=== PATIENT | female | born 1930 | race Caucasian/White ===

== ENCOUNTER 2016-10-21 09:57 | Inpatient (IN) | payer OTHER ==
[~2016-10-21] VITALS: Ht 160 cm; Wt 47.6 kg
--- NOTE | ~2016-10-21 | EKG ---
[place] [address] [facility] [place] [address] ELECTROCARDIOGRAM REPORT Name: MARAH BUTTS Room #: 315-P ADM IN M.R.#: [id number] Admission: 10/21/16 Attend Phys: Vikas Levin MD Discharge: Date of : 32 Report #: [id number] THIS REPORT FOR: //name// [facility] ED Test Date: 2016-10-21 Test Time: 10:04:41 Pat Name: MARAH BUTTS Department: Room: [facility] Gender: F Coordinator Skill Training Program: MZOOK : 1930 Requested By: Gopi Jacobsen Order Number: [id number] MD: Israel Wheeler Measurements Intervals [place] Rate: 90 P: 51 AL: 161 QRS: 25 QRSD: 81 T: 60 QT: 342 QTc: 419 Interpretive Statements Sinus rhythm Consider left ventricular hypertrophy Anterior Q waves, possibly due to LVH Compared to ECG 10/10/2016 18:31:21 No significant changes Electronically Signed On 10-22-2016 11:44:35 CDT by Israel Wheeler [email or web address] <ELECTRONICALLY SIGNED> By: Israel Wheeler MD, [facility] 10/22/16 1144 1004 1004 Israel Wheeler MD, [facility] /EPI
--- NOTE | ~2016-10-21 | H ---
[facility] [place] [address] HISTORY AND PHYSICAL Name: MARAH BUTTS Room #: 315-P ADM IN M.R.#: [id number] Admission: 10/21/16 Attend Phys: Vikas Levin MD Discharge: Date of : 32 Report #: [id number] THIS REPORT FOR: //name// CC: Yoni Levin DATE OF SERVICE: 10/21/2016 CHIEF COMPLAINT: Left-sided facial droop, slurred speech and an unusual feeling in her left arm and leg. HISTORY OF PRESENT ILLNESS: When she woke this morning, she noticed that she had a left-sided facial droop with a funny feeling in left arm and leg and had some slurred speech when she called the paramedics. She reports a history of having had strokes over several years that affected her left side and also fine motor skills in both hands. Because of this concern, she called the paramedics, so that she "wouldn't be having a stroke by myself at home." The weakness feelings lasted only 5 or 10 minutes, presumably this refers to the facial droop, but this discomfort feeling persisted on through her Emergency Room visit and until the time of my examination 4 hours later. She reports having a loss of fine motor skills in both hands. She has a history of hemiplegic migraines that are well managed or prevented by medications. She reports that this episode today is not a migraine because she did not have any headache. Review of her hospital records show that on 06/16/2013, she presented to the Emergency Room with acute numbness of her left arm and leg. Records available stretch back to 07/01/2011 when she developed left-sided numbness and tingling in the middle of the night. She went back to sleep and when she awoke in the morning, the left arm numbness and tingling and left hand weakness persisted. The numbness of the left leg persisted, but there was no weakness in the left leg. She did report vaguely having had several TIAs 10 years in the past from that time, which could have been about the year 1999. She was seen in Neurology consultation by Dr. Feldman and followed again the next day, and he felt that she had symptoms suggestive of a TIA with the large vessels remaining open. He thought further evaluation as an outpatient appropriate. Her symptoms were completely resolved in under 24 hours. She next came to the hospital on 08/21/2012 after developing dizziness at home and treating it with a dose of Imitrex. She vomited the Imitrex, and again noticed an increased sensation of iciness and heaviness of her left lower leg, and self presented to the Emergency Room. Dr. Davies of the Neurology service felt there were several features that occurred, but had suggested that her episode was a TIA. She noted weakness in her left leg consistent with her history of sciatica on the 08/21/[address] Davies noticed atrophy of the intrinsic [address] [address] HISTORY AND PHYSICAL Name: MARAH BUTTS Room #: 315-P [facility] IN M.R.#: [id number] Admission: 10/21/16 Attend Phys: Vikas Levin MD Discharge: Date of : 32 Report #: [id number] hand muscles, more on the left than on the right. Fine finger movements were somewhat clumsy partially due to arthritic changes in the hands. There was no weakness in either the right or left upper extremities. There was a 20% decrease in sensitivity to pin prick on the left side relative to the right side in both arms and the legs. She presented again 10 months later with acute onset of numbness in her left arm and leg. The cause of the symptoms was not clear to him and they completely resolved within several hours. On that visit, Dr. Velez and Dr. Feldman felt that she most likely had experienced a hemiplegic migraine. Recommendation was for preventive treatment with verapamil. The previous recommendation against sumatriptan was reaffirmed. She was admitted again for left sided hemiparesis symptoms on 01/22/2014, at which time, Dr. Schreiber again felt they were from hemiplegic migraine and prophylactic medications were adjusted. On 06/05/2015, she had recurrent left-sided symptoms and was again felt to be having a TIA by the Neurology oracle drm consultant, Dr. Joyce. Note is made that the MRI imaging in all of these previous hospitalizations has been negative. She was evaluated by Dr. 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 OTHER PAST MEDICAL HISTORY: She was admitted 09/01/2016 clinically for influenza A, and also had weakness in her left hip and upper thigh pain. She has had COPD, aspiration pneumonia, hypertension, hypothyroidism, SIADH, fractured pelvis 2014, unclear history of diastolic congestive heart failure with a negative nuclear cardiac stress test. MEDICATIONS: List includes metoprolol tartrate 50 mg daily, spironolactone 25 mg daily, gabapentin 300 mg at bedtime daily, 40 mg of amitriptyline at bedtime, omega 3 fatty acid 2000 mg daily, multiple vitamin, vitamins with iron and minerals, calcium with vitamin D, vitamin C 500 mg daily, 81 mg of aspirin daily and levothyroxine 0.05 mg daily. ALLERGIES: AMLODIPINE caused swelling, allergic to MORPHINE. SOCIAL HISTORY: She smoked cigarettes on a very limited social basis when she was in college many decades ago. She said no alcohol use similarly in decades. No recreational drug use. REVIEW OF SYSTEMS: Negative except for a slight cough that began at same time as the left sided facial droop and slurred speech. PHYSICAL EXAMINATION: [facility] [address] [place] [address] HISTORY AND PHYSICAL Name: MARAH BUTTS Room #: 315-P [facility] IN .R.#: [id number] Admission: 10/21/16 Attend Phys: Vikas Levin MD Discharge: Date of : 32 Report #: [id number] GENERAL: Shows an 86-year-old female in no acute distress at the time of my examination. She is awake, alert and oriented and able to answer questions with details. HEENT: Unremarkable. She did not exhibit a left facial droop. The oropharynx is normal. LUNGS: Does have a congested cough, with a few rhonchi. CARDIOVASCULAR: The heart tones are normal and the rhythm is regular. ABDOMEN: Soft and nontender, without hepatosplenomegaly or masses. EXTREMITIES: There is no edema in the lower extremities. Detailed strength testing was not carried out in both hands and the upper arms. There is marked thenar eminence atrophy, more so on the left than on the right, and the patient readily notes that she has lost fine motor movement coordination in the fingers of both hands. There is no clear weakness identified in the legs. The patient was able to walk with the assistance only of holding on to the examiner's hand for balance. At times, she was able to let go of my hand and walk without losing her balance. Her gait was fluid, and she walked freely to the door of her hospital room, turned around and walked back. She did complain of some unsteadiness when she stood up, but specifically denied vertigo. Romberg's test result was normal. IMAGING: Noncontrast CT scan of the head was negative for acute evident according to the Emergency Room physician. Chest x-ray showed that a previous basilar pneumonia from 10/10/2016 had completely resolved radiographically. A hiatal hernia was present and unchanged. DATA: Potassium was low at 3.4, BUN was mildly elevated at 19, but creatinine was stable at 0.7. Blood sugar mildly low at 67. Albumin is low at 2.74, qualifying for severe malnutrition. Ionized calcium was low at 3.3. C-reactive protein was elevated at 13.8, but not as high as 28.3 from 05/05/2015. White blood cells were elevated at 12.4 thousand with a left shift. Note is made that this is despite the fact that her previous pneumonia has cleared by chest x ray. Noted also made that her white blood cell count was 4700 when she had the radiographic findings of pneumonia. Hemoglobin is low at 10.9 compared to 13.3 baseline. There is a left shift of 69% segmented neutrophils. TSH is elevated at 5.228. ASSESSMENT: 1. Episode of left-sided weakness more in the hand than in the leg. She appears to have returned back to baseline at the time of my examination. This could qualify as a transient ischemic attack. 2. Multiple similar events without a permanent neurological deficit [address] [address] HISTORY AND PHYSICAL Name: MARAH BUTTS Room #: 315-P ADM IN M.R.#: [id number] Admission: 10/21/16 Attend Phys: Vikas Levin MD Discharge: Date of : 32 Report #: [id number] attributable to the central nervous system as reviewed in the records above. MRI findings have been reported as negative consistently. 3. Loss of fine motor movement more in the left than the right with thenar muscle atrophy that may fit with carpal tunnel syndrome changes. 4. Serum albumin of 2.7 fulfills criteria for severe malnutrition. 5. Leukocytosis of unclear etiology. 6. Elevated inflammatory marker HSCRP, but less so than 05/05/2015, 2 years ago. 7. Albumin 2.7, qualifies for severe malnutrition. 8. Distant history of left leg weakness explainable from sciatica. 9. Other multiple medical problems. 10. Congested cough symptoms and abnormal lung findings with normal chest x-ray. 11. Hx aspiration. 12. Hx of left sided vocal cord paralysis. 13. SIRS with WBC's over 12,000 and episode of tachycardia 120. Sepsis with inflamation marker of HS-CRP over 2 STD, and suspected aspiration pneumonitis occurring at the time of the event. PLAN: The patient has been admitted. Aspirin 81 mg will be continued, and Plavix 75 mg 1 daily is being added as well as therapeutic anticoagulation with twice daily Lovenox. MRI scanning will be obtained tomorrow, and she may need neurology consultation as well. By: [id number] Vikas Levin MD /nt
[~2016-10-21 09:57] MED LIST: ACCUNEB SO1.25 MG/1; ACETAMINOP500 MG/5 M PO; ALBUTEROL2.5 MG/0.1 INH; ALDACTONE25 MG PO; ALEVE220 M1 PO; AMITRIPTYLINE H10 M1 PO; AMITRIPTYLINE H10 M3 PO; AMITRIPTYLINE H25 M2; ASPIRIN EC81 M1 PO; ATACAND PO; AUGMENTIN 875-1 EACH PO; AZITHROMYCIN 2250 MG PO; C-10001000 M1 PO; CALCIUM 600 +1 EAC1 PO; CALTRATE 600 +1 EACH PO; CALTRATE-600 W1 EACH PO; COMPAZINE IV PUSH; COMPAZINE25 MG RECTAL; COZAAR 25 MG TA25 MG PO; COZAAR 50 MG TA50 M1 PO; COZAAR 50 MG TA50 M2; COZAAR 50 MG TA50 M2 PO; COZAAR100 MG PO; DUONEB 2.5-0.5 M3 ML INH; ENOXAPARIN30 MG/0.1 SUBQ; FLOMAX0.4 MG PO; GABAPENTIN PO; GABAPENTIN100 MG PO; GLUCOSAMIN-CHO1 EACH PO; GLUCOSAMINE &1 EAC1 PO; GLUCOSAMINE CH1 EAC7 PO; GLUCOSAMINE HC500 MG PO; HYDROCORTISONE30 G9 RE; IBUPROFEN 200200 M1 PO; IMITREX 50 MG T50 M1 PO; IMITREX 50 MG T50 MG PO; LEVAQUIN 500 M500 M2 PO; LEVOTHYROXINE0.05 MG PO; LOPRESSOR25 PO; LOPRESSOR50 PO; MECLIZINE HCL25 MG PO; MELOXICAM7.5 MG PO; METOCLOPRAMIDE10 MG PO; METOPROLOL TARTRATE PO; MOBIC7.5 MG PO; MUCINEX DM TABL1 TA1 PO; MULTIVITAMINS PO; MULTIVITAMINS1 EAC7 PO; NAPROSYN250 MG PO; NEURONTIN 300300 M1 PO; NIACIN 500 MG500 M1 PO; NIACIN1000 MG PO; NORTREL1 EAC1 PO; NORTRIPTYLINE H10 M1 PO; NORTRIPTYLINE H50 M3 PO; NUCYNTA50 MG PO; OMEGA-31000 M1 PO; ONDANSETRON HCL4 M1 IV PUSH; PAMELOR10 MG PO; PLAVIX 75 MG TA75 M1 PO; PREDNISONE 10 M10 M1 PO; PREDNISONE 10 M10 MG PO; PREDNISONE 20 M20 MG PO; SPIRONOLACTONE25 M1 PO; TAMIFLU30 MG PO; TOPAMAX 25 MG T25 M1 PO; TOPROL XL25 MG PO; TOPROL XL50 MG PO; TYLENOL325 MG PO; ULTRAM 50MG TAB50 MG PO; UNICOMPLEX M TA1 TA1 PO; VERAPAMIL SR 1120 MG PO; VITAMIN B-1100 M2 PO; VITAMIN D-32000 UNIT PO; VITAMIN D2000 UNIT PO; VITAMIN D400 UNIT; VITAMINC500 PO; ZOFRAN ODT4 MG PO; [UNRECOGNIZED DRUG - CODE] PO; [UNRECOGNIZED DRUG - OTHER]
[2016-10-21 09:58] VITALS: BP 107/72
[2016-10-21 10:11] LABS: POC CA IONIZED 3.3 mg/dL (4.5-5.3); POC CREATININE 0.3 mg/dL (0.6-1.3); POC HEMOGLOBIN 10.9 g/dL (12.0-15.0); POC POTASSIUM 3.4 mmol/L (3.5-5.1)
[2016-10-21] MEDS ORDERED: AMITRIPTYLINE H10 M3 PO (10:12)
[2016-10-21] MEDS ORDERED: OMEGA-31000 M1 PO (10:12)
[2016-10-21] MEDS ORDERED: CALCIUM 600 +1 EAC1 PO (10:14)
[2016-10-21] MEDS ORDERED: UNICOMPLEX M TA1 TA1 PO (10:14)
[2016-10-21] MEDS ORDERED: VITAMINC500 PO (10:15)
[2016-10-21 10:28] LABS: ABSOLUTE NEUTROPHILS 8.5 thou/uL (1.4-8.2); BASOPHILS 0.3 % (0.0-2.0); EOSINOPHILS 2.2 % (0.0-3.0); HEMATOCRIT 42.3 % (37.0-47.0); LYMPHOCYTES 18.9 % (24.0-44.0); MCH 30.6 pg (26.0-34.0); MCHC 33.1 g/dL (28.0-37.0); MCV 92.6 fL (80.0-100.0); MONOCYTES 9.6 % (1.0-8.0); PLATELET COUNT 344 thou/uL (150-400); RBC 4.57 mil/uL (4.20-5.00); RDW 14.2 % (10.5-14.5); WBC 12.4 thou/uL (4.0-11.0)
[2016-10-21 10:29] LABS: MANUAL DIFF NO
[2016-10-21 10:39] LABS: PROTIME 10.8 Seconds (9.3-11.4)
[2016-10-21 10:40] LABS: APTT 23.7 Seconds (24.5-32.8)
[2016-10-21 10:41] LABS: ALBUMIN 2.7 g/dL (3.4-5.0); ALKALINE PHOSPHATASE 60 U/L (46-116); ANION GAP 8 mmol/L (7-16); BUN 19 mg/dL (7-18); CALCIUM 7.9 mg/dL (8.5-10.1); CHLORIDE 103 mmol/L (98-107); CO2 26 mmol/L (21-32); CREATININE 0.7 mg/dL (0.6-1.0); GLUCOSE 91 mg/dL (74-106); MAGNESIUM 1.9 mg/dL (1.8-2.4); SGOT 23 U/L (15-37); SGPT 27 U/L (30-65); SODIUM 137 mmol/L (136-145); TOTAL BILIRUBIN 0.6 mg/dL (<0.1-1.0); TOTAL PROTEIN 6.1 g/dL (6.4-8.2); TROPONIN-I < 0.04 ng/mL (<0.04-0.07)
[2016-10-21 14:24] VITALS: BP 111/65
[2016-10-21 14:40] VITALS: BP 140/70
[2016-10-21 19:50] VITALS: BP 128/80
[2016-10-21 23:30] VITALS: BP 140/95
[2016-10-22] VITALS (7 sets, daily range): BP systolic 111–176; BP diastolic 72–110
[2016-10-23 04:29] VITALS: BP 104/62
[2016-10-23 08:09] VITALS: BP 153/74
[2016-10-23 12:26] LABS: ABSOLUTE NEUTROPHILS 6.3 thou/uL (1.4-8.2); BASOPHILS 0.6 % (0.0-2.0); EOSINOPHILS 2.8 % (0.0-3.0); HEMATOCRIT 42.2 % (37.0-47.0); HEMOGLOBIN 14.1 gm/dL (12.0-15.0); LYMPHOCYTES 17.1 % (24.0-44.0); MCH 31.3 pg (26.0-34.0); MCHC 33.5 g/dL (28.0-37.0); MCV 93.7 fL (80.0-100.0); MONOCYTES 9.6 % (1.0-8.0); PLATELET COUNT 298 thou/uL (150-400); POLYS 69.9 % (36.0-66.0); RBC 4.51 mil/uL (4.20-5.00); RDW 14.4 % (10.5-14.5)
[2016-10-23 12:28] LABS: MANUAL DIFF NO
[2016-10-23 12:51] LABS: ALBUMIN 2.8 g/dL (3.4-5.0); CALCIUM 8.3 mg/dL (8.5-10.1); CREATININE 0.6 mg/dL (0.6-1.0); POTASSIUM 4.3 mmol/L (3.5-5.1); TOTAL BILIRUBIN 0.5 mg/dL (<0.1-1.0)
[2016-10-23 12:57] VITALS: BP 137/81
[2016-10-23 16:51] VITALS: BP 149/81
[2016-10-23 20:00] VITALS: BP 136/79
[2016-10-24 04:00] VITALS: BP 156/88
[2016-10-24 04:04] LABS: AMP/METHAMP Negative (Negative); BARBITURATES Negative (Negative); BENZODIAZEPINES Negative (Negative); COCAINE Negative (Negative); METHADONE Negative (Negative); OPIATES Negative (Negative); PCP Negative (Negative); THC Negative (Negative)
[2016-10-24 08:33] VITALS: BP 100/65
[2016-10-24] MEDS ORDERED: MIRALAX17 GM PO (10:42)
[2016-10-24] MEDS ORDERED: CLOPIDOGREL75 MG PO (10:42)
[2016-10-24] MEDS ORDERED: ACETAMINOPHEN325 M1 PO (10:42)
[2016-10-24] MEDS ORDERED: FLOMAX0.4 MG PO (10:42)
[2016-10-24] MEDS ORDERED: VITAMIN D1000 UNI1 PO (10:42)
[2016-10-24] MEDS ORDERED: LEVOTHYROXIN0.075 MG PO (10:42)
[2016-10-24 12:34] VITALS: BP 131/76
[2016-10-24 16:16] VITALS: BP 131/76
[2016-10-25 09:35] LABS: URINE BILIRUBIN NEGATIVE (Negative); URINE BLOOD TRACE (Negative); URINE COLOR YELLOW; URINE GLUCOSE-RANDOM* NEGATIVE (Negative); URINE KETONES NEGATIVE (Negative); URINE NITRITE NEGATIVE (Negative); URINE PROTEIN (DIPSTICK) NEGATIVE (Negative); URINE UROBILINOGEN 0.2 E.U./dl (0.2-1.0)
== END 2016-10-24 17:15 | disposition home or self-care (01) | DRG 102 ==
LOC: ER 09:57 → EROBS 12:25 → 3N 12:25 → EROBS 14:25 → 3N 14:39
PROVIDERS: Emergency Medicine; Internal Medicine
DX: G43.409 Hemiplegic migraine, not intractable, without status migrainosus (principal); E43 Unspecified severe protein-calorie malnutrition; G92 Toxic encephalopathy; E86.0 Dehydration; E03.9 Hypothyroidism, unspecified; E16.2 Hypoglycemia, unspecified; F17.210 Nicotine dependence, cigarettes, uncomplicated; M54.30 Sciatica, unspecified side; R13.12 Dysphagia, oropharyngeal phase; K21.9 Gastro-esophageal reflux disease without esophagitis; M19.90 Unspecified osteoarthritis, unspecified site; K44.9 Diaphragmatic hernia without obstruction or gangrene; I11.9 Hypertensive heart disease without heart failure; I99.9 Unspecified disorder of circulatory system; Z98.49 Cataract extraction status, unspecified eye; Z90.710 Acquired absence of both cervix and uterus; Z88.8 Allergy status to other drugs, medicaments and biological substances; Z86.73 Personal history of transient ischemic attack (TIA), and cerebral infarction without residual deficits; Z88.6 Allergy status to analgesic agent; Z90.49 Acquired absence of other specified parts of digestive tract
CPT/HCPCS: 10096

== ENCOUNTER 2016-11-20 12:50 | Emergency (ER) | payer OTHER ==
[~2016-11-20] VITALS: Ht 160 cm; Wt 55.3 kg
--- NOTE | ~2016-11-20 | EKG ---
[place] [address] [facility] [place] [address] ELECTROCARDIOGRAM REPORT Name: MARAH BUTTS [id number] Admission: 11/20/16 Attend Phys: Discharge: 11/20/16 Date of : 32 Report #: [id number] THIS REPORT FOR: //name// [facility] ED Test Date: 2016-11-20 Test Time: 13:58:35 Pat Name: MARAH BUTTS Department: Room: Gender: F Helicopter Technician: JESSICA : 1930 Requested By: Marlin Diallo Order Number: [id number] MD: Garth Redd Measurements Intervals [place] Rate: 64 P: 49 PA: 188 QRS: 27 QRSD: 91 T: 39 QT: 408 QTc: 421 Interpretive Statements Sinus rhythm Probable anteroseptal infarct, recent Minimal ST elevation, inferior leads Lateral leads are also involved Electronically Signed On 11-22-2016 9:44:01 CDT by Garth Redd [email or web address] <ELECTRONICALLY SIGNED> By: Garth Redd MD 11/22/16 0944 1358 1358 Garth Redd MD /NIKOS
[~2016-11-20 12:50] MED LIST changes: +ACETAMINOPHEN325 M1 PO; +CLOPIDOGREL75 MG PO; +LEVOTHYROXIN0.075 MG PO; +MIRALAX17 GM PO; +VITAMIN D1000 UNI1 PO
[2016-11-20] MEDS ORDERED: VITAMIN B-1100 M1 PO (13:15)
[2016-11-20 13:58] LABS: ABSOLUTE NEUTROPHILS 4.3 thou/uL (1.4-8.2); BASOPHILS 0.5 % (0.0-2.0); EOSINOPHILS 0.7 % (0.0-3.0); HEMATOCRIT 39.1 % (37.0-47.0); HEMOGLOBIN 13.2 gm/dL (12.0-15.0); LYMPHOCYTES 25.6 % (24.0-44.0); MANUAL DIFF NO; MCH 31.3 pg (26.0-34.0); MCHC 33.6 g/dL (28.0-37.0); MCV 93.1 fL (80.0-100.0); MONOCYTES 8.2 % (1.0-8.0); PLATELET COUNT 322 thou/uL (150-400); RDW 14.3 % (10.5-14.5); WBC 6.7 thou/uL (4.0-11.0)
[2016-11-20 14:05] LABS: ANION GAP 8 mmol/L (7-16); BUN 24 mg/dL (7-18); CALCIUM 8.7 mg/dL (8.5-10.1); CHLORIDE 102 mmol/L (98-107); CO2 27 mmol/L (21-32); CREATININE 0.7 mg/dL (0.6-1.0); GLUCOSE 112 mg/dL (74-106); POTASSIUM 4.4 mmol/L (3.5-5.1); SODIUM 137 mmol/L (136-145)
[2016-11-20 14:17] LABS: NT-PRO BRAIN NAT PEPTIDE 45 pg/mL (<300); TROPONIN-I < 0.04 ng/mL (<0.04-0.07)
[2016-11-20 16:19] VITALS: BP 121/67
== END 2016-11-20 16:20 | disposition home or self-care (01) ==
LOC: ER 12:50
PROVIDERS: Emergency Medicine
DX: R53.1 Weakness (principal); I10 Essential (primary) hypertension; Z86.73 Personal history of transient ischemic attack (TIA), and cerebral infarction without residual deficits; Z88.5 Allergy status to narcotic agent; Z88.8 Allergy status to other drugs, medicaments and biological substances

== ENCOUNTER 2016-11-22 09:52 | Inpatient (IN) | payer OTHER ==
[~2016-11-22] VITALS: Ht 157.5 cm; Wt 54.2 kg
--- NOTE | ~2016-11-22 | HC ---
[facility] [place] [address] CONSULTATION Name: MARAH BUTTS Room #: 437-P ADM IN M.R.#: [id number] Admission: 11/22/16 Attend Phys: Yoni Schreiber MD Discharge: Date of : 32 Report #: [id number] THIS REPORT FOR: //name// CC: Yoni Schreiber DATE OF SERVICE: 11/23/2016 REASON FOR CONSULTATION: Abnormal EKG, rule out myocardial infarction. HISTORY OF PRESENT ILLNESS: The patient is an 86-year-old female with no known heart disease. She follows with a brigadier at [facility] and recently underwent a nuclear stress test on 08/17/2016 which showed an EF of 75% with no ischemic changes. The patient has been having increased fatigue, has had some nausea and vomiting. She denies any problems with chest pain or chest tightness. She reports she has chronic shortness of breath of unclear etiology. She denies any problems with PND, orthopnea, presyncope or syncope. PAST MEDICAL HISTORY: 1. Paralyzed vocal cord. 2. Hypertension. 3. Some diastolic heart failure. 4. Prior TIAs. 5. Hypothyroidism,. 6. Possible COPD. 7. Migraines headaches. SOCIAL HISTORY: She lives at [employer]. Her was a physician who recently . She reports she smoked diffuse cigarettes in college. FAMILY HISTORY: Includes prior CVAs. MEDICATIONS: At home include metoprolol, spironolactone, gabapentin, multivitamin, calcium, ascorbic acid, thiamine, tamsulosin, Tylenol, and Synthroid. ALLERGIES: INCLUDE AMLODIPINE AND MORPHINE. REVIEW OF SYSTEMS: GENERAL: She reports some subjective fevers at home, but no chills. HEENT: No sore throat. CARDIOVASCULAR: As above. PULMONARY: Chronic shortness of breath, but no productive cough. GASTROINTESTINAL: She had some nausea, vomiting at home a few days ago. GENITOURINARY: No dysuria. MUSCULOSKELETAL: No myalgias, arthralgias. ENDOCRINE: Thyroid issues. [facility] [address] [place] [address] CONSULTATION Name: MARAH BUTTS Room #: [facility] IN .R.#: [id number] Admission: 11/22/16 Attend Phys: Yoni Schreiber MD Discharge: Date of : 32 Report #: [id number] NEUROLOGIC: Some possible TIAs in the past. PHYSICAL EXAMINATION: VITAL SIGNS: Temperature 36.8, pulse 85, respiration 20, blood pressure 109/69, sats are 93%. GENERAL: She is in no acute distress. HEENT: Oropharynx clear. Sclerae anicteric. NECK: Supple, no thyromegaly. HEART: Regular rate and rhythm with normal S1, S2. No S3, S4. She does not have elevated jugular venous pressure, nor does she have a positive hepatojugular reflex. LUNGS: Clear to auscultation bilaterally. ABDOMEN: Soft, nontender, nondistended with no hepatosplenomegaly. EXTREMITIES: There is no clubbing, cyanosis, edema. Cranial nerves 2-12 are intact. LABORATORY DATA: A pH 7.4, pCO2 of 30, pO2 71, CBC: White count 7.1, hemoglobin 13, platelets are 336, her coags D-dimer is 0.4. Chemistries: Sodium 135, potassium 4.1, creatinine 0.6. Troponin x 1 negative. CRP is normal. BNP is pending. I reviewed her prior 12-lead EKGs which showed normal sinus rhythm, normal intervals and no active ischemia with some mild early repolarization noted. There is suggestion of a possible anterior infarct; however, based on her echocardiogram today, which has been read she has normal LV size and function with no evidence of a regional wall motion abnormalities to suggest a recent myocardial infarction. EF is 60%. There is some grade 1 diastolic dysfunction. Normal right ventricular size, some mild aortic regurgitation and some mild pulmonary hypertension with PA pressures in the 30s and of note, I have reviewed her nuclear stress test performed at the [facility] on 08/17/2016 showing no evidence of ischemia or prior infarct with a preserved EF. ASSESSMENT AND PLAN: In summary, the patient is an 86-year-old female presenting with increased weakness, fatigue, who had an abnormal EKG. Based on my interpretation I do not believe there is any acute ischemia. The patient also has no symptoms to suggest any ongoing cardiac issues. Her echocardiogram today fortunately was normal. As such, I do not think a cardiac component is involved at this time. I would recommend a routine followup with her primary brigadier and continued optimization of her cardiovascular risk factors. Thank you for allowing me to participate in her care. Feel free to contact me with any questions. By: [id number] Garth Redd MD /nt
--- NOTE | ~2016-11-22 | EKG ---
[address] [address] ELECTROCARDIOGRAM REPORT Name: MARVA BUTTSETTA KATELYN Room #: 437-P [facility] IN M.R.#: [id number] Admission: 11/22/16 Attend Phys: Yoni Schreiber MD Discharge: 11/24/16 Date of : 32 Report #: [id number] THIS REPORT FOR: //name// [facility] Test Date: 2016-11-23 Test Time: 13:14:43 Pat Name: MARAH BUTTS Department: Room: 437 P Gender: F Environment Artist: WAQAS : 1930 Requested By: Garth Redd Order Number: [id number] MD: Garth Redd Measurements Intervals [place] Rate: 78 P: 48 DC: 173 QRS: 12 QRSD: 81 T: 38 QT: 379 QTc: 432 Interpretive Statements Sinus rhythm Left atrial enlargement Anteroseptal infarct, age indeterminate Electronically Signed On 11-27-2016 8:17:50 CDT by Garth Redd [email or web address] <ELECTRONICALLY SIGNED> By: Garth Redd MD 11/27/16 0817 1314 13 Garth Redd MD /NIKOS
--- NOTE | ~2016-11-22 | H ---
[facility] [place] [address] HISTORY AND PHYSICAL Name: MARAH GUZMAN Room #: 437-P ADM IN M.R.#: [id number] Admission: 11/22/16 Attend Phys: Yoni Schreiber MD Discharge: Date of : 34 Report #: [id number] THIS REPORT FOR: //name// CC: Yoni Schreiber DATE OF SERVICE: 11/22/2016 HISTORY OF PRESENT ILLNESS: The patient presented at the Emergency Room on 11/20/2016 with complaints of chest congestion especially with concerns regarding history of aspiration pneumonia. The general impression upon of the Emergency Room was that of generalized weakness. Her vital signs at that time were good and extensive workup failed to reveal any significant problems with hypoxia or elevated white blood cell count or any evidence of an infiltrate on chest x-ray. She called me back today stating that she felt quite weak, unable to get out of bed and cared for herself and felt again as though she was suffering from pneumonia. Arranged for her to be directly admitted to the hospital for further evaluation and treatment. PAST MEDICAL HISTORY: Very extensive and includes paralyzed vocal cord, which is related to her problems with aspiration. She also has hypertension, some diastolic heart dysfunction, recurrent aspiration pneumonia. She has had episodes of hemiplegia, which have been variably diagnosed as transient ischemic attacks versus hemiplegic migraines in the past. She has been seen by multiple neurologists in the past. She has also been worked up for her multiple somatic issues at the [facility]. She also has history of urinary retention, hypothyroidism, osteoporosis, osteoarthritis multiple sites, peripheral neuropathy and vitamin B12 deficiency. 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 MEDICATIONS: At the time of admission include metoprolol, spironolactone, gabapentin, multivitamin, calcium with vitamin D3, ascorbic acid, thiamine, tamsulosin, p.r.n. Tylenol, polyethylene glycol for constipation, levothyroxine and cholecalciferol. ALLERGIES: She is allergic to AMLODIPINE and MORPHINE. SOCIAL HISTORY: The patient lives alone in [facility] in home. She was about a year ago from Dr. Jose Guzman. She smoked for a time many years ago, but has not smoked a very long time. Has never had any vices related to alcohol or recreational drug use. She has 4, 5 children, I believe and multiple grandchildren. 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 [address] [address] HISTORY AND PHYSICAL Name: MARAH GUZMAN Room #: 437-P [facility] IN M.R.#: [id number] Admission: 11/22/16 Attend Phys: Yoni Schreiber MD Discharge: Date of : 32 Report #: [id number] FAMILY HISTORY: Significant for heart disease and strokes in multiple family members. REVIEW OF SYSTEMS: She denies any fever, chills or sweats. She denies vomiting or nausea, but just feels lousy, very nonspecifically. She feels better when she is lying down. She feels worse when she is standing up and she cannot walk very far before she has to lie down again. She denies any problems with swelling or any new joint pains or aches. She always uses her walker and she has not had any falls recently, she relates, and she did not fall to the ground but rather caught herself with her walker. The last time she was treated with steroids was at least 1 month ago. PHYSICAL EXAMINATION: Today, VITAL SIGNS: At the hospital reveal temperature 98 on arrival with pulse 62, respirations 13 per minute, blood pressure 113/65 and oxygen saturation on room air of 98%. Her height today is 5 feet 2 inches and has variably been reported as tall as 5 feet 4 inches in the hospital chart. Her current weight on bed scale was 119.5 pounds. GENERAL: This is a very pleasant older white female who keeps her hair in youthful red color. HEENT: Extraocular muscles are intact. There is some redundancy of her eyelids. Oropharynx moist and pink. Sinus is nontender. Hearing grossly normal. NECK: Without adenopathy or thyromegaly or mass. LUNGS: Fairly clear except for some crackles in the left base. No dullness noted. No wheezing noted. No respiratory distress while recumbent. CARDIAC: Reveals a distant, but regular rhythm. ABDOMEN: Soft, bowel sounds present, no visceromegaly or masses. EXTREMITIES: Without cyanosis or clubbing or significant peripheral edema. She does have significant degenerative changes in her hands, especially with a swan neck deformity noted in her first metacarpophalangeal joints. The strength is generally good throughout and equal on both sides. Gait was not reassessed, but she assured me she was able to walk fairly normally for short distances. RECTAL: Not performed today. NEUROLOGIC: No focal deficits of cranial nerves or deep tendon reflexes were otherwise noted today. ASSESSMENT AND PLAN: 1. Aspiration pneumonia, appears to be the most likely diagnosis with the patient's presentation, even though her preliminary chest x-ray in the Emergency Room 48 hours before was negative. We will test again. I think it is quite likely, however, that she forgets to position her head appropriately when she swallows, as previously instructed. We will have speech therapy to visit with her again about this and monitor closely. She may be somewhat dehydrated, although it is not immediately obvious on clinical exam. We will get cultures to start her on intravenous antibiotics immediately and monitor her closely. We [facility] [address] [place] [address] HISTORY AND PHYSICAL Name: MARAH GUZMAN Room #: 437-P [facility] IN .R.#: [id number] Admission: 11/22/16 Attend Phys: Yoni Schreiber MD Discharge: Date of : 32 Report #: [id number] will need to check an arterial blood gas and D-dimer checking for any evidence of pulmonary emboli. If her D-dimer is elevated and her alveolar arterial oxygen gradient is significantly elevated, we will entertain that diagnosis and perhaps pursue angiography of the pulmonary arteries. 2. Generalized malaise accompanying the above. The pneumonia is most likely cause; however, given the use of steroids in her not so distant past, I will test her for adrenal gland insufficiency on the morning following this admission and then while awaiting for results, start her on intravenous hydrocortisone as a sort of clinical test to see if she gets any improvement in her symptoms on that basis. I plan to give her 3 doses and then to reassess her clinical status. She will be getting intravenous fluids starting this afternoon as well and if she is dehydrated, this should help. We will be awaiting chemistry and CBC and urinalysis from the admit labs. 3. Hypertension. We will monitor and treat accordingly. Continue home medications at this time. 4. Hypothyroidism. Continue current medications. 5. Hyperlipidemia. We will continue current medications. 6. Osteoarthritis, exercise and medications appeared to be her best choice at the present time. 7. Diastolic congestive heart failure in the past. I do not think this appears to be an issue at this time, but we will monitor and treat accordingly. Will try and avoid excessive over rehydration intravenously. 8. Osteoporosis. 9. History of chronic dysphagia. See the speech therapy evaluation. No dietary restrictions. <ELECTRONICALLY SIGNED> By: Yoni Schreiber MD 11/23/16 0914 1734 1858 Yoni Schreiber MD /nt
--- NOTE | ~2016-11-22 | EKG ---
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: VIDHYA : [id number] Requested By: Yoni Schreiber Order Number: [id number] MD: Garth Redd Measurements Intervals [place] Rate: 68 P: -7 CO: 165 QRS: 36 QRSD: 84 T: 47 QT: 396 QTc: 422 Interpretive Statements Sinus rhythm Probable anteroseptal infarct, recent Compared to ECG 11/20/2016 13:58:35 ST (T wave) deviation no longer present Myocardial infarct finding still present Electronically Signed On 11-27-2016 8:08:37 CDT by Garth Redd [email or web address] <ELECTRONICALLY SIGNED> By: Garth Redd MD 11/27/16 0808 23 23 Garth Redd MD /EPI
--- NOTE | ~2016-11-22 | 2DMMODE ---
[facility] [place] [address] 2 D/M-MODE ECHOCARDIOGRAM Name: MARAH BUTTS Room #: 437-P [facility] IN M.R.#: [id number] Admission: 11/22/16 Attend Phys: Yoni Schreiber MD Discharge: Date of : 32 Date of Service: 11/23/16 1256 Report #: [id number] THIS REPORT FOR: //name// APPROVED REPORT Study performed: 11/23/2016 11:53:56 EXAM: Comprehensive 2D, Doppler, and color-flow Echocardiogram Patient Location: Echo lab Room #: 437 Blood Pressure: 124/84 mmHg HR: 71 bpm Rhythm: NSR Other Information Study Quality: Good Indications Abnormal EKG. Hx: TIA, HTN 2D Dimensions RVDd: 33.20 mm LVEF(%): 52.76 (>50%) IVSd: 9.95 (7-11mm) LVOT Diam: 20.76 (18-24mm) LVDd: 32.00 mm PWd: 10.09 (7-11mm) Ascending Ao: 33.28 (22-36mm) LVDs: 23.61 (25-40mm) Aortic Root: 33.12 mm Terrazas's LVEF: 52.76 % Volumes Left Atrial Volume (Systole) Single Plane 4CH: 55.56 mL Single Plane 2CH: 54.44 mL LA ESV Index: 38.00 mL/m2 Aortic Valve AoV Peak Saul.: 1.40 m/s AO Peak Gr.: 7.79 mmHg LVOT Max P.17 mmHg LVOT Max V: 1.14 m/s BIJAN Vmax: 2.76 cm2 AI Vmax: 3.94 m/s AI Massac: 1.69 m/s2 AI PHT: 675.39 ms [facility] [place] [address] 2 D/M-MODE ECHOCARDIOGRAM Name: MARAH BUTTS Room #: 437-P [facility] IN M.R.#: [id number] Admission: 11/22/16 Attend Phys: Yoni Schreiber MD Discharge: Date of : 32 Date of Service: 11/23/16 1256 Report #: [id number] Mitral Valve E/A Ratio: 0.8 MV Decel. Time: 230.84 ms MV E Max Saul.: 0.83 m/s MV A Saul.: 1.06 m/s MV PHT: 66.94 ms IVRT: 107.27 ms Pulmonary Valve PV Peak Saul.: 0.79 m/s PV Peak Gr.: 2.47 mmHg Pulmonary Vein P Vein S: 51.3 m/s P Vein D: 32.8 m/s Tricuspid Valve TR Peak Saul.: 2.64 m/s RAP Estimate: 5.00 mmHg TR Peak Gr.: 27.95 mmHg RVSP: 33.00 mmHg Left Ventricle The left ventricle is normal size. There is normal LV segmental wall motion. Mild basal septal hypertrophy is present. Left ventricular systolic function is normal. LVEF is 60%. Grade I - abnormal relaxation pattern. Right Ventricle The right ventricle is normal size. The right ventricular systolic function is normal. Atria Left atrium is mildly dilated. The right atrium size is normal. Aortic Valve Aortic valve leaflets are mildly thickened. Mild aortic regurgitation. There is no aortic valvular stenosis. Mitral Valve Mitral valve leaflets are mildly calcified. Trace mitral regurgitation. No evidence of mitral valve stenosis. Tricuspid Valve The tricuspid valve is normal in structure. There is moderate tricuspid regurgitation. The right atrial pressure is estimated at 5 mmHg. There is mild pulmonary hypertension with an estimated PAP of [facility] [address] [place] [address] 2 D/M-MODE ECHOCARDIOGRAM Name: MARAH BUTTS Room #: 437-P [facility] IN ..#: [id number] Admission: 11/22/16 Attend Phys: Yoni Schreiber MD Discharge: Date of : 32 Date of Service: 11/23/16 1256 Report #: [id number] 33mmHg. Pulmonic Valve The pulmonary valve is normal in structure. Mild to moderate pulmonic regurgitation. Great Vessels The aortic root is normal in size. The ascending aorta is normal in size. IVC is normal in size and collapses >50% with inspiration. Pericardium There is no pericardial effusion. <Conclusion> The left ventricle is normal size. LVEF is 60%. Left atrium is mildly dilated. Aortic valve leaflets are mildly thickened. Mild aortic regurgitation. Mitral valve leaflets are mildly calcified. Trace mitral regurgitation. The tricuspid valve is normal in structure. There is moderate tricuspid regurgitation. The right atrial pressure is estimated at 5 mmHg. There is mild pulmonary hypertension with an estimated PAP of 33mmHg. The pulmonary valve is normal in structure. Mild to moderate pulmonic regurgitation. <ELECTRONICALLY SIGNED> By: Harshal Rodríguez MD 11/23/16 1256 1256 1256 Harshal Rodríguez MD /INF
[~2016-11-22 09:52] MED LIST changes: +VITAMIN B-1100 M1 PO
[2016-11-22 14:46] LABS: ABSOLUTE NEUTROPHILS 4.5 thou/uL (1.4-8.2); BASOPHILS 0.6 % (0.0-2.0); EOSINOPHILS 0.9 % (0.0-3.0); HEMATOCRIT 39.6 % (37.0-47.0); HEMOGLOBIN 13.2 gm/dL (12.0-15.0); LYMPHOCYTES 25.3 % (24.0-44.0); MCHC 33.4 g/dL (28.0-37.0); MCV 92.8 fL (80.0-100.0); MONOCYTES 10.3 % (1.0-8.0); PLATELET COUNT 336 thou/uL (150-400); POLYS 62.9 % (36.0-66.0); RBC 4.27 mil/uL (4.20-5.00); RDW 14.4 % (10.5-14.5); WBC 7.1 thou/uL (4.0-11.0)
[2016-11-22 14:47] LABS: MANUAL DIFF NO
[2016-11-22 14:54] LABS: ANION GAP 4 mmol/L (7-16); BUN 20 mg/dL (7-18); CALCIUM 8.5 mg/dL (8.5-10.1); CHLORIDE 104 mmol/L (98-107); CO2 27 mmol/L (21-32); CREATININE 0.6 mg/dL (0.6-1.0); GLUCOSE 106 mg/dL (74-106); POTASSIUM 4.1 mmol/L (3.5-5.1); SODIUM 135 mmol/L (136-145)
[2016-11-22 14:58] LABS: ABG SAMPLE TYPE ARTERIAL; BE(vivo) -1.2 mmol/L (-2 to +3); HCO3 21.6 mmol/L (22.0-26.0); LACTATE 0.84 mmol/L (0.5-2.0); O2(CT) 18.1 mL/dL (15.0-23.0); O2Hb 94.1 % (92.0-98.0); PCO2 30.8 mmHg (35.0-45.0); PO2 71.8 mmHg (80.0-100.0); pH 7.464 (7.360-7.450); sO2 95.5 % (92.0-98.0); tCO2 22.6 mmol/L (24.0-30.0)
[2016-11-22 14:59] LABS: STICK SITE R.BRACHIAL
[2016-11-22 15:01] LABS: ALBUMIN 3.4 g/dL (3.4-5.0); ALKALINE PHOSPHATASE 60 U/L (46-116); SGOT 18 U/L (15-37); SGPT 21 U/L (30-65); TOTAL BILIRUBIN 0.4 mg/dL (<0.1-1.0); TOTAL PROTEIN 6.7 g/dL (6.4-8.2); TROPONIN-I < 0.04 ng/mL (<0.04-0.07)
[2016-11-22 17:20] LABS: URINE BILIRUBIN NEGATIVE (Negative); URINE BLOOD NEGATIVE (Negative); URINE COLOR YELLOW; URINE GLUCOSE-RANDOM* NEGATIVE (Negative); URINE KETONES NEGATIVE (Negative); URINE LEUKOCYTES-REFLEX NEGATIVE (Negative); URINE PROTEIN (DIPSTICK) NEGATIVE (Negative); URINE UROBILINOGEN 0.2 E.U./dl (0.2-1.0)
[2016-11-22 19:35] VITALS: BP 135/65
[2016-11-23 05:28] VITALS: BP 125/60
[2016-11-23 08:00] VITALS: BP 109/69
[2016-11-23 13:26] LABS: NT-PRO BRAIN NAT PEPTIDE 68 pg/mL (<300); TROPONIN-I < 0.04 ng/mL (<0.04-0.07)
[2016-11-23 15:10] LABS: CORTISOL BASELINE 4.8 ug/dL (()); CORTISOL POST 24.4 ug/dL (Not Estab.)
[2016-11-23 16:00] VITALS: BP 144/83
[2016-11-23 20:02] VITALS: BP 132/77
[2016-11-24 04:07] VITALS: BP 142/77
[2016-11-24 16:46] VITALS: BP 142/77
[2016-11-24] MEDS ORDERED: ASPIR 8181 MG PO (16:52)
[2016-11-24] MEDS ORDERED: NORTRIPTYLINE H10 M1 PO (16:53)
== END 2016-11-24 18:00 | disposition home or self-care (01) | DRG 178 ==
LOC: 4S 09:52
PROVIDERS: Internal Medicine; Internal Medicine Cardiovascular Disease
DX: J69.0 Pneumonitis due to inhalation of food and vomit (principal); E27.40 Unspecified adrenocortical insufficiency; I50.30 Unspecified diastolic (congestive) heart failure; E03.9 Hypothyroidism, unspecified; M81.0 Age-related osteoporosis without current pathological fracture; M19.90 Unspecified osteoarthritis, unspecified site; G62.9 Polyneuropathy, unspecified; K21.9 Gastro-esophageal reflux disease without esophagitis; R13.13 Dysphagia, pharyngeal phase; I11.0 Hypertensive heart disease with heart failure; J38.00 Paralysis of vocal cords and larynx, unspecified; J44.9 Chronic obstructive pulmonary disease, unspecified; Z60.2 Problems related to living alone; E78.5 Hyperlipidemia, unspecified; G43.409 Hemiplegic migraine, not intractable, without status migrainosus; Z90.710 Acquired absence of both cervix and uterus; Z79.82 Long term (current) use of aspirin; Z79.899 Other long term (current) drug therapy; Z86.73 Personal history of transient ischemic attack (TIA), and cerebral infarction without residual deficits; Z87.891 Personal history of nicotine dependence; Z88.8 Allergy status to other drugs, medicaments and biological substances; Z88.6 Allergy status to analgesic agent; Z98.49 Cataract extraction status, unspecified eye; Z90.49 Acquired absence of other specified parts of digestive tract; Z82.3 Family history of stroke; Z82.49 Family history of ischemic heart disease and other diseases of the circulatory system
CPT/HCPCS: 10100

== ENCOUNTER → 2017-01-02 | Outpatient (CLI) | payer OTHER ==
[~2017-01-02] MED LIST changes: +ASPIR 8181 MG PO
== END ==
LOC: RAD 08:42
DX: Z12.31 Encounter for screening mammogram for malignant neoplasm of breast (principal)

== ENCOUNTER → 2017-01-04 | Outpatient (CLI) | payer OTHER | LOC: RAD 07:38 → ULTRA 07:38 | DX: R92.8 Other abnormal and inconclusive findings on diagnostic imaging of breast (principal) ==

== ENCOUNTER 2017-02-26 13:16 | Emergency (ER) | payer OTHER ==
[~2017-02-26] VITALS: Ht 160 cm; Wt 54.4 kg
[2017-02-26 14:14] LABS: HEMATOCRIT 44.5 % (37.0-47.0); HEMOGLOBIN 15.1 gm/dL (12.0-15.0); MCH 32.1 pg (26.0-34.0); MCHC 33.8 g/dL (28.0-37.0); MCV 94.9 fL (80.0-100.0); PLATELET COUNT 258 thou/uL (150-400); RBC 4.69 mil/uL (4.20-5.00); WBC 7.3 thou/uL (4.0-11.0)
[2017-02-26 14:15] LABS: MANUAL DIFF YES
[2017-02-26 14:21] LABS: CALCIUM 8.7 mg/dL (8.5-10.1); CREATININE 0.7 mg/dL (0.6-1.0); POTASSIUM 3.6 mmol/L (3.5-5.1)
[2017-02-26 14:31] LABS: ABSOLUTE NEUTROPHILS 6.4 thou/uL (1.4-8.2); PLATELET ESTIMATE NORMAL; TOTAL CELL COUNT 100
[2017-02-26 14:48] LABS: URINE BILIRUBIN NEGATIVE (Negative); URINE BLOOD 2+ (Negative); URINE COLOR YELLOW; URINE GLUCOSE-RANDOM* NEGATIVE (Negative); URINE KETONES NEGATIVE (Negative); URINE LEUKOCYTES-REFLEX 1+ (Negative); URINE PROTEIN (DIPSTICK) NEGATIVE (Negative); URINE UROBILINOGEN 0.2 E.U./dl (0.2-1.0)
[2017-02-26 15:01] LABS: CASTS None Seen /LPF (None Seen); CRYSTALS None Seen /LPF (None Seen); SQUAMOUS None Seen /LPF (0-3); URINE RBC None Seen /HPF (0-2); URINE WBC-REFLEX 6-15 Few /HPF (0-5)
[2017-02-26] MEDS ORDERED: KEFLEX500 MG PO (15:09)
[2017-02-26 15:17] VITALS: BP 121/64
== END 2017-02-26 15:18 | disposition home or self-care (01) ==
LOC: ER 13:16
PROVIDERS: Emergency Medicine
DX: N39.0 Urinary tract infection, site not specified (principal); I10 Essential (primary) hypertension; Z86.73 Personal history of transient ischemic attack (TIA), and cerebral infarction without residual deficits; Z88.5 Allergy status to narcotic agent; Z88.1 Allergy status to other antibiotic agents

== ENCOUNTER 2017-04-17 10:31 | Inpatient (IN) | payer OTHER ==
[~2017-04-17] VITALS: Ht 160 cm; Wt 54.4 kg
[~2017-04-17 10:31] MED LIST changes: +KEFLEX500 MG PO
[2017-04-17 10:32] VITALS: BP 156/77
[2017-04-17 11:10] LABS: HEMATOCRIT 44.8 % (37.0-47.0); HEMOGLOBIN 15.2 gm/dL (12.0-15.0); MCH 32.4 pg (26.0-34.0); MCHC 33.9 g/dL (28.0-37.0); MCV 95.4 fL (80.0-100.0); RBC 4.69 mil/uL (4.20-5.00); RDW 13.8 % (10.5-14.5); WBC 9.7 thou/uL (4.0-11.0)
[2017-04-17 11:14] LABS: CALCIUM 9.2 mg/dL (8.5-10.1); CREATININE 0.6 mg/dL (0.6-1.0); POTASSIUM 4.2 mmol/L (3.5-5.1)
[2017-04-17 11:39] LABS: URINE BILIRUBIN NEGATIVE (Negative); URINE BLOOD 2+ (Negative); URINE COLOR YELLOW; URINE GLUCOSE-RANDOM* NEGATIVE (Negative); URINE KETONES TRACE (Negative); URINE LEUKOCYTES-REFLEX NEGATIVE (Negative); URINE PROTEIN (DIPSTICK) NEGATIVE (Negative); URINE UROBILINOGEN 0.2 E.U./dl (0.2-1.0)
[2017-04-17 11:55] LABS: CASTS None Seen /LPF (None Seen); SQUAMOUS 0-3 Few /LPF (0-3); URINE RBC 3-10 Few /HPF (0-2); URINE WBC-REFLEX 0-5 Rare /HPF (0-5)
[2017-04-17 11:58] LABS: AMORPHOUS PHOSPHATES Many /LPF (None Seen)
[2017-04-17 13:36] VITALS: BP 174/80
[2017-04-17 14:09] VITALS: BP 178/76
[2017-04-17 20:00] VITALS: BP 179/97
[2017-04-18 04:00] VITALS: BP 119/89
[2017-04-18 08:19] VITALS: BP 140/77
[2017-04-18 16:48] VITALS: BP 119/67
[2017-04-18 20:00] VITALS: BP 131/62
[2017-04-18] MEDS ORDERED: BACTRIM DS TAB1 EACH PO (23:22)
[2017-04-18] MEDS ORDERED: TYLENOL EXTRA500 MG PO (23:22)
[2017-04-18] MEDS ORDERED: FLOMAX0.4 MG PO (23:22)
[2017-04-18] MEDS ORDERED: ZOFRAN 4 MG ORAL4 MG DISSOLVE (23:22)
[2017-04-18] MEDS ORDERED: ATIVAN0.5 MG PO (23:22)
[2017-04-18] MEDS ORDERED: UNICOMPLEX M TA1 TA1 PO (23:22)
[2017-04-18] MEDS ORDERED: MIRALAX17 GM PO (23:22)
[2017-04-19 04:14] VITALS: BP 146/57
[2017-04-19 07:53] VITALS: BP 138/51
[2017-04-19 13:06] VITALS: BP 138/51
== END 2017-04-19 13:45 | disposition home or self-care (01) | DRG 552 ==
LOC: ER 10:31 → EROBS 13:14 → 4E 13:14 → ENTRNSPT 04-19 13:31 → EDTRNSPTSTS 04-19 13:32 → 4E 04-19 13:45
PROVIDERS: Emergency Medicine
DX: M47.816 Spondylosis without myelopathy or radiculopathy, lumbar region (principal); N39.0 Urinary tract infection, site not specified; I50.32 Chronic diastolic (congestive) heart failure; E87.1 Hypo-osmolality and hyponatremia; R33.9 Retention of urine, unspecified; I11.0 Hypertensive heart disease with heart failure; K21.9 Gastro-esophageal reflux disease without esophagitis; I25.10 Atherosclerotic heart disease of native coronary artery without angina pectoris; E03.9 Hypothyroidism, unspecified; F32.9 Major depressive disorder, single episode, unspecified; M54.30 Sciatica, unspecified side; J38.01 Paralysis of vocal cords and larynx, unilateral; K59.00 Constipation, unspecified; M81.0 Age-related osteoporosis without current pathological fracture; Z90.49 Acquired absence of other specified parts of digestive tract; Z98.49 Cataract extraction status, unspecified eye; Z90.710 Acquired absence of both cervix and uterus; Z82.49 Family history of ischemic heart disease and other diseases of the circulatory system; Z88.8 Allergy status to other drugs, medicaments and biological substances; Z87.01 Personal history of pneumonia (recurrent); Z86.73 Personal history of transient ischemic attack (TIA), and cerebral infarction without residual deficits; Z79.899 Other long term (current) drug therapy; Z80.9 Family history of malignant neoplasm, unspecified; Z88.5 Allergy status to narcotic agent
CPT/HCPCS: 10084

== ENCOUNTER 2017-07-02 10:42 | Inpatient (IN) | payer OTHER ==
[~2017-07-02] VITALS: Ht 157.5 cm; Wt 53.5 kg
--- NOTE | ~2017-07-02 | HC ---
[facility] [place] [address] CONSULTATION Name: BENJAMÍNMARAH Room #: 420-P [facility] IN M.R.#: [id number] Admission: 07/02/17 Attend Phys: Yoni Schreiber MD Discharge: Date of : 32 Report #: [id number] THIS REPORT FOR: //name// CC: Yoni Schreiber DATE OF SERVICE: 07/03/2017 ATTENDING PHYSICIAN: Yoni Schreiber MD REASON FOR CONSULTATION: Possible diverticulitis. HISTORY OF PRESENT ILLNESS: The patient is an 87-year-old white woman, unwell for several weeks with some abdominal discomfort, rather nonspecific in nature, found on CT scan of abdomen and pelvis to have extensive colonic diverticula with possible diverticulitis. The patient is admitted and treated with Cipro and metronidazole. The patient denies having had fevers, she is anorexic, she is debilitated and appears to be mildly depressed. The patient is telling me her was Dr. Butts and he has and obviously she appears a bit depressed about this issue. PAST MEDICAL HISTORY: Hypertension. Hemiplegic migraines. Previous pelvic fractures-osteoporosis. Depression. Diastolic heart failure. Hysterectomy. Mild coronary artery disease. Hypothyroidism. Polymyalgia rheumatica, on steroids. SOCIAL HISTORY: . 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 The patient has grown children. DRUG ALLERGIES: MORPHINE and AMLODIPINE. MEDICATIONS: She is currently on treatment with ciprofloxacin 400 mg IV 2 times daily and metronidazole 500 mg IV every 8 hours. She is also receiving treatment with cholecalciferol, polyethylene glycol, multivitamins, aspirin, metoprolol, levothyroxine, and tamsulosin. I wonder if she has been on prednisone before since this is on her medication list. REVIEW OF SYSTEMS: Other than abdominal discomfort, the patient has no significant focal type complaints. PHYSICAL EXAMINATION: GENERAL: Elderly debilitated looking woman. VITAL SIGNS: Temperature 97.9, pulse 80, respirations 16, BP 158/98, O2 saturation 95% on room air, height 5 feet 2 inches, and weight 129 pounds. HEENMT: Head normocephalic, atraumatic. Pupils reactive. Mouth, no thrush. NECK: Supple. No thyromegaly or lymphadenopathy. [address] [address] CONSULTATION Name: MARAH BUTTS Room #: [facility] IN M.R.#: [id number] Admission: 07/02/17 Attend Phys: Yoni Schreiber MD Discharge: Date of : 32 Report #: [id number] LUNGS: Clear to auscultation. HEART: S1, S2. No gallop or murmur. BREASTS: Deferred. ABDOMEN: Minimal discomfort in the left lower abdominal quadrant. No palpable masses or megaly. PELVIC: Deferred. RECTAL: Deferred. EXTREMITIES: No clubbing or cyanosis. NEUROLOGIC: Grossly within normal limits. LABORATORY DATA: Sodium 137, potassium 3.3, BUN 14, and creatinine 0.7. Liver enzymes, lipase and amylase normal. Albumin 3.8 g/dL, CRP less than 2 mg/dL. WBC 7800, hemoglobin 15.4 g/dL, and platelets 271,000. ESR 40 mm per hour. Stool negative for C. difficile toxin assay. Urinalysis revealed 1+ ketones, 1+ blood. The microscopic exam revealed heavy mucus, otherwise negative. Blood cultures negative at the time of this dictation. Stool for Giardia and cryptosporidium are pending. The stool is negative for Campylobacter antigen and the Shiga toxin ascites pending. RADIOLOGY EVALUATION: A chest x-ray revealed hiatal hernia and no acute process. CT scan of abdomen and pelvis revealed large hiatal hernia, left basilar pulmonary density-atelectasis, sigmoid diverticula and questionable diverticulitis, large left renal cyst as well as a hepatic cyst and a splenic artery aneurysm. ASSESSMENT: 1. Abdominal discomfort, question etiology, possible diverticulitis, though normal CRP and ESRs may speak against an inflammatory process. 2. Extensive colonic diverticula. 3. Hepatic and renal cyst. 4. Depression-situational. 5. History of migraine headaches and polymyalgia rheumatica. SUGGESTIONS: At present I am not quite convinced that we are dealing with an acute diverticulitis, though there appears to be some suggestions of these by CT scan of abdomen and pelvis, though normal white blood cell count, ESR and CRP speaks against severe infectious disease process. We will discuss situation with Dr. Schreiber and for time being, we will continue coverage with Magali and Tiffany. I suspect the patient will be at home for [place] like she wishes to. Dr. Yoni Schreiber, thank you for requesting my suggestions in the care of your patient. <ELECTRONICALLY SIGNED> By: Jesu Redd MD 07/03/17 1431 1057 1342 Jesu Redd MD /nt
[~2017-07-02 10:42] MED LIST changes: +ATIVAN0.5 MG PO; +BACTRIM DS TAB1 EACH PO; +CIPRO500 MG PO; +FLAGYL 250 MG250 MG PO; +FLORANEX GRANU1 EACH PO; +MELATONIN1 MG PO; +TYLENOL EXTRA500 MG PO; +ZOFRAN 4 MG ORAL4 MG DISSOLVE
[2017-07-02 14:00] VITALS: BP 158/98
[2017-07-02 16:56] LABS: ABSOLUTE NEUTROPHILS 4.7 thou/uL (1.4-8.2); BASOPHILS 0.5 % (0.0-2.0); EOSINOPHILS 1.4 % (0.0-3.0); HEMATOCRIT 44.7 % (37.0-47.0); HEMOGLOBIN 15.4 gm/dL (12.0-15.0); MCH 32.4 pg (26.0-34.0); MCHC 34.5 g/dL (28.0-37.0); MONOCYTES 9.1 % (1.0-8.0); PLATELET COUNT 271 thou/uL (150-400); RBC 4.76 mil/uL (4.20-5.00); RDW 12.8 % (10.5-14.5); WBC 7.8 thou/uL (4.0-11.0)
[2017-07-02 16:57] LABS: MANUAL DIFF NO
[2017-07-02 17:16] LABS: ALBUMIN 3.8 g/dL (3.4-5.0); CALCIUM 8.9 mg/dL (8.5-10.1); CREATININE 0.7 mg/dL (0.6-1.0); DIRECT BILIRUBIN 0.1 mg/dL (<0.1-0.3); POTASSIUM 3.3 mmol/L (3.5-5.1); TOTAL BILIRUBIN 0.5 mg/dL (<0.1-1.0); TOTAL PROTEIN 7.3 g/dL (6.4-8.2)
[2017-07-02 19:35] LABS: URINE BILIRUBIN NEGATIVE (Negative); URINE BLOOD 1+ (Negative); URINE COLOR YELLOW; URINE GLUCOSE-RANDOM* NEGATIVE (Negative); URINE KETONES 1+ (Negative); URINE LEUKOCYTES-REFLEX NEGATIVE (Negative); URINE PROTEIN (DIPSTICK) NEGATIVE (Negative); URINE SPECIFIC GRAVITY 1.015 (1.005-1.035); URINE UROBILINOGEN 0.2 E.U./dl (0.2-1.0)
[2017-07-02 19:45] LABS: CASTS None Seen /LPF (None Seen); CRYSTALS None Seen /LPF (None Seen); SQUAMOUS 0-3 Few /LPF (0-3); URINE RBC 0-2 Rare /HPF (0-2); URINE WBC-REFLEX 0-5 Rare /HPF (0-5)
[2017-07-02 20:33] VITALS: BP 154/82
[2017-07-03 04:09] VITALS: BP 113/68
[2017-07-03 08:00] VITALS: BP 120/76
[2017-07-03 16:00] VITALS: BP 147/70
[2017-07-03 20:00] VITALS: BP 123/64
[2017-07-04 03:59] VITALS: BP 150/70
[2017-07-04 06:07] LABS: HEMATOCRIT 38.2 % (37.0-47.0); MCH 32.5 pg (26.0-34.0); MCHC 34.4 g/dL (28.0-37.0); MCV 94.4 fL (80.0-100.0); RBC 4.05 mil/uL (4.20-5.00); RDW 12.7 % (10.5-14.5); WBC 4.9 thou/uL (4.0-11.0)
[2017-07-04 06:09] LABS: HEMOGLOBIN 13.2 gm/dL (12.0-15.0)
[2017-07-04 06:15] LABS: CALCIUM 8.5 mg/dL (8.5-10.1); CREATININE 0.6 mg/dL (0.6-1.0); POTASSIUM 3.6 mmol/L (3.5-5.1)
[2017-07-04 08:10] VITALS: BP 149/88
[2017-07-04 15:20] VITALS: BP 138/78
[2017-07-04 19:46] VITALS: BP 140/78
[2017-07-05 03:34] VITALS: BP 126/80
[2017-07-05 07:40] VITALS: BP 149/87
[2017-07-05 16:10] VITALS: BP 110/75
[2017-07-05 19:27] VITALS: BP 123/63
[2017-07-06 03:26] VITALS: BP 156/76
[2017-07-06 07:45] VITALS: BP 142/83
[2017-07-06] MEDS ORDERED: ACETAMINOPHEN325 M1 PO (14:12)
[2017-07-06] MEDS ORDERED: ZOFRAN 4 MG ORAL4 MG DISSOLVE (14:13)
[2017-07-06 15:17] VITALS: BP 142/83
== END 2017-07-06 15:50 | disposition home or self-care (01) | DRG 392 ==
LOC: 4E 10:42 → ENTRNSPT 07-06 15:45 → 4E 07-06 15:50
PROVIDERS: Internal Medicine
DX: K57.92 Diverticulitis of intestine, part unspecified, without perforation or abscess without bleeding (principal); E44.0 Moderate protein-calorie malnutrition; I50.32 Chronic diastolic (congestive) heart failure; K57.30 Diverticulosis of large intestine without perforation or abscess without bleeding; G44.89 Other headache syndrome; M81.0 Age-related osteoporosis without current pathological fracture; F32.9 Major depressive disorder, single episode, unspecified; I25.10 Atherosclerotic heart disease of native coronary artery without angina pectoris; E03.9 Hypothyroidism, unspecified; N28.1 Cyst of kidney, acquired; K76.89 Other specified diseases of liver; E86.1 Hypovolemia; E86.0 Dehydration; I11.0 Hypertensive heart disease with heart failure; R33.9 Retention of urine, unspecified; E87.6 Hypokalemia; J38.01 Paralysis of vocal cords and larynx, unilateral; G43.409 Hemiplegic migraine, not intractable, without status migrainosus; Z98.49 Cataract extraction status, unspecified eye; Z90.49 Acquired absence of other specified parts of digestive tract; Z90.710 Acquired absence of both cervix and uterus; Z88.6 Allergy status to analgesic agent; Z88.8 Allergy status to other drugs, medicaments and biological substances; Z86.73 Personal history of transient ischemic attack (TIA), and cerebral infarction without residual deficits; Z68.21 Body mass index [BMI] 21.0-21.9, adult; Z28.21 Immunization not carried out because of patient refusal
CPT/HCPCS: 10783

== ENCOUNTER → 2017-09-07 | Outpatient (CLI) | payer OTHER ==
[~2017-09-07] MED LIST changes: +DURAGESIC1 EACH TRANSDERM; +ESTRACE1 TUBE VAG; +FENTANYL 0.50 MCG/ML IV PUSH; +FLORINEF ACETA0.1 MG PO; +HYDROCODON-ACE1 EAC7 PO; +K-DUR 20 MEQ T20 MEQ; +K-DUR 20 MEQ T20 MEQ PO; +KEFLEX500 M1 PO; +LIDOPATCH1 EACH TRANSDERM; +METOPROLOL SUCC50 MG PO; +MOBIC7.5 M1 PO; +ONDANSETRON HCL4 M2 PO; +PREDNISONE 5 MG5 M1; +PREDNISONE 5 MG5 M1 PO; +SENNA-TIME S T1 EACH PO; +TRAMADOL 50 MG50 MG PO; +VERAPAMIL HCL180 M4 PO; +[UNRECOGNIZED DRUG - OTHER]
== END ==
LOC: RAD 00:41
DX: N63.20 Unspecified lump in the left breast, unspecified quadrant (principal); R92.8 Other abnormal and inconclusive findings on diagnostic imaging of breast

== ENCOUNTER → 2017-09-12 | Outpatient (CLI) | payer OTHER | LOC: CAT 11:52 | DX: K57.30 Diverticulosis of large intestine without perforation or abscess without bleeding (principal); K44.9 Diaphragmatic hernia without obstruction or gangrene; N28.1 Cyst of kidney, acquired; K76.89 Other specified diseases of liver; I72.8 Aneurysm of other specified arteries ==

== ENCOUNTER 2017-09-21 12:09 | Inpatient (IN) | payer OTHER ==
[~2017-09-21] VITALS: Ht 160 cm; Wt 50.8 kg
--- NOTE | ~2017-09-21 | D ---
[facility] [place] [address] DISCHARGE SUMMARY Name: KATELYN BUTTS Room #: 403-P [facility] IN M.R.#: [id number] Admission: 09/21/17 Attend Phys: Yoni Schreiber MD Discharge: 09/25/17 Date of : 32 Report #: [id number] THIS REPORT FOR: //name// CC: Yoni Schreiber DATE OF SERVICE: 09/25/2017 HOSPITAL COURSE: The patient is an 87-year-old white female who presented with persistent left lower quadrant abdominal pain despite oral antibiotic treatment for diverticulitis. Antibiotics were continued at time of admission initially, however, CT scan of the abdomen and pelvis failed to reveal presence of diverticulitis or any other cause of her problems. The patient did have significant constipation issues in the last several weeks and is being treated with MiraLax for that. Urinalysis was benign, although there was a hint of microhematuria on the dipstick portion of the test. The patient was started on intravaginal hormone replacement therapy with esterase daily for a period of 14 days. Within 72 hours, she began experiencing significant pain relief. Renal ultrasound was obtained to see if there was any evidence of kidney stones or obstruction -- the study was essentially benign with presence of mild cystic disease noted. At the time of discharge, the patient is being sent home on the following regimen, Tylenol on a p.r.n. basis. She will take a probiotic daily for the next month. Chewable aspirin 81 mg by mouth daily, vitamin D 2000 units by mouth daily, estradiol cream 0.01% half applicator full nightly at bedtime for a total of 14 days and then see doctor in followup. Flomax 0.4 mg b.i.d. for urinary retention, gabapentin 300 mg by mouth nightly, melatonin 3 mg by mouth nightly for insomnia, metoprolol tartrate 50 mg by mouth daily, multivitamin with iron 1 tablet by mouth daily, Synthroid 75 mcg by mouth daily. I also instructed the patient on the use of fiber laxatives, as apparently she has significant problems with watery stools when she uses the MiraLax on a consistent basis. DISCHARGE DIAGNOSES: 1. Intractable pelvic pain, likely multifactorial. 2. Obstipation. 3. Atrophic vaginitis. 4. Hypertension. 5. Hypothyroidism. 6. Chronic insomnia. 7. Hemiplegic migraine headaches. [address] [address] DISCHARGE SUMMARY Name: KATELYN BUTTS Room #: 403-P [facility] IN M.R.#: [id number] Admission: 09/21/17 Attend Phys: Yoni Schreiber MD Discharge: 09/25/17 Date of : 32 Report #: [id number] 8. Diverticulosis. 9. Hepatic cyst. 10. Renal cyst. The patient will see Dr. Schreiber in followup 2 weeks after discharge. <ELECTRONICALLY SIGNED> By: Yoni Schreiber MD 10/02/17 2249 0959 1049 Yoni Schreiber MD /cristy
--- NOTE | ~2017-09-21 | H ---
[facility] [place] [address] HISTORY AND PHYSICAL Name: KATELYN BUTTS Room #: 403-P ADM IN M.R.#: [id number] Admission: 09/21/17 Attend Phys: Yoni Schreiber MD Discharge: Date of : 32 Report #: [id number] THIS REPORT FOR: //name// CC: Yoni Schreiber DATE OF SERVICE: 09/21/2017 CHIEF COMPLAINT: Pelvic pain. HISTORY OF PRESENT ILLNESS: The patient is an 87-year-old white female who for the last several weeks has been having increasing episodes of intermittent pelvic pain. It has grown much more frequent and much more severe in the last few days prior to this admission. She did have a CT scan of the abdomen and pelvis performed at the end of August, little under 2 weeks ago and is known to have diverticulosis, but the scan did not show any acute diverticulitis, nor did it show any other acute changes or findings from a June study. Nonetheless, the pain has persisted. The patient was started on ciprofloxacin and metronidazole. The latter caused her significant problems with dizziness and dysgeusia and she held it for a couple of days. She was variably feeling a little bit better, but still not much and her appetite has been off as well. I convinced her to resume the metronidazole at half a tablet twice a day (that is 250 mg p.o. b.i.d.). She tolerated this better, but began feeling significantly worse throughout the last couple of days. She called this morning with increasing severity of pain and inability to go on a planned trip. I suggested to her that she come to the hospital for immediate admission and further evaluation of her symptoms. She did not get admitted to the Emergency Room. PAST MEDICAL HISTORY: Extensive and includes diverticulitis and acute on chronic urinary retention, chronic back pain, history of pelvic fracture in the past. She has had community-acquired pneumonia in the past. 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 She has hypothyroidism, history of migraine headaches, sciatica. 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 She has had urinary tract infections in the past. Osteoporosis and osteoarthritis, multiple sites. ALLERGIES: She is allergic to AMLODIPINE and MORPHINE. SOCIAL HISTORY: She is in the last 3-[address] Jose Butts. She has 4 grown children and number of grandchildren. She does not smoke or drink and has no history of those vices previously. FAMILY HISTORY: Significant for longevity. I believe she had a brother who had a brain tumor. REVIEW OF SYSTEMS: The patient reports that the need to have a bowel movement [facility] [address] [place] [address] HISTORY AND PHYSICAL Name: LOLI BUTTSRitchie CRYSTAL Room #: 403-P [facility] IN M.R.#: [id number] Admission: 09/21/17 Attend Phys: Yoni Schreiber MD Discharge: Date of : 32 Report #: [id number] often is associated with increased pelvic pain, but actually having passed a bowel movement is not associated with any improvement in her symptoms. She has not seen any blood or melena in her stools. No vomiting, but her appetite has been off. No shortness of breath or chest pain. No recent change in her chronic migraines. No new back pain. No recent falls or trauma. She does have some problems with increased urinary frequency, which she noticed every half hour or so the night before last, but not last night. PHYSICAL EXAMINATION: VITAL SIGNS: Show a temperature of 97.4 on arrival with pulse of 75 per minute, respirations are 15 per minute, blood pressure of 140/80 in the left arm and a room air oxygen saturation of 99%. Her last recorded height and weight was from June of 2017 measured at 5 feet 2 inches and a weight of 118 pounds. GENERAL: The patient is a pleasant, fairly thin elderly white female with minimal distress at the moment of exam. HEENT: The extraocular muscles are intact. The oropharynx is slightly dry and pink without lesions or exudates. NECK: Without adenopathy or thyromegaly or mass. No bruits are heard on auscultation neither. Her range of motion of the neck and back is good. LUNGS: Clear to auscultation bilaterally. CARDIOVASCULAR: Reveals a regular rhythm without significant murmur, gallop or rub. ABDOMEN: Soft in the upper quadrants and markedly tender in the lower quadrants, especially suprapubic area. The patient did not have peritoneal signs and a negative shake test today. EXTREMITIES: There is no cyanosis or clubbing or significant peripheral edema. Goose neck deformity is noted with the arthritis, degenerative changes in her hands. MENTAL STATUS: The patient is alert. She is fully oriented, no hallucinations or delusions. She has a full affect, but tends to be a bit downcast today. Neurologically, the cranial nerves 2-12 are intact. Cranial cerebellar exam shows no Babinski sign and no Romberg's sign. The patient has no sensory or motor deficits noted on exam today. Deep tendon reflexes are 2/4 in both biceps and both patellae. At the time of admission, the CBC shows white blood cell count of 6300 with a fairly normal differential, hemoglobin of 13.5, hematocrit 39.8, normal red blood cell indices and platelet count of 290,000. Her comprehensive metabolic panel shows sodium of 138, potassium 4.0, chloride 105, bicarbonate of 26, BUN of 23, creatinine of 0.7, the anion gap is 7, all within normal limits with the exception of a slightly elevated BUN. The glucose is 85. The liver function tests are fairly normal with an AST of 21 and ALT of 23, total bilirubin 0.4 and alkaline phosphatase is 52. Calcium was 8.5 with an albumin slightly low at 3.2 and total protein of 6.6. The estimated glomerular filtration rate is 80. ASSESSMENT AND PLAN: [facility] [employer] [place] [address] HISTORY AND PHYSICAL Name: KATELYN BUTTS Room #: 403-P [facility] IN M.R.#: [id number] Admission: 09/21/17 Attend Phys: Yoni Schreiber MD Discharge: Date of : 32 Report #: [id number] 1. Pelvic pain, intermittent and severe of uncertain etiology. I would bet that the most likely cause is urinary tract infection, possibly pyelonephritis, although she minimizes her urinary symptoms at this time. I would have expected the ciprofloxacin of the 2 antibiotics she was taken to be quite helpful with us, but we will await urinalysis and culture results. We will get a KUB with multiple views to assess for nephrolithiasis versus previously undiscovered pelvic fracture. An attempt to perform bladder scan at bedside was unsuccessful because of malfunction of the machine. Straight cath I am told as I dictate this note was 160 mL and alone is insufficient for being the cause. 2. Hypertension. We will follow. Continue current medications, see list below. 3. Hypothyroidism. Continue current medications. 4. History of chronic urinary retention, we will continue tamsulosin. 5. History of migraine headaches and insomnia. We will continue melatonin and continue monitoring. I have also ordered stool studies for investigation of any signs of Clostridium difficile or other infection. Please note, I did perform a rectal exam on the patient today. Her rectal tone is normal. There are no palpable masses. Stool has been ordered for occult blood and Giardia and ova and parasite testing, but the overall rectal exam was quite benign. MEDICATIONS: Metoprolol succinate 50 mg by mouth daily, gabapentin 300 mg by mouth nightly, levothyroxine 75 mcg by mouth daily, aspirin 81 mg by mouth daily, tamsulosin 0.4 mg by mouth b.i.d., multivitamin daily, melatonin 3 mg by mouth nightly, ciprofloxacin 500 mg by mouth b.i.d. and metronidazole 250 mg by mouth b.i.d. for the last approximately 10 days, probiotic tablets daily, Tylenol on a p.r.n. basis. <ELECTRONICALLY SIGNED> By: Yoni Schreiber MD 09/21/17 1755 1406 1442 Yoni Schreiber MD /nt
[~2017-09-21 12:09] MED LIST changes: -DURAGESIC1 EACH TRANSDERM; -ESTRACE1 TUBE VAG; -FENTANYL 0.50 MCG/ML IV PUSH; -FLORINEF ACETA0.1 MG PO; -HYDROCODON-ACE1 EAC7 PO; -K-DUR 20 MEQ T20 MEQ; -K-DUR 20 MEQ T20 MEQ PO; -KEFLEX500 M1 PO; -LIDOPATCH1 EACH TRANSDERM; -METOPROLOL SUCC50 MG PO; -MOBIC7.5 M1 PO; -ONDANSETRON HCL4 M2 PO; -PREDNISONE 5 MG5 M1; -PREDNISONE 5 MG5 M1 PO; -SENNA-TIME S T1 EACH PO; -TRAMADOL 50 MG50 MG PO; -VERAPAMIL HCL180 M4 PO; -[UNRECOGNIZED DRUG - OTHER]
[2017-09-21 12:31] VITALS: BP 140/80
[2017-09-21 13:06] LABS: BASOPHILS 0.6 % (0.0-2.0); EOSINOPHILS 1.2 % (0.0-3.0); HEMATOCRIT 39.8 % (37.0-47.0); HEMOGLOBIN 13.5 gm/dL (12.0-15.0); LYMPHOCYTES 25.3 % (24.0-44.0); MCH 31.9 pg (26.0-34.0); MCHC 33.9 g/dL (28.0-37.0); MCV 94.2 fL (80.0-100.0); MONOCYTES 9.8 % (1.0-8.0); PLATELET COUNT 290 thou/uL (150-400); POLYS 63.1 % (36.0-66.0); RBC 4.22 mil/uL (4.20-5.00); RDW 12.8 % (10.5-14.5); WBC 6.3 thou/uL (4.0-11.0)
[2017-09-21 13:22] LABS: ALBUMIN 3.2 g/dL (3.4-5.0); CALCIUM 8.5 mg/dL (8.5-10.1); CREATININE 0.7 mg/dL (0.6-1.0); TOTAL BILIRUBIN 0.4 mg/dL (<0.1-1.0); TOTAL PROTEIN 6.6 g/dL (6.4-8.2)
[2017-09-21 14:25] LABS: URINE BILIRUBIN NEGATIVE (Negative); URINE BLOOD TRACE (Negative); URINE CLARITY CLEAR; URINE COLOR AMBER; URINE GLUCOSE-RANDOM* NEGATIVE (Negative); URINE KETONES NEGATIVE (Negative); URINE LEUKOCYTES-REFLEX NEGATIVE (Negative); URINE NITRITE-REFLEX NEGATIVE (Negative); URINE PROTEIN (DIPSTICK) NEGATIVE (Negative); URINE SPECIFIC GRAVITY 1.025 (1.005-1.035); URINE UROBILINOGEN 0.2 E.U./dl (0.2-1.0)
[2017-09-21 20:09] VITALS: BP 142/69
[2017-09-22 04:00] VITALS: BP 163/82
[2017-09-22 08:39] VITALS: BP 174/77
[2017-09-22 16:25] VITALS: BP 144/87
[2017-09-22 20:00] VITALS: BP 180/88
[2017-09-23 04:00] VITALS: BP 126/77
[2017-09-23 07:36] VITALS: BP 147/78
[2017-09-23 17:29] VITALS: BP 149/80
[2017-09-23 19:15] VITALS: BP 161/80
[2017-09-24 04:00] VITALS: BP 124/74
[2017-09-24 04:29] LABS: HEMATOCRIT 38.2 % (37.0-47.0); HEMOGLOBIN 13.2 gm/dL (12.0-15.0); MCH 32.2 pg (26.0-34.0); MCHC 34.5 g/dL (28.0-37.0); MCV 93.4 fL (80.0-100.0); RBC 4.09 mil/uL (4.20-5.00); RDW 12.8 % (10.5-14.5); WBC 6.2 thou/uL (4.0-11.0)
[2017-09-24 04:43] LABS: CALCIUM 8.7 mg/dL (8.5-10.1); CREATININE 0.6 mg/dL (0.6-1.0); POTASSIUM 3.9 mmol/L (3.5-5.1)
[2017-09-24 08:50] VITALS: BP 115/67
[2017-09-24 18:02] VITALS: BP 143/89
[2017-09-24 20:17] VITALS: BP 143/80
[2017-09-25 04:00] VITALS: BP 116/76
[2017-09-25 07:19] VITALS: BP 119/72
[2017-09-25] MEDS ORDERED: FLORANEX GRANU1 EACH PO (09:43)
[2017-09-25] MEDS ORDERED: FENTANYL 0.50 MCG/ML IV PUSH (09:43)
[2017-09-25] MEDS ORDERED: ESTRACE1 TUBE VAG (09:46)
[2017-09-25 10:09] VITALS: BP 119/72
[2018-02-24] MEDS ORDERED: KEFLEX500 M1 PO (09:56)
== END 2017-09-25 15:33 | disposition home or self-care (01) | DRG 392 ==
LOC: 4N 12:09
PROVIDERS: Internal Medicine
DX: K57.30 Diverticulosis of large intestine without perforation or abscess without bleeding (principal); N95.2 Postmenopausal atrophic vaginitis; K59.00 Constipation, unspecified; I10 Essential (primary) hypertension; E03.9 Hypothyroidism, unspecified; F51.04 Psychophysiologic insomnia; M54.9 Dorsalgia, unspecified; E86.9 Volume depletion, unspecified; G43.409 Hemiplegic migraine, not intractable, without status migrainosus; K76.89 Other specified diseases of liver; G89.29 Other chronic pain; N28.1 Cyst of kidney, acquired; M19.90 Unspecified osteoarthritis, unspecified site; M81.0 Age-related osteoporosis without current pathological fracture; Z88.6 Allergy status to analgesic agent; Z88.8 Allergy status to other drugs, medicaments and biological substances; Z86.73 Personal history of transient ischemic attack (TIA), and cerebral infarction without residual deficits; Z87.311 Personal history of (healed) other pathological fracture; Z79.82 Long term (current) use of aspirin; Z79.899 Other long term (current) drug therapy
CPT/HCPCS: 10790

== ENCOUNTER 2017-10-09 13:09 | Inpatient (IN) | payer OTHER ==
[~2017-10-09] VITALS: Ht 160 cm; Wt 52.6 kg
--- NOTE | ~2017-10-09 | D ---
[facility] [place] [address] DISCHARGE SUMMARY Name: KATELYN BUTTS Room #: 405-P ADM IN M.R.#: [id number] Admission: 10/09/17 Attend Phys: Yoni Schreiber MD Discharge: Date of : 32 Report #: [id number] THIS REPORT FOR: //name// CC: KIMBERLEE Schreiber DATE OF SERVICE: 10/11/2017 HOSPITAL COURSE: The patient was admitted after a fall 4 days prior to this admission, which occurred at the street curb outside of a restaurant she was about to enter. She fell on her back and side and hit her head on the pavement. She was having difficulty with severe back pain in her lower back and difficulty with ambulation and pain control. She was admitted for further evaluation and treatment. On evaluation in the Emergency Room, she had a CT scan of the lumbosacral spine, which showed a new L3 compression fracture as well as a suspicion for slight L4 endplate deformity. she underwent interventional radiology evaluation and L3 kyphoplasty, successfully. Her pain was much improved. She had a pelvic x-ray which was also done, which showed evidence of prior old left pubic ramus small avulsion-type fracture, but no acute changes. At the time of discharge, the patient is being sent home on the following medication regimen: Metoprolol tartrate 50 mg daily, gabapentin 300 mg by mouth nightly, levothyroxine 0.075 mg daily, aspirin 81 mg by mouth daily, tamsulosin 0.4 mg by mouth every 12 hours, multivitamin by mouth daily, melatonin 3 mg by mouth nightly, vitamin D3 at 2000 units by mouth daily, Tylenol on a p.r.n. basis, MiraLax 17 grams daily in a glass of water, Estrace vaginal cream daily for 2 weeks and repeat as needed for treatment of acute bouts of severe pelvic pain and prednisone 5 mg tablets 2 every morning and 1 every noon for treatment of renal insufficiency and polymyalgia rheumatica. She will also be taking hydrocodone 5/325 one-half of the tablet by mouth every 4 hours as needed for pain. She was given a prescription of 30 tablets without refills and she will be taking fludrocortisone 0.1 mg by mouth every morning. DISCHARGE DIAGNOSES: As follows: 1. Intractable back pain due to L3 compression fracture. 2. L3 compression fracture. 3. Recurrent falls. 4. Osteoporosis. 5. Adrenal insufficiency. 6. Polymyalgia rheumatica. 7. Chronic dyspnea. 8. Diastolic congestive heart failure. 9. Orthostatic hypotension. 10. Hypothyroidism. [address] [address] DISCHARGE SUMMARY Name: KATELYN BUTTS Room #: 405-P [facility] IN M.R.#: [id number] Admission: 10/09/17 Attend Phys: Yoni Schreiber MD Discharge: Date of : 32 Report #: [id number] 11. Constipation. 12. History of vitamin D deficiency. 13. History of migraine headaches. The patient has a followup appointment with Dr. Kimberlee Todd at the [facility], Interventional Radiology followup. If her pain persists or gets worse, consideration will be given to proceeding with an MRI scan to further elucidate her pain issues. <ELECTRONICALLY SIGNED> By: Yoni Schreiber MD 10/11/17 1245 1129 1214 Yoni Schreiber MD /nt
--- NOTE | ~2017-10-09 | EKG ---
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 : 1930 Requested By: Ehco Montes De Oca Order Number: [id number] MD: Garth Redd Measurements Intervals [place] Rate: 53 P: 53 RI: 201 QRS: -10 QRSD: 107 T: 44 QT: 531 QTc: 499 Interpretive Statements Sinus rhythm Borderline ST elevation, lateral leads Compared to ECG 11/23/2016 13:14:43 ST (T wave) deviation now present Atrial abnormality no longer present Myocardial infarct finding no longer present Electronically Signed On 10-10-2017 7:23:23 CDT by Garth Redd [email or web address] <ELECTRONICALLY SIGNED> By: Garth Redd MD 10/10/17 0723 1633 1633 Garth Redd MD /EPI
--- NOTE | ~2017-10-09 | H ---
[facility] [place] [address] HISTORY AND PHYSICAL Name: KATELYN BUTTS Room #: 405-P ADM IN M.R.#: [id number] Admission: 10/09/17 Attend Phys: Yoni Schreiber MD Discharge: Date of : 32 Report #: [id number] THIS REPORT FOR: //name// CC: Yoni Schreiber DATE OF SERVICE: 10/09/2017 CHIEF COMPLAINT: "I fell." HISTORY OF PRESENT ILLNESS: The patient is an 87-year-old white female who was referred to the Emergency Room after calling my office to report severe back pain after a fall that had occurred 4 days previously. Apparently, she was entering a restaurant and fell on the curb outside of it and struck her back and head. Since the fall her only persistent issue has been pain in her lower back, especially with ambulation. She is having difficulty even sleeping because the pain has been so severe. She also reports 3 loose bowel movements today, and no other significant problems lately. PAST MEDICAL HISTORY: Very extensive and includes hemiplegic migraines, hypertension, diastolic congestive heart failure, chronic shortness of breath, adrenal insufficiency, osteoporosis, depression, prior hysterectomy, history of hypothyroidism, gastroesophageal reflux disease, mild coronary artery disease, polymyalgia rheumatica, prior foot surgeries, osteoarthritis at multiple sites. She had a pelvic fracture from a fall last year, suspect that the fall was actually over a year ago. MEDICATIONS: On admission include levothyroxine, tamsulosin, Florinef and prednisone, multivitamins, acetaminophen, aspirin daily, vitamin D daily, estradiol vaginal cream for treatment of chronic pelvic pain on a 2-week course intermittently and MiraLax 17 grams daily. She also takes metoprolol 50 mg daily, melatonin 3 mg nightly as needed for insomnia, gabapentin 300 mg nightly. ALLERGIES: SHE IS ALLERGIC TO AMLODIPINE AND MORPHINE. SOCIAL HISTORY: She lives alone. She is . She has, I believe, 4 grown children and multiple grandchildren. She is a nonsmoker, nondrinker, has no vices and lives at [facility] in an independent home. FAMILY HISTORY: Significant for brain tumor in a sibling and longevity in others and dementia. REVIEW OF SYSTEMS: Her headaches have not been particularly problematic recently. She was recently started on prednisone and Florinef for adrenal insufficiency and was feeling much better in that regard. She reports that she feels like this fall that she had outside the restaurant was her own fault for not paying attention and is very upset with herself. Extensive systems review [address] [address] HISTORY AND PHYSICAL Name: KATELYN BUTTS Room #: 405-P [facility] IN ..#: [id number] Admission: 10/09/17 Attend Phys: Yoni Schreiber MD Discharge: Date of : 32 Report #: [id number] was otherwise negative. PHYSICAL EXAMINATION: VITAL SIGNS: In the Emergency Room, the patient's vital signs showed temperature 36.7 degrees Celsius, pulse 64, respirations of 16, blood pressure 151/84 and a pulse oximetry of 99% on room air with a reported weight of 116 pounds. GENERAL: This is a peppery, warm-hearted elderly white female who is "disgusted" with herself. HEENT: Extraocular muscles are intact. Oropharynx is moist and pink. No lesions, no exudates. NECK: Without adenopathy or thyromegaly or mass. LUNGS: Clear bilaterally. CARDIOVASCULAR: Reveals a regular rhythm with slight tachycardia. ABDOMEN: Soft. Bowel sounds are present, but diminished. No visceromegaly. No masses. EXTREMITIES: Without cyanosis, clubbing or edema. Examination of the back reveals tenderness at L3 and L4 and also in the sacrum and sacroiliac joints bilaterally. No bruises or color change or change in temperature of the skin or other skin integrity issues noted. NEUROLOGIC: Otherwise, fairly normal including cranial nerves, cerebellar, deep tendon reflexes, sensory and motor exams. LABORATORY DATA: Labs done in the Emergency Room, I believe, showed a fairly normal CBC and chemistry. She had a CT scan of the L-spine done in the Emergency Room, but no other radiography that revealed acute or subacute L3 vertebral compression deformity and possibly a subtle fracture involving the anterior superior endplate of L4, and other than that only advanced lumbar spondylosis and scoliosis. ASSESSMENT AND PLAN: 1. Intractable back pain after a fall -- the presence of at least one lumbar compression fracture, coupled with her relative intolerance of narcotics in the past and thus her increased risk for falling prompts me to strongly recommend evaluation for kyphoplasty in this patient before she is discharged. We will also ask for PT and OT evaluations and if they are suggestive of the need for further therapies, I could discuss this with the patient, her having this at [facility] or as an outpatient in her home. 2. Renal insufficiency with orthostatic hypotension. She is feeling better with her medications and will continue those. 3. Diastolic congestive heart failure. Seems to be fairly well compensated at this time. 4. Gastroesophageal reflux disease. This appears to be stable as well. [facility] [address] [facility] [place] [address] HISTORY AND PHYSICAL Name: KATELYN BUTTS Room #: 405-P ADM IN .R.#: [id number] Admission: 10/09/17 Attend Phys: Yoni Schreiber MD Discharge: Date of : 32 Report #: [id number] 5. Hypothyroidism. We will continue current medication. 6. Multiple other medical problems as outlined above. <ELECTRONICALLY SIGNED> By: Yoni Schreiber MD 10/10/17 1507 [id number] Yoni Schreiber MD /nt
[~2017-10-09 13:09] MED LIST changes: +ESTRACE1 TUBE VAG; +FENTANYL 0.50 MCG/ML IV PUSH
[2017-10-09 13:13] VITALS: BP 151/84
[2017-10-09] MEDS ORDERED: MIRALAX17 GM PO (13:20)
[2017-10-09] MEDS ORDERED: PREDNISONE 5 MG5 M1 (13:21)
[2017-10-09] MEDS ORDERED: [UNRECOGNIZED DRUG - OTHER] (13:22)
[2017-10-09 15:45] VITALS: BP 151/84
[2017-10-09 16:30] VITALS: BP 169/86
[2017-10-09 16:49] VITALS: BP 161/81
[2017-10-09 17:51] LABS: ABSOLUTE NEUTROPHILS 8.7 thou/uL (1.4-8.2); BASOPHILS 0.4 % (0.0-2.0); HEMATOCRIT 42.4 % (37.0-47.0); HEMOGLOBIN 14.3 gm/dL (12.0-15.0); LYMPHOCYTES 9.3 % (24.0-44.0); MCH 31.6 pg (26.0-34.0); MCHC 33.7 g/dL (28.0-37.0); MCV 93.8 fL (80.0-100.0); MONOCYTES 2.4 % (1.0-8.0); PLATELET COUNT 282 thou/uL (150-400); POLYS 87.9 % (36.0-66.0); RBC 4.52 mil/uL (4.20-5.00); RDW 13.2 % (10.5-14.5); WBC 9.9 thou/uL (4.0-11.0)
[2017-10-09 18:17] LABS: CALCIUM 8.7 mg/dL (8.5-10.1); CREATININE 0.7 mg/dL (0.6-1.0); POTASSIUM 3.4 mmol/L (3.5-5.1)
[2017-10-09 20:26] VITALS: BP 145/60
[2017-10-10 02:35] LABS: URINE BILIRUBIN NEGATIVE (Negative); URINE BLOOD TRACE (Negative); URINE CLARITY CLEAR; URINE COLOR YELLOW; URINE GLUCOSE-RANDOM* NEGATIVE (Negative); URINE KETONES NEGATIVE (Negative); URINE LEUKOCYTES-REFLEX NEGATIVE (Negative); URINE NITRITE-REFLEX NEGATIVE (Negative); URINE PROTEIN (DIPSTICK) NEGATIVE (Negative); URINE UROBILINOGEN 0.2 E.U./dl (0.2-1.0)
[2017-10-10 04:00] VITALS: BP 157/71
[2017-10-10 04:21] LABS: CALCIUM 8.8 mg/dL (8.5-10.1); CREATININE 0.5 mg/dL (0.6-1.0); POTASSIUM 3.2 mmol/L (3.5-5.1)
[2017-10-10 04:27] LABS: CALCIUM 8.3 mg/dL (8.5-10.1); CREATININE 0.5 mg/dL (0.6-1.0); PHOSPHORUS 3.8 mg/dL (2.5-4.9)
[2017-10-10 06:54] VITALS: BP 129/89
[2017-10-10 08:40] LABS: PROTIME 10.4 Seconds (9.3-11.4)
[2017-10-10 11:03] VITALS: BP 167/63
[2017-10-10 20:00] VITALS: BP 152/69
[2017-10-10 23:25] VITALS: BP 146/83
[2017-10-10 23:58] VITALS: BP 149/73
[2017-10-11 04:00] VITALS: BP 147/68
[2017-10-11 07:35] VITALS: BP 157/78
[2017-10-11] MEDS ORDERED: HYDROCODON-ACE1 EAC7 PO (11:14)
[2017-10-11] MEDS ORDERED: FLORINEF ACETA0.1 MG PO (11:16)
[2017-10-11 11:36] VITALS: BP 157/78
== END 2017-10-11 14:07 | disposition home or self-care (01) | DRG 516 ==
LOC: ER 13:09 → EROBS 15:22 → 4N 15:22 → ENTRNSPT 10-11 13:57 → EDTRNSPTSTS 10-11 14:00 → 4N 10-11 14:07
PROVIDERS: Internal Medicine; Nurse Practitioner Family; Nurse Practitioner Gerontology
DX: S32.039A Unspecified fracture of third lumbar vertebra, initial encounter for closed fracture (principal); I50.30 Unspecified diastolic (congestive) heart failure; E27.40 Unspecified adrenocortical insufficiency; E44.1 Mild protein-calorie malnutrition; F32.9 Major depressive disorder, single episode, unspecified; K21.9 Gastro-esophageal reflux disease without esophagitis; I25.10 Atherosclerotic heart disease of native coronary artery without angina pectoris; E03.9 Hypothyroidism, unspecified; M81.0 Age-related osteoporosis without current pathological fracture; M35.3 Polymyalgia rheumatica; I95.1 Orthostatic hypotension; I11.0 Hypertensive heart disease with heart failure; K59.00 Constipation, unspecified; G43.909 Migraine, unspecified, not intractable, without status migrainosus; Z60.2 Problems related to living alone; Z98.49 Cataract extraction status, unspecified eye; Z82.49 Family history of ischemic heart disease and other diseases of the circulatory system; Z68.20 Body mass index [BMI] 20.0-20.9, adult; W18.39XA Other fall on same level, initial encounter; Y93.01 Activity, walking, marching and hiking; Y92.511 Restaurant or cafe as the place of occurrence of the external cause; Y99.8 Other external cause status; Z90.710 Acquired absence of both cervix and uterus; Z86.73 Personal history of transient ischemic attack (TIA), and cerebral infarction without residual deficits; Z88.6 Allergy status to analgesic agent; Z88.8 Allergy status to other drugs, medicaments and biological substances
CPT/HCPCS: 10091

== ENCOUNTER 2017-12-03 12:31 | Inpatient (IN) | payer OTHER ==
[~2017-12-03] VITALS: Ht 157.5 cm; Wt 49.9 kg
--- NOTE | ~2017-12-03 | EKG ---
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 : 1930 Requested By: Yoni Schreiber Order Number: [id number] MD: Garth Redd Measurements Intervals [place] Rate: 64 P: 27 WI: 162 QRS: 43 QRSD: 76 T: 84 QT: 400 QTc: 413 Interpretive Statements Sinus rhythm Consider left ventricular hypertrophy Anterior Q waves, possibly due to LVH Compared to ECG 10/09/2017 16:33:59 Left ventricular hypertrophy now present Q waves now present Left ventricular hypertrophy now present ST (T wave) deviation no longer present Electronically Signed On 12-04-2017 8:29:32 CDT by Garth Redd [email or web address] <ELECTRONICALLY SIGNED> By: Garth Redd MD 12/04/17 0829 1537 1537 Garth Redd MD /EPI
--- NOTE | ~2017-12-03 | D ---
[facility] [place] [address] DISCHARGE SUMMARY Name: KATELYN BUTTS Room #: 404-P [facility].R.#: [id number] Admission: 12/03/17 Attend Phys: Yoni Schreiber MD Discharge: 12/05/17 Date of : 32 Report #: [id number] THIS REPORT FOR: //name// CC: Yoni Schreiber DATE OF SERVICE: 12/05/2017 HOSPITAL COURSE: The patient was admitted with abdominal discomfort and diarrhea and severe generalized malaise and found to be markedly hypokalemic, with a potassium level of 2.7 on admission. She was aggressively rehydrated for her dehydration and given both intravenous and oral potassium and by the following morning, her potassium level was back up to 4.0. She also has a fairly recent history of diagnosis of adrenal insufficiency and although she takes prednisone and Florinef on a daily basis, she could still be somewhat insufficient, especially given the acute illness. I therefore have added 20 mEq of potassium chloride to her daily medication regimen and will see her in followup in 2 weeks to reassess adequacy of replacement therapy. She is agreeable to this. At the time of dictation, she is on the following medications: Gabapentin 300 mg p.o. at bedtime, levothyroxine 0.075 mg p.o. every day, aspirin 81 mg by mouth p.o. every day, tamsulosin 0.4 mg p.o. b.i.d., multivitamin with minerals daily, melatonin 3 mg by mouth at bedtime as needed for insomnia, vitamin D 2000 units by mouth daily, MiraLax 17 grams daily in a glass of water as needed for constipation, prednisone 10 mg every morning and 5 mg every noon, Florinef 0.1 mg by mouth daily in the morning, metoprolol succinate 50 mg by mouth daily, hydrocodone bitartrate/acetaminophen 5/325 one half tablet by mouth every 6 hours as needed for pain or Tylenol 650 mg oral 3 times daily as needed for pain or fever, potassium chloride 20 mEq daily in the morning. She will be on a regular diet. DISCHARGE DIAGNOSES: As follows: 1. Acute viral gastroenteritis. 2. Dehydration. 3. Severe hypokalemia. 4. History of recurrent aspiration. 5. Dysphagia. 6. Paralyzed vocal cord. She has a history of orthostatic hypotension and adrenal gland insufficiency, gastroesophageal reflux disease and constipation. 7. History of hemiplegic migraine headaches. [address] [address] DISCHARGE SUMMARY Name: KATELYN BUTTS Room #: 404-P [facility] IN .R.#: [id number] Admission: 12/03/17 Attend Phys: Yoni Schreiber MD Discharge: 12/05/17 Date of : 32 Report #: [id number] Followup is as planned above. No additional recommendations. <ELECTRONICALLY SIGNED> By: Yoni Schreiber MD 12/08/17 1234 1851 47 Yoni Schreiber MD /cristy
--- NOTE | ~2017-12-03 | H ---
[facility] [place]yn [place] [address] HISTORY AND PHYSICAL Name: KATELYN GUZMAN Room #: 404-P ADM IN M.R.#: [id number] Admission: 12/03/17 Attend Phys: Yoni Schreiber MD Discharge: Date of : 34 Report #: [id number] THIS REPORT FOR: //name// CC: Yoni Schreiber DATE OF SERVICE: 12/03/2017 CHIEF COMPLAINT: Abdominal pain. HISTORY OF PRESENT ILLNESS: The patient is an 87-year-old female who presented to Dr. Schreiber' office today with a week's history of generalized malaise, which she had a great deal of difficulty in defining. Eventually though, she revealed that she was having some abdominal discomfort and some diarrhea. She did not admit to seeing any blood in her stools or any altered color. She has been feeling quite tired lately. She feels worse when she gets up. There is headache and head-spinning when she gets up. No fever, chills or sweats that she is aware of. No dysuria and no chest pain or shortness of breath other than her baseline shortness of breath with minimal exertion. She has not had any falls or other trauma lately. 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 MEDICATIONS: Include levothyroxine, tamsulosin, Florinef, prednisone, multivitamins, acetaminophen, aspirin, vitamin D, estradiol vaginal cream for treatment of chronic pelvic pain of a 2-week course intermittently, MiraLax, metoprolol 50 mg daily, melatonin 3 mg by mouth nightly, gabapentin 300 mg nightly, and she also uses hydrocodone/APAP 2.5/325 by mouth q. 6 hours p.r.n. pain. ALLERGIES: SHE IS ALLERGIC TO AMLODIPINE AND MORPHINE. SOCIAL HISTORY: She lives alone. She is from a physician, Dr. Jose Guzman. She has 5 grown children. She is a nonsmoker, nondrinker and has no other vices. She lives at [facility] in an independent home. FAMILY HISTORY: Significant for brain tumor in a sibling and longevity in others and some dementia. [address] [address] HISTORY AND PHYSICAL Name: KATELYN GUZMAN Room #: 404-P [facility] IN M.R.#: [id number] Admission: 12/03/17 Attend Phys: Yoni Schreiber MD Discharge: Date of : 32 Report #: [id number] REVIEW OF SYSTEMS: She reports that she just feels terrible, but has great difficulty being more specific in that. She states that has been going on for a week and she was trying to avoid going to the hospital, so she did not call until medical appointment was unavoidable. PHYSICAL EXAMINATION: At the office. VITAL SIGNS: Showed a pulse of 76, respirations of 12 per minute, blood pressure of 136/75, oxygen saturation was 95% on room air. Weight and height were not recorded. GENERAL: This is a mostly downcast elderly white female who "feels terrible." HEENT: There is no evidence of cranial trauma or falls. Her extraocular muscles are intact. Her conjunctivae are anicteric. The oropharynx is moist and pink without lesions, exudates or masses. NECK: Without adenopathy, thyromegaly, mass or jugular venous distention. Her range of motion is pretty good. There was a slight anterior kyphosis. LUNGS: Fairly clear bilaterally to auscultation and percussion. No wheezes detected on exam today. CARDIOVASCULAR: Reveals regular rhythm with no significant murmur, gallop or rub. ABDOMEN: Soft. Bowel sounds are present throughout without visceromegaly or masses. EXTREMITIES: There is no cyanosis or clubbing or peripheral edema. She does have marked degenerative changes, especially in the hands. There is tenting of the skin noted. Otherwise, no significant findings. NEUROLOGIC: Mental status: The patient is alert and fully oriented. Her affect is downcast, but she smiles appropriately sometimes at humor, but does not feel well clearly. No focal deficits of sensation or motor function or deep tendon reflexes or cranial cerebellar function are noted. Cranial nerves 2-12 are intact. LABORATORY DATA: Electrocardiogram shows a normal sinus rhythm with consideration of left ventricular hypertrophy, anterior Q-waves possibly due to left ventricular hypertrophy. These findings are somewhat variable compared to past EKGs from over the last year or 2 in the [facility] computer system. No acute changes are seen, however. CBC with differential shows a white count of 8200 and 85.4% segmented neutrophils, 12.2% lymphocytes, 2.0% monocytes, 0.4% basophils and 0 eosinophils. Her absolute neutrophil count is 7000. Her hemoglobin was 14.8 with hematocrit of 43.5 and normal red blood cell indices, platelet count was 261,000. Her chemistry showed a sodium of 139, a markedly abnormal potassium of 2.7, chloride of 100, CO2 of 31, which is borderline elevated. The anion gap was 8, BUN was 23 and creatinine 0.8, glucose was 183, nonfasting. The AST was normal at 16 and the ALT was normal at 20. The amylase and lipase are also normal at 55 and 69 respectively. Total bilirubin is 0.3, calcium was 8.4, alkaline phosphatase 53, also normal. Total protein is 6.4 and albumin is [facility] [address] [place] [address] HISTORY AND PHYSICAL Name: KATELYN GUZMAN Room #: 404-P ADM IN [facility].#: [id number] Admission: 12/03/17 Attend Phys: Yoni Schreiber MD Discharge: Date of : 32 Report #: [id number] slightly depressed at 3.3. The estimated GFR for these numbers in this patient is 68. Magnesium level was also obtained because of the low potassium and it was 2.0 and normal. Stool studies for C. diff and culture for enteric pathogens are pending at the time of this dictation. ASSESSMENT AND PLAN: 1. Diarrhea and severe hypokalemia and dehydration -- start the patient on intravenous fluid replacements and try to normalize her electrolytes as much as possible. I do suspect that her hypokalemia has something to do with her diarrhea. She minimizes this symptom, but it is clear that it troubles her frequently. Her adrenal insufficiency is probably contributing. I am wondering if she has been taking her prednisone as directed. 2. Hypothyroidism. At last check, she was adequately replaced. We will check again while she is here. 3. Polymyalgia rheumatica. I am considering pulse dose steroids with larger doses than she has been taking. We will check an erythrocyte sedimentation rate and CRP before making that decision. Her blood pressure is adequate at the present time. 4. Osteoarthritis, multiple sites, reasonably stable. 5. 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 6. Urinary retention, waiting urinalysis for culture to see if she might have developed a urinary tract infection and we will treat accordingly when we have the results. <ELECTRONICALLY SIGNED> By: Yoni Schreiber MD 12/04/17 1854 23 31 Yoni Schreiber MD /nt
[~2017-12-03 12:31] MED LIST changes: +FLORINEF ACETA0.1 MG PO; +HYDROCODON-ACE1 EAC7 PO; +PREDNISONE 5 MG5 M1; +[UNRECOGNIZED DRUG - OTHER]
[2017-12-03 12:51] VITALS: BP 130/74
[2017-12-03 15:05] VITALS: BP 124/78
[2017-12-03 15:24] LABS: BASOPHILS 0.4 % (0.0-2.0); HEMATOCRIT 43.5 % (37.0-47.0); HEMOGLOBIN 14.8 gm/dL (12.0-15.0); LYMPHOCYTES 12.2 % (24.0-44.0); MCH 32.1 pg (26.0-34.0); MCHC 33.9 g/dL (28.0-37.0); MCV 94.6 fL (80.0-100.0); PLATELET COUNT 261 thou/uL (150-400); POLYS 85.4 % (36.0-66.0); RDW 13.8 % (10.5-14.5); WBC 8.2 thou/uL (4.0-11.0)
[2017-12-03 15:56] LABS: ALBUMIN 3.3 g/dL (3.4-5.0); CALCIUM 8.4 mg/dL (8.5-10.1); CREATININE 0.8 mg/dL (0.6-1.0); DIRECT BILIRUBIN 0.1 mg/dL (<0.1-0.3); TOTAL BILIRUBIN 0.3 mg/dL (<0.1-1.0); TOTAL PROTEIN 6.4 g/dL (6.4-8.2)
[2017-12-03 16:06] LABS: POTASSIUM 2.7 mmol/L (3.5-5.1)
[2017-12-03 18:44] LABS: URINE BILIRUBIN NEGATIVE (Negative); URINE BLOOD TRACE (Negative); URINE CLARITY CLEAR; URINE COLOR YELLOW; URINE GLUCOSE-RANDOM* NEGATIVE (Negative); URINE KETONES NEGATIVE (Negative); URINE LEUKOCYTES-REFLEX NEGATIVE (Negative); URINE NITRITE-REFLEX NEGATIVE (Negative); URINE PROTEIN (DIPSTICK) NEGATIVE (Negative); URINE SPECIFIC GRAVITY 1.025 (1.005-1.035); URINE UROBILINOGEN 0.2 E.U./dl (0.2-1.0)
[2017-12-03 20:00] VITALS: BP 175/62
[2017-12-03 20:18] LABS: CALCIUM 8.3 mg/dL (8.5-10.1); CREATININE 0.6 mg/dL (0.6-1.0)
[2017-12-03 20:20] LABS: POTASSIUM 2.9 mmol/L (3.5-5.1)
[2017-12-04 04:00] VITALS: BP 142/63
[2017-12-04 06:28] LABS: CALCIUM 8.3 mg/dL (8.5-10.1); CREATININE 0.5 mg/dL (0.6-1.0)
[2017-12-04 07:12] VITALS: BP 176/81
[2017-12-04 16:18] VITALS: BP 183/91
[2017-12-04] MEDS ORDERED: METOPROLOL SUCC50 MG PO (18:31)
[2017-12-04] MEDS ORDERED: ACETAMINOPHEN325 M1 PO (18:32)
[2017-12-04] MEDS ORDERED: HYDROCODON-ACE1 EAC7 PO (18:32)
[2017-12-04] MEDS ORDERED: K-DUR 20 MEQ T20 MEQ PO (18:33)
[2017-12-04 20:00] VITALS: BP 158/88
[2017-12-05 04:00] VITALS: BP 177/87
[2017-12-05 04:11] LABS: GLYCOHEMOGLOBIN (HGB A1C) 4.8 % (4.8-5.6)
[2017-12-05 08:14] VITALS: BP 187/90
[2017-12-05 09:31] VITALS: BP 187/90
[2017-12-05 10:31] VITALS: BP 138/69
== END 2017-12-05 11:30 | disposition home or self-care (01) | DRG 392 ==
LOC: 4N 12:31 → ENTRNSPT 12-05 11:22 → EDTRNSPTSTS 12-05 11:27 → 4N 12-05 11:30
PROVIDERS: Internal Medicine
DX: A08.4 Viral intestinal infection, unspecified (principal); I50.30 Unspecified diastolic (congestive) heart failure; E27.40 Unspecified adrenocortical insufficiency; R19.7 Diarrhea, unspecified; E87.6 Hypokalemia; E86.0 Dehydration; J38.00 Paralysis of vocal cords and larynx, unspecified; G43.909 Migraine, unspecified, not intractable, without status migrainosus; I11.0 Hypertensive heart disease with heart failure; I27.20 Pulmonary hypertension, unspecified; M81.0 Age-related osteoporosis without current pathological fracture; F32.9 Major depressive disorder, single episode, unspecified; E03.9 Hypothyroidism, unspecified; K21.9 Gastro-esophageal reflux disease without esophagitis; R33.9 Retention of urine, unspecified; I25.10 Atherosclerotic heart disease of native coronary artery without angina pectoris; M35.3 Polymyalgia rheumatica; M19.90 Unspecified osteoarthritis, unspecified site; Z79.82 Long term (current) use of aspirin; Z79.899 Other long term (current) drug therapy; Z90.710 Acquired absence of both cervix and uterus; Z88.5 Allergy status to narcotic agent; Z88.8 Allergy status to other drugs, medicaments and biological substances; Z82.0 Family history of epilepsy and other diseases of the nervous system
CPT/HCPCS: 10790

== ENCOUNTER 2017-12-17 15:28 | Emergency (ER) | payer OTHER ==
[~2017-12-17] VITALS: Ht 157.5 cm; Wt 50.8 kg
--- NOTE | ~2017-12-17 | EKG ---
[place] [address] [facility] [place] [address] ELECTROCARDIOGRAM REPORT Name: MARAH BUTTS [id number] Admission: 12/17/17 Attend Phys: Discharge: 12/17/17 Date of : 32 Report #: [id number] THIS REPORT FOR: //name// [facility] ED Test Date: 2017-12-17 Test Time: 17:12:09 Pat Name: MARAH BUTTS Department: Room: Gender: F Floor Associate: jlambertz : 1930 Requested By: Marlin Diallo Order Number: [id number] MD: Israel Wheeler Measurements Intervals [place] Rate: 51 P: 37 [place]: 150 QRS: 18 QRSD: 82 T: 30 QT: 432 QTc: 398 Interpretive Statements Sinus rhythm Left ventricular hypertrophy Septal infarct, age indeterminate Baseline wander in lead(s) V6 Compared to ECG 12/03/2017 15:37:10 No significant changes Electronically Signed On 12-18-2017 7:46:38 CDT by Israel Wheeler [email or web address] <ELECTRONICALLY SIGNED> By: Israel Wheeler MD, [facility] 12/18/17 0746 11 11 Israel Wheeler MD, [facility] /EPI
[~2017-12-17 15:28] MED LIST changes: +K-DUR 20 MEQ T20 MEQ PO; +METOPROLOL SUCC50 MG PO
[2017-12-17] MEDS ORDERED: K-DUR 20 MEQ T20 MEQ (16:01)
[2017-12-17 17:14] LABS: URINE BILIRUBIN NEGATIVE (Negative); URINE BLOOD 1+ (Negative); URINE CLARITY CLEAR; URINE COLOR YELLOW; URINE GLUCOSE-RANDOM* NEGATIVE (Negative); URINE KETONES NEGATIVE (Negative); URINE LEUKOCYTES-REFLEX NEGATIVE (Negative); URINE NITRITE-REFLEX NEGATIVE (Negative); URINE PROTEIN (DIPSTICK) NEGATIVE (Negative); URINE UROBILINOGEN 0.2 E.U./dl (0.2-1.0)
[2017-12-17 17:25] LABS: CASTS None Seen /LPF (None Seen); MUCUS >6 Heavy strn/LPF (None Seen); SQUAMOUS 0-3 Few /LPF (0-3)
[2017-12-17 17:26] LABS: CRYSTALS None Seen /LPF (None Seen); URINE RBC 3-10 Few /HPF (0-2); URINE WBC-REFLEX 6-15 Few /HPF (0-5)
[2017-12-17 17:35] LABS: BASOPHILS 0.6 % (0.0-2.0); EOSINOPHILS 0.1 % (0.0-3.0); HEMATOCRIT 42.7 % (37.0-47.0); HEMOGLOBIN 14.6 gm/dL (12.0-15.0); MCH 32.6 pg (26.0-34.0); MCHC 34.2 g/dL (28.0-37.0); MCV 95.6 fL (80.0-100.0); MONOCYTES 4.8 % (1.0-8.0); PLATELET COUNT 269 thou/uL (150-400); POLYS 79.5 % (36.0-66.0); RBC 4.47 mil/uL (4.20-5.00); RDW 14.4 % (10.5-14.5)
[2017-12-17 18:20] LABS: ALBUMIN 3.4 g/dL (3.4-5.0); ANION GAP 9 mmol/L (7-16); BUN 21 mg/dL (7-18); CALCIUM 8.6 mg/dL (8.5-10.1); CHLORIDE 103 mmol/L (98-107); CO2 25 mmol/L (21-32); CREATININE 0.5 mg/dL (0.6-1.0); DIRECT BILIRUBIN < 0.1 mg/dL (<0.1-0.3); GLUCOSE 117 mg/dL (74-106); POTASSIUM 3.5 mmol/L (3.5-5.1); SGOT 16 U/L (15-37); SGPT 18 U/L (30-65); SODIUM 137 mmol/L (136-145); TOTAL BILIRUBIN 0.3 mg/dL (<0.1-1.0); TOTAL PROTEIN 6.3 g/dL (6.4-8.2)
[2017-12-17 19:02] VITALS: BP 170/83
== END 2017-12-17 19:04 | disposition home or self-care (01) ==
LOC: ER 15:28
PROVIDERS: Emergency Medicine
DX: R53.1 Weakness (principal); M81.0 Age-related osteoporosis without current pathological fracture; F32.9 Major depressive disorder, single episode, unspecified; I11.0 Hypertensive heart disease with heart failure; I50.30 Unspecified diastolic (congestive) heart failure; E03.9 Hypothyroidism, unspecified; I25.10 Atherosclerotic heart disease of native coronary artery without angina pectoris; Z86.73 Personal history of transient ischemic attack (TIA), and cerebral infarction without residual deficits; Z88.5 Allergy status to narcotic agent; Z88.8 Allergy status to other drugs, medicaments and biological substances

== ENCOUNTER 2018-01-06 06:31 | Inpatient (IN) | payer OTHER ==
[~2018-01-06] VITALS: Ht 160 cm; Wt 50.8 kg
--- NOTE | ~2018-01-06 | D ---
[facility] [place] [address] DISCHARGE SUMMARY Name: MARAH BUTTS Room #: 454-P [facility] IN ..#: [id number] Admission: 01/06/18 Attend Phys: Yoni Schreiber MD Discharge: 01/11/18 Date of : 32 Report #: [id number] THIS REPORT FOR: //name// CC: [facility]IM[facility]E [facility]re[facility] DATE OF SERVICE: 01/11/2018 HOSPITAL COURSE: The patient was admitted with intractable generalized pain that eventually localized to the right upper chest wall. Extensive workup was done looking for pneumonia, pulmonary emboli, fractures and shingles. Initially, the entire workup was negative. However, on further evaluation of the second CT scan, Dr. Colon detected a subtle right second rib fracture that corresponded with the patient's pain. The patient was initially started with fentanyl IV for pain control in the Emergency Room and eventually, that was converted to fentanyl patch. Along with this discomfort, the patient has significant worsening general debility from the time she has spent in bed. She denies any recent trauma, although she did have a fall approximately 5 weeks prior to this admission. I feel that the fall is unlikely to have been the cause of her pain as it occurred so far in advance of the development of chest pain. The patient also had an MRI scan of the brain while she was here because of continuing concerns after her fall with regards to her mental status and lightheadedness when she is standing. MRI of the brain was benign. There was no evidence of tumor or bleed or any new strokes. Pain Clinic consultation with Dr. Bogdan Jimenez was obtained. After considering her particular case, he felt that an intercostal nerve block would not be appropriate because of the increased risk of pneumothorax. He instead agreed that a small dose of continuing narcotic for a couple of weeks as well as low-dose nonsteroidal anti-inflammatories that could be GI friendly and Tylenol and lidocaine patch would be sufficient for her problem. The patient was agreeable to pursuing this as well. PT and OT and Physical Medicine and Rehab consults were obtained. The patient was felt to be best suited to go to a Long Term Unit after discharge from the hospital. She lives independently in a home at [facility] and they have a Long Term Unit that is actually across the street from her home. The plan is for her to go there when a bed is available to continue physical and occupational therapy as she recovers her strength and independence. [address] [address] DISCHARGE SUMMARY Name: MARAH BUTTS Room #: 454-P DIS IN ..#: [id number] Admission: 01/06/18 Attend Phys: Yoni Schreiber MD Discharge: 01/11/18 Date of : 32 Report #: [id number] MEDICATIONS: Her medication regimen at the time of discharge is as follows: Gabapentin 300 mg by mouth nightly, levothyroxine 0.075 mg by mouth daily, aspirin 81 mg by mouth daily, tamsulosin 0.4 mg by mouth twice daily, multivitamin once daily, melatonin 3 mg at bedtime p.r.n. insomnia, vitamin D 2000 units by mouth daily, polyethylene glycol 17 grams by mouth daily as needed for constipation, Florinef 0.1 mg by mouth daily in the morning, metoprolol succinate 50 mg by mouth nightly at bedtime, Tylenol 650 mg by mouth 3 times a day as needed for pain or fever, potassium chloride 20 mEq by mouth twice daily, prednisone 5 mg by mouth twice daily in the morning and afternoon. DISCHARGE DIAGNOSES: 1. Intractable chest pain. 2. Right second rib fracture, nonpathologic. 3. Hypokalemia. 4. Orthostatic hypotension. 5. Adrenal gland insufficiency. 6. Gastroesophageal reflux disease. 7. Chronic urinary retention. 8. Chronic dyspnea on exertion. 9. History of hemiplegic migraine headaches noted by me. DISCUSSION: The patient was hypokalemic at the time of admission, with a potassium level of 2.8. She received aggressive intravenous rehydration for her dehydration and was given intravenous potassium and promptly recovered within a day. She is being discharged on 20 mEq by mouth twice daily of potassium, with the recommendation that a basic metabolic panel will be checked again in about a week. Her magnesium level was low normal and did not require supplementation during this hospital stay. <ELECTRONICALLY SIGNED> By: Yoni Schreiber MD 01/14/18 1344 1339 [id number] Yoni Schreiber MD /nt
--- NOTE | ~2018-01-06 | H ---
[facility] [place] [address] HISTORY AND PHYSICAL Name: MARAH BUTTS Room #: 454-P [facility] IN M.R.#: [id number] Admission: 01/06/18 Attend Phys: Bacilio Palm Discharge: Date of : 32 Report #: [id number] THIS REPORT FOR: //name// CC: Bacilio Schreiber MD DATE OF SERVICE: 01/06/2018 CHIEF COMPLAINT: Severe right chest wall pain causing shortness of breath, intractable hypokalemia and hypomagnesemia. HISTORY OF PRESENT ILLNESS: The patient woke up about 5:30 this morning as usual, but immediately felt severe pain in her left and occasionally in her right chest. The pain was radiating across to the left side of the chest, but as time went by it seemed to center more on the right and be more severe. She called the paramedics. She was evaluated in the Emergency Room where initial evaluation was negative, but did uncover severely low potassium. Intravenous fentanyl was ineffective at relieving her pain, IV ketorolac was somewhat helpful, but she ultimately required admission for treatment of her pain as well as intravenous replacement of her severely low potassium. PAST MEDICAL HISTORY: She was admitted for several days on 12/03/2017 for an acute viral gastroenteritis that was also accompanied with severely low potassium, dehydration, recurrent aspiration, dysphagia and history of a paralyzed vocal cord. She has orthostatic hypotension. She has hemiplegic migraines. She also has adrenal insufficiency treated with prednisone and Florinef, hypertension, chronic migraines with intermittent hemiplegic migraines, diastolic congestive heart failure, chronic shortness of breath with mild pulmonary hypertension, osteoporosis with pelvic fractures, depression, history of hysterectomy, hypothyroidism, GERD, mild coronary artery disease, past history of polymyalgia rheumatica, prior foot surgeries, osteoarthritis in multiple sites and urinary retention. 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 CURRENT MEDICATIONS: Gabapentin 300 mg at bedtime for her neuropathy, levothyroxine 0.075 mg daily, aspirin 81 mg daily, tamsulosin 0.4 mg twice daily, multiple vitamin with minerals daily, melatonin 5 mg at bedtime, vitamin D 2000 units daily, MiraLax 17 grams daily on a p.r.n. basis as needed for her constipation, prednisone 10 mg every morning and was recently reduced to 5 mg in the morning and there is a 5 mg at noontime daily, Florinef 0.1 mg in the morning, metoprolol succinate 50 mg at bedtime. Potassium chloride 20 mEq [address] [address] HISTORY AND PHYSICAL Name: MARAH BUTTS Room #: 454-P [facility] IN M.R.#: [id number] Admission: 01/06/18 Attend Phys: Bacilio Palm Discharge: Date of : 32 Report #: [id number] been increased by Dr. Schreiber to twice daily. She no longer needs hydrocodone 1/2 tablet for pain. SOCIAL HISTORY: She does not drink or smoke. She lives in an independent living apartment at [facility] [place] and she is pleased to report that they do not have stairs in that building. She wishes to "just let me go" and no resuscitation efforts be made. This request of hers was made in the presence of her daughter who did not protest. REVIEW OF SYSTEMS: Negative except for the HPI above. FAMILY HISTORY: Negative-she has outlived her first degree relatives. PHYSICAL EXAMINATION: GENERAL: Shows an 87-year-old female in quite a bit of distress whenever she takes a deep breath. HEENT: Unremarkable except the oropharynx is mildly dry and there is a presence of torus palatinus, normal anatomic variant, in her hard palate. NECK: There is no adenopathy, thyromegaly or masses in her neck. No carotid bruits are heard. LUNGS: Clear in the deep bases, deep inspiration causes the patient to wince because of the pain in her right chest. Palpation over the 4th and 5th rib areas in the right midaxillary line is where there is a single point tenderness present that causes exquisite discomfort and is the location for her pain. Gentle palpation several centimeters away does not reproduce the pain of that specific location. CARDIOVASCULAR: S1 and S2 are normal. ABDOMEN: Soft and nontender. There is no organomegaly or masses present. EXTREMITIES: There is no edema in the lower extremities. NEUROLOGIC: Screening neurological examination is grossly normal. The patient's speech, language and memory all seem to be intact. LABORATORY DATA: Her potassium was very low at 2.8. Her magnesium was 1.9. Troponin was negative. WBC were 8.7 thousand and hemoglobin is 14.8. Chest x-ray showed cardiomegaly with moderate to large hiatal hernia unchanged from 12/17/2017. IMPRESSION: 1. Severe intractable chest wall/pleuritic pain in the right chest at the level of the 4th and 5th ribs in the midaxillary line that is quite painful with direct palpation or deep breath. 2. Severe hypokalemia despite adequate oral replacement. 3. Hypertension. 4. Adrenal insufficiency on corticoid and mineralocoid replacement therapy. [facility] [address] [place] [address] HISTORY AND PHYSICAL Name: MARAH BUTTS Room #: 454-P [facility] IN [facility]#: [id number] Admission: 01/06/18 Attend Phys: Bacilio Palm Discharge: Date of : 32 Report #: [id number] 5. Hypothyroidism. 6. Insomnia. 7. Constipation. 8. Mild dehydration by physical examination. 9. Other multiple medical problems as listed in the body of the report above. PLAN: The patient requires admission for treatment of her pain and for determining the source of her pain. Treatment will be continued with ketorolac IV and occasional small doses of fentanyl IV. A CT scan of the painful area in the chest will be obtained looking for an occult rib fracture. Lidocaine patch will be placed over the painful area. Her laboratory will be repeated again in the morning. She is being given oral and intravenous potassium as well as IV fluids containing potassium. The patient did request a do not resuscitate when asked specifically regarding her advanced directives. By: [id number] Vikas Levin MD /cristy
--- NOTE | ~2018-01-06 | EKG ---
[place] [address] [facility] [place] [address] ELECTROCARDIOGRAM REPORT Name: MARAH BUTTS Room #: 170-7 ADM IN M.R.#: [id number] Admission: 01/06/18 Attend Phys: Bacilio Palm Discharge: Date of : 32 Report #: [id number] THIS REPORT FOR: //name// [facility] ED Test Date: 2018-01-06 Test Time: 06:39:32 Pat Name: MARAH BUTTS Department: Room: Gender: F [employer] Drier: Piedad CARPENTER : 1930 Requested By: Rafael Granger Order Number: [id number] MD: Israel Wheeler Measurements Intervals [place] Rate: 56 P: 38 [place]: 158 QRS: 16 QRSD: 84 T: 6 QT: 422 QTc: 408 Interpretive Statements Sinus rhythm Left ventricular hypertrophy Anterior Q waves, possibly due to LVH Compared to ECG 12/17/2017 17:12:09 No significant change was found Electronically Signed On 01-06-2018 10:20:04 CDT by Israel Wheeler [email or web address] <ELECTRONICALLY SIGNED> By: Israel Wheeler MD, [facility] 01/06/18 1020 8 8 Israel Wheeler MD, [facility] /EPI
[~2018-01-06 06:31] MED LIST changes: +K-DUR 20 MEQ T20 MEQ
[2018-01-06 06:54] LABS: ABSOLUTE NEUTROPHILS 4.4 thou/uL (1.4-8.2); BASOPHILS 0.5 % (0.0-2.0); EOSINOPHILS 1.4 % (0.0-3.0); HEMATOCRIT 42.9 % (37.0-47.0); HEMOGLOBIN 14.8 gm/dL (12.0-15.0); LYMPHOCYTES 39.6 % (24.0-44.0); MCH 32.8 pg (26.0-34.0); MCHC 34.5 g/dL (28.0-37.0); MCV 95.1 fL (80.0-100.0); MONOCYTES 7.2 % (1.0-8.0); PLATELET COUNT 247 thou/uL (150-400); POLYS 51.3 % (36.0-66.0); RBC 4.51 mil/uL (4.20-5.00); RDW 14.2 % (10.5-14.5); WBC 8.7 thou/uL (4.0-11.0)
[2018-01-06 07:02] LABS: ANION GAP 8 mmol/L (7-16); BUN 17 mg/dL (7-18); CALCIUM 8.5 mg/dL (8.5-10.1); CHLORIDE 104 mmol/L (98-107); CO2 30 mmol/L (21-32); CREATININE 0.6 mg/dL (0.6-1.0); GLUCOSE 83 mg/dL (74-106); SODIUM 142 mmol/L (136-145)
[2018-01-06 07:07] LABS: POTASSIUM 2.8 mmol/L (3.5-5.1)
[2018-01-06 07:11] LABS: TROPONIN-I <0.06 ng/mL (<0.06)
[2018-01-06 09:38] VITALS: BP 155/75
[2018-01-06] MEDS ORDERED: PREDNISONE 5 MG5 M1 PO (10:06)
[2018-01-06 10:20] VITALS: BP 151/105
[2018-01-06 10:30] VITALS: BP 196/92
[2018-01-06 16:16] VITALS: BP 155/83
[2018-01-06 20:00] VITALS: BP 159/84
[2018-01-07] VITALS (8 sets, daily range): BP systolic 128–195; BP diastolic 70–115
[2018-01-07 05:17] LABS: HEMATOCRIT 48.2 % (37.0-47.0); HEMOGLOBIN 16.7 gm/dL (12.0-15.0); MCHC 34.6 g/dL (28.0-37.0); MCV 95.6 fL (80.0-100.0); RBC 5.04 mil/uL (4.20-5.00); RDW 14.4 % (10.5-14.5); WBC 10.6 thou/uL (4.0-11.0)
[2018-01-07 05:46] LABS: ALBUMIN 3.8 g/dL (3.4-5.0); CALCIUM 8.8 mg/dL (8.5-10.1); CREATININE 0.5 mg/dL (0.6-1.0); MAGNESIUM 2.5 mg/dL (1.8-2.4); TOTAL BILIRUBIN 0.6 mg/dL (<0.1-1.0); TOTAL PROTEIN 7.3 g/dL (6.4-8.2)
[2018-01-07 05:52] LABS: POTASSIUM 3.9 mmol/L (3.5-5.1)
[2018-01-07 19:45] LABS: BE(vivo) 1.6 mmol/L (-2 to +3); HCO3 24.3 mmol/L (22.0-26.0); PCO2 33.2 mmHg (35.0-45.0); PO2 64.2 mmHg (80.0-100.0); pH 7.483 (7.360-7.450); sO2 94.1 % (92.0-98.0)
[2018-01-08 03:36] VITALS: BP 174/72
[2018-01-08 08:01] VITALS: BP 157/97
[2018-01-08 16:34] VITALS: BP 172/87
[2018-01-08 19:28] VITALS: BP 137/63
[2018-01-09 03:16] VITALS: BP 160/74
[2018-01-09 05:50] LABS: CALCIUM 8.3 mg/dL (8.5-10.1); CREATININE 0.4 mg/dL (0.6-1.0); MAGNESIUM 1.8 mg/dL (1.8-2.4); POTASSIUM 3.3 mmol/L (3.5-5.1)
[2018-01-09 05:52] LABS: HEMATOCRIT 40.8 % (37.0-47.0); HEMOGLOBIN 14.2 gm/dL (12.0-15.0); MCHC 34.9 g/dL (28.0-37.0); MCV 94.6 fL (80.0-100.0); RBC 4.32 mil/uL (4.20-5.00); RDW 14.2 % (10.5-14.5)
[2018-01-09 08:00] VITALS: BP 159/68
[2018-01-09 16:00] VITALS: BP 143/63
[2018-01-09 19:43] VITALS: BP 148/78
[2018-01-10 03:30] VITALS: BP 171/78
[2018-01-10 08:00] VITALS: BP 157/74
[2018-01-10 16:29] VITALS: BP 154/70
[2018-01-10 19:03] VITALS: BP 142/57
[2018-01-11 05:17] VITALS: BP 150/82
[2018-01-11 07:45] VITALS: BP 147/62
[2018-01-11 08:22] VITALS: BP 147/62
[2018-01-11] MEDS ORDERED: VERAPAMIL HCL180 M4 PO (13:22)
[2018-01-11] MEDS ORDERED: MOBIC7.5 M1 PO (13:22)
[2018-01-11] MEDS ORDERED: DURAGESIC1 EACH TRANSDERM (13:23)
[2018-01-11] MEDS ORDERED: TRAMADOL 50 MG50 MG PO (13:24)
[2018-01-11] MEDS ORDERED: ONDANSETRON HCL4 M2 PO (13:25)
[2018-01-11] MEDS ORDERED: SENNA-TIME S T1 EACH PO (13:25)
[2018-01-11] MEDS ORDERED: LIDOPATCH1 EACH TRANSDERM (13:26)
== END 2018-01-11 16:33 | DRG 206 ==
LOC: ER 06:31 → 4W 09:24 → EROBS 09:24 → 4W 10:20
PROVIDERS: Emergency Medicine; Internal Medicine
DX: S22.31XA Fracture of one rib, right side, initial encounter for closed fracture (principal); I50.32 Chronic diastolic (congestive) heart failure; E27.40 Unspecified adrenocortical insufficiency; E87.6 Hypokalemia; I11.0 Hypertensive heart disease with heart failure; E86.0 Dehydration; G43.909 Migraine, unspecified, not intractable, without status migrainosus; M81.0 Age-related osteoporosis without current pathological fracture; F32.9 Major depressive disorder, single episode, unspecified; K21.9 Gastro-esophageal reflux disease without esophagitis; I25.10 Atherosclerotic heart disease of native coronary artery without angina pectoris; I95.1 Orthostatic hypotension; R33.9 Retention of urine, unspecified; E03.9 Hypothyroidism, unspecified; E78.5 Hyperlipidemia, unspecified; E83.42 Hypomagnesemia; G47.00 Insomnia, unspecified; K59.00 Constipation, unspecified; E86.1 Hypovolemia; I27.20 Pulmonary hypertension, unspecified; G60.9 Hereditary and idiopathic neuropathy, unspecified; Z87.81 Personal history of (healed) traumatic fracture; Z90.710 Acquired absence of both cervix and uterus; Z86.73 Personal history of transient ischemic attack (TIA), and cerebral infarction without residual deficits; Z88.6 Allergy status to analgesic agent; Z79.82 Long term (current) use of aspirin; Z88.8 Allergy status to other drugs, medicaments and biological substances; Z79.899 Other long term (current) drug therapy; Z98.49 Cataract extraction status, unspecified eye; Z90.49 Acquired absence of other specified parts of digestive tract; Z82.49 Family history of ischemic heart disease and other diseases of the circulatory system; X58.XXXA Exposure to other specified factors, initial encounter; Y93.89 Activity, other specified; Y92.89 Other specified places as the place of occurrence of the external cause; Y99.8 Other external cause status
CPT/HCPCS: 10045

== ENCOUNTER 2018-06-14 10:26 | Inpatient (IN) | payer OTHER ==
[~2018-06-14] VITALS: Ht 167.6 cm; Wt 53.5 kg
--- NOTE | ~2018-06-14 | 2DMMODE ---
[facility] [place] [address] 2 D/M-MODE ECHOCARDIOGRAM Name: MARAH BUTTS Room #: 452-P [facility] IN ..#: [id number] Admission: 06/14/18 Attend Phys: Yoni Schreiber MD Discharge: Date of : 34 Date of Service: 06/19/18 1500 Report #: [id number] THIS REPORT FOR: //name// APPROVED REPORT Study performed: 06/19/2018 14:02:06 EXAM: Comprehensive 2D, Doppler, and color-flow Echocardiogram Patient Location: Bedside Room #: 2 Status: routine BSA: 1.53 HR: 78 bpm BP: 193/91 mmHg Rhythm: NSR Other Information Study Quality: Adequate/off axis window availability Technically limited study due to limited mobility, lung artifact.. Indications Syncope. Hx: HTN, diastolic HF, TIAs, CHF, CAD 2D Dimensions RVDd: 27.22 mm IVSd: 10.53 (7-11mm) LVOT Diam: 18.89 (18-24mm) LVDd: 32.55 mm PWd: 9.44 (7-11mm) LVDs: 19.25 (25-40mm) Aortic Root: 28.44 mm Volumes Left Atrial Volume (Systole) Single Plane 4CH: 18.56 mL Single Plane 2CH: 35.63 mL LA ESV Index: 18.00 mL/m2 Aortic Valve AoV Peak Saul.: 1.32 m/s AO Peak Gr.: 7.02 mmHg LVOT Max P.04 mmHg LVOT Max V: 1.12 m/s BIJAN Vmax: 2.37 cm2 Mitral Valve E/A Ratio: 0.6 [facility] [place] [address] [place] [address] 2 D/M-MODE ECHOCARDIOGRAM Name: BENJAMÍNMARAH Teena [facility]#: [id number] Admission: 06/14/18 Attend Phys: Yoni Schreiber MD Discharge: Date of : 32 Date of Service: 06/19/18 1500 Report #: [id number] MV Decel. Time: 273.33 ms MV E Max Saul.: 0.56 m/s MV A Saul.: 0.89 m/s MV PHT: 79.27 ms IVRT: 106.11 ms Pulmonary Valve PV Peak Saul.: 0.96 m/s PV Peak Gr.: 3.69 mmHg Tricuspid Valve TR Peak Saul.: 2.45 m/s TR Peak Gr.: 23.93 mmHg Left Ventricle The left ventricle is normal size. There is normal LV segmental wall motion. Mild basal septal hypertrophy is present. Left ventricular systolic function is normal. LVEF is 60-65%. Mild diastolic dysfunction is present (impaired relaxation pattern). Right Ventricle The right ventricle is normal size. The right ventricular systolic function is normal. Atria The left atrium size is normal. The right atrium size is normal. Aortic Valve Aortic valve leaflets are mildly calcified. Mild aortic regurgitation. There is no aortic valvular stenosis. Mitral Valve The mitral valve is mildly calcified There is no mitral valve regurgitation noted. No evidence of mitral valve stenosis. Tricuspid Valve The tricuspid valve is normal in structure. Mild tricuspid regurgitation. Estimated PAP is 30mmHg Pulmonic Valve The pulmonary valve is normal in structure. Trace pulmonic regurgitation. Great Vessels The aortic root is normal in size. IVC is not well visualized. [facility] [address] [place] [address] 2 D/M-MODE ECHOCARDIOGRAM Name: MARAH BUTTS Room #: 452-P ADM IN M.R.#: [id number] Admission: 06/14/18 Attend Phys: Yoni Schreiber MD Discharge: Date of : 32 Date of Service: 06/19/18 1500 Report #: [id number] Pericardium There is no pericardial effusion. <Conclusion> Left ventricular systolic function is normal. There is normal LV segmental wall motion. LVEF is 60-65%. Mild diastolic dysfunction Aortic valve leaflets are mildly calcified. Mild aortic regurgitation, no stenosis. The mitral valve is mildly calcified, no mitral valve regurgitation. Mild tricuspid regurgitation. Estimated pulmonary artery pressure of 30mmHg There is no pericardial effusion. <ELECTRONICALLY SIGNED> By: Israel Wheeler MD, FACC 06/19/18 1500 1500 99 Israel Wheeler MD, FAC /INF
--- NOTE | ~2018-06-14 | PFR/MVV ---
[facility] [place] [address] PULMONARY FUNCTION MVV/REPORT Name: MARAH BUTTS Room #: 452-P [facility]#: [id number] Admission: 06/14/18 Attend Phys: Yoni Schreiber MD Discharge: 06/20/18 Date of : 32 Report #: [id number] THIS REPORT FOR: //name// COPIES FOR: AGE: 88 SEX/RACE: F/C >> SPIROMETRY: (BTPS) Height: 65 in cm Weight: 118 lbs kg Exam Date: 06/19/18 PRE-RX POST-RX PRED BEST %PRED BEST %PRED %CHG FVC LITERS . 2.43 . 2.25 . 93 . 2.30 . 95 . 2 FEV1 LITERS . 1.60 . 1.42 . 89 . 1.58 . 99 . 11 FEV1/FVC % . 80 . 63 . 79 . 69 . 86 . 9 IYU32-51% L/Sec . 1.08 . 0.63 . 58 . 0.93 . 86 . 49 PEF L/SEC . 5.20 . 3.47 . 67 . 3.79 . 73 . 9 FEF50/FIF50 UNITLESS . <1.00 . 0.47 . . 0.54 . . 15 MVV L/Min . 72 . 41 . 57 f 1/Min . . 70 . >> LUNG VOLUMES: (BTPS) PRE-RX POST-RX PRED AVG %PRED AVG %PRED %CHG VC Liters . 2.43 . 2.25 . 93 . . . TLC Liters . 4.89 . . . . . RV Liters . 2.16 . . . . . RV/TLC % . 44 . . . . . FRC PL Liters . 3.13 . . . . . FRC N2 Liters . 3.13 . 2.06 . 66 . . . ERV Liters . . . . . . IC Liters . . 1.60 . . . . >> DIFFUSION: DLCO ml/Min/mmHg . 14.9 . 6.3 . 42 . . . DL Lotus ml/Min/mmHg . 14.9 . 6.3 . 42 . . . DLCO/VA ml/Min/mmHg . 3.21 . 3.19 . 100 . . . VA Liters . . 1.96 . . . . [facility] [address] [place] [address] PULMONARY FUNCTION MVV/REPORT Name: MARAH BUTTS Room #: 452-P [facility]#: [id number] Admission: 06/14/18 Attend Phys: Yoni Schreiber MD Discharge: 06/20/18 Date of : 32 Report #: [id number] COMMENTS: COMMENTS: >> RESISTANCE: PRE-RX PRED AVG %PRED Raw Total cmH20/L/Sec . . . Raw Insp cmH20/L/Sec . . . Raw Exp cmH20/L/Sec . . . Raw cmH20/L/Sec . . . Gaw L/Sec/cmH20 . . . sRaw cmH20 Sec . . . sGaw l/cmH20 Sec . . . Vtq Liters . . . # = OUTSIDE 95% CONFIDENCE INTERVAL CALIBRATION: PRED: 3.00 ACTUAL: EXP 3.01 INSP 3.02 IPS-OL10-06 [facility]-05 N-1804-4 >> INTERPRETATION/IMPRESSION: CC: Yoni Schreiber DATE OF SERVICE: 06/19/2018 Pulmonary spirometry: FEV1 is 1.42 liters (89%), FVC is 2.25 liters (93%), FEV1/FVC ratio is 63%. Postbronchodilator therapy is intermediate response. Total lung capacity was unable to be obtained. Diffusing capacity is 42%. IMPRESSION: Nitrogen washout was performed instead of plethysmography to obtain lung volumes; however, the patient was unable to complete the studies. Spirometry is suggestive of a mild obstructive airflow defect with an intermediate response to bronchodilator therapy. Diffusing capacity is severely decreased. Total lung volumes were not able to be obtained. Please correlate clinically. Repeat testing may be warranted. Please correlate clinically. <ELECTRONICALLY SIGNED> By: Mark Matt MD 06/25/18 0430 Mark Matt MD /nt
--- NOTE | ~2018-06-14 | EKG ---
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1930 Requested By: James Burnett Order Number: [id number] MD: Harshal Rodríguez Measurements Intervals [place] Rate: 59 P: 40 [place]: 154 QRS: 40 QRSD: 77 T: QT: 394 QTc: 391 Interpretive Statements Sinus rhythm Left ventricular hypertrophy by voltage Anterior Q waves, possibly due to LVH Borderline LAE Compared to ECG 01/06/2018 06:39:32 No significant changes Electronically Signed On 06-14-2018 13:31:54 RN ACCESS by Harshal Rodríguez [email or web address] <ELECTRONICALLY SIGNED> By: Harshal Rodríguez MD 06/14/18 1331 1044 1044 Harshal Rodríguez MD /NIKOS
--- NOTE | ~2018-06-14 | H ---
[facility] [place] [address] HISTORY AND PHYSICAL Name: MRAAH BUTTS Room #: 452-P ADM IN ..#: [id number] Admission: 06/14/18 Attend Phys: Yoni Schreiber MD Discharge: Date of : 32 Report #: [id number] THIS REPORT FOR: //name// CC: Yoni Schreiber DATE OF SERVICE: 06/14/2018 CHIEF COMPLAINT: Fall. HISTORY OF PRESENT ILLNESS: The patient is an 88-year-old female who presented at the emergency department this morning. She was at home at her duplex at [facility] this morning and was working in her kitchen when she became dizzy and fell to the floor. She does admit to hitting her head, but not hard. She says most of the blow was taken by her lower back and she has some persistent lower back discomfort, but not severe and she denies any loss of consciousness. She has had increasing dizziness over the last couple of days. Approximately 3 days ago, I saw her at my office and her systolic blood pressure was in the range of 190 mmHg and at that time, I started her on amlodipine 5 mg daily. She specifically denies any chest pain or shortness of breath, but states that her dizziness has really been quite debilitating since starting the new medicine. 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 She has had a hysterectomy in the past. She has gastroesophageal reflux disease, chronic dyspnea, presumably due to the diastolic heart disease. She has mild coronary artery disease. She has hypothyroidism. She has chronic urinary retention and up until recently has been on twice a day tamsulosin, but she recently cut back to once a day. She has osteoarthritis. She has peripheral neuropathy of uncertain etiology. She has hiatal hernia, orthostatic hypotension, presumably due to adrenal gland insufficiency after chronic use of steroids for treatment of polymyalgia rheumatica. She has mild pulmonary hypertension. She has a history of aspiration pneumonia in the past and is known to have one-sided vocal cord paralysis, which is felt to be causing her dysphagia problem and when she swallows. Her diet is not restricted, but she must turn her head to one side in order to avoid aspirating. MEDICATIONS: At time of admission include Tylenol, levothyroxine, tamsulosin, metoprolol, amlodipine, thiamine, metoprolol XL 100 mg, potassium chloride, levothyroxine, fludrocortisone acetate, and melatonin. ALLERGIES: She is allergic to MORPHINE and claims to be allergic to AMLODIPINE on the computer chart. This was not mentioned when she was in the office today. [address] [address] HISTORY AND PHYSICAL Name: MARAH BUTTS Room #: 452-P [facility] IN .R.#: [id number] Admission: 06/14/18 Attend Phys: Yoni Schreiber MD Discharge: Date of : 32 Report #: [id number] SOCIAL HISTORY: She is a nonsmoker, nondrinker and has no vices. She lives alone after her several years ago. She has at least 4 or 5 grown children. REVIEW OF SYSTEMS: She says that she has just been feeling terrible lately, but has not a specific symptom that she can ascribe to this other than the sudden onset of developing dizziness since starting the new medicine. PHYSICAL EXAMINATION: VITAL SIGNS: In the emergency room showed pulse of 59, blood pressure of 99/79, respirations of 18, temperature of 36.6 degrees Celsius, and a pulse oximetry of 94% on room air on arrival and reported weight of 118 pounds. GENERAL: The patient is a pleasant elderly white female who appears frail and tired. HEENT: Extraocular muscles are intact. Oropharynx is moist and pink. No lesions, no exudates. NECK: Not Supple. There is no adenopathy, thyromegaly or mass or JVD or bruit noted, however. LUNGS: Clear to auscultation bilaterally. CARDIAC: Reveals a regular rhythm without significant new murmur, gallop or rub. ABDOMEN: Soft. Bowel sounds are present, no visceromegaly. No masses. The back is examined. There is minimal tenderness in the area of about L3, but no edema or skin breakdown or evidence of trauma. NEUROLOGIC: Shows a stocking distribution sensory deficit. Otherwise, no significant neurologic deficits and no significant skin lesions. Orthostatics were performed while she was in the emergency room and this showed that her supine blood pressure was 138/75 and fell to 99/79 when she stood up, with a pulse that did not change more than 4 beats per minute from 65-69 beats per minute. She was symptomatic at that time. DATA: EKG shows a normal sinus rhythm with a rate of 59, no evidence of ischemia. There is left ventricular hypertrophy. Urinalysis was fairly benign. There was 1+ leukocyte esterase on the dipstick, but the microscopic showed minimal white blood cells and showed some bacteria and some amorphous phosphates. The chemistry showed sodium of 139, potassium 3.2, chloride of 104, bicarbonate if 30, BUN of 22, creatinine 0.7, and the anion gap is 5, creatinine 0.7, GFR 79, glucose 83 nonfasting. Calcium is 9.5, magnesium is 2.2 and normal. Troponin is less than 0.06. White blood cell count elevated at 13,800, probably due to the steroids, which she currently takes (prednisone was excluded from the ____ [facility] [address] [place] [address] HISTORY AND PHYSICAL Name: MARAH BUTTS Room #: 452-P ADM IN .R.#: [id number] Admission: 06/14/18 Attend Phys: Yoni Schreiber MD Discharge: Date of : 32 Report #: [id number] DICTATION ENDS HERE <ELECTRONICALLY SIGNED> By: Yoni Schreiber MD 06/15/18 165 01 40 Yoni Schreiber MD /nt
[~2018-06-14 10:26] MED LIST changes: +DURAGESIC1 EACH TRANSDERM; +KEFLEX500 M1 PO; +LIDOPATCH1 EACH TRANSDERM; +MOBIC7.5 M1 PO; +ONDANSETRON HCL4 M2 PO; +PREDNISONE 5 MG5 M1 PO; +SENNA-TIME S T1 EACH PO; +TRAMADOL 50 MG50 MG PO; +VERAPAMIL HCL180 M4 PO
[2018-06-14 11:01] LABS: BASOPHILS 0.4 % (0.0-2.0); EOSINOPHILS 0.4 % (0.0-3.0); HEMATOCRIT 46.4 % (37.0-47.0); LYMPHOCYTES 18.8 % (24.0-44.0); MCH 33.1 pg (26.0-34.0); MCHC 34.4 g/dL (28.0-37.0); MCV 96.2 fL (80.0-100.0); MONOCYTES 7.9 % (1.0-8.0); PLATELET COUNT 259 thou/uL (150-400); POLYS 72.5 % (36.0-66.0); RBC 4.83 mil/uL (4.20-5.00); RDW 13.9 % (10.5-14.5); WBC 13.8 thou/uL (4.0-11.0)
[2018-06-14 11:16] LABS: ANION GAP 5 mmol/L (7-16); BUN 22 mg/dL (7-18); CALCIUM 9.5 mg/dL (8.5-10.1); CHLORIDE 104 mmol/L (98-107); CO2 30 mmol/L (21-32); CREATININE 0.7 mg/dL (0.6-1.0); GLUCOSE 83 mg/dL (74-106); POTASSIUM 3.2 mmol/L (3.5-5.1); SODIUM 139 mmol/L (136-145)
[2018-06-14] MEDS ORDERED: NORVASC5 MG PO (11:22)
[2018-06-14] MEDS ORDERED: VITAMIN B-1100 M2 PO (11:23)
[2018-06-14] MEDS ORDERED: TOPROL XL100 MG PO (11:23)
[2018-06-14 11:24] LABS: TROPONIN-I <0.06 ng/mL (<0.06)
[2018-06-14] MEDS ORDERED: POTASSIUM CHLO20 ME2 PO (11:24)
[2018-06-14] MEDS ORDERED: SYNTHROID50 MCG PO (11:24)
[2018-06-14] MEDS ORDERED: FLORINEF ACETA0.1 MG PO (11:25)
[2018-06-14 12:29] LABS: URINE BILIRUBIN NEGATIVE (Negative); URINE BLOOD 1+ (Negative); URINE CLARITY CLOUDY; URINE COLOR YELLOW; URINE GLUCOSE-RANDOM* NEGATIVE (Negative); URINE KETONES NEGATIVE (Negative); URINE NITRITE-REFLEX NEGATIVE (Negative); URINE PROTEIN (DIPSTICK) NEGATIVE (Negative); URINE UROBILINOGEN 0.2 E.U./dl (0.2-1.0)
[2018-06-14 12:31] LABS: URINE LEUKOCYTES-REFLEX 1+ (Negative)
[2018-06-14 12:38] LABS: MUCUS 0-3 Light strn/LPF (None Seen); RENAL EPITHELIAL CELLS 0-3 Few /LPF (None Seen); SQUAMOUS 0-3 Few /LPF (0-3); TRANSITIONAL EPITHEL CELL 0-3 Few /LPF (None Seen)
[2018-06-14 12:39] LABS: CASTS None Seen /LPF (None Seen); URINE WBC-REFLEX 0-5 Rare /HPF (0-5)
[2018-06-14 12:40] LABS: AMORPHOUS PHOSPHATES Moderate /LPF (None Seen); URINE RBC 0-2 Rare /HPF (0-2)
[2018-06-14 13:55] VITALS: BP 192/92
[2018-06-14 14:39] VITALS: BP 151/76
[2018-06-14 20:01] VITALS: BP 129/78
[2018-06-15 03:28] VITALS: BP 148/94
[2018-06-15 07:14] VITALS: BP 150/95
[2018-06-15 15:14] VITALS: BP 140/70
[2018-06-15 19:00] VITALS: BP 147/77
[2018-06-15 19:41] VITALS: BP 157/83
[2018-06-15 19:43] VITALS: BP 154/92
[2018-06-16 05:22] VITALS: BP 189/85
[2018-06-16 05:54] VITALS: BP 154/90
[2018-06-16 06:54] VITALS: BP 171/93
[2018-06-16 08:00] VITALS: BP 119/75
[2018-06-16 14:47] LABS: HEMATOCRIT 48.1 % (37.0-47.0); HEMOGLOBIN 16.6 gm/dL (12.0-15.0); MCHC 34.4 g/dL (28.0-37.0); MCV 95.9 fL (80.0-100.0); RBC 5.02 mil/uL (4.20-5.00); RDW 14.1 % (10.5-14.5); WBC 10.8 thou/uL (4.0-11.0)
[2018-06-16 14:55] LABS: CALCIUM 8.9 mg/dL (8.5-10.1); CREATININE 0.7 mg/dL (0.6-1.0); POTASSIUM 3.1 mmol/L (3.5-5.1)
[2018-06-16 16:00] VITALS: BP 183/82
[2018-06-16 19:48] VITALS: BP 159/99
[2018-06-17 03:56] VITALS: BP 175/81
[2018-06-17 08:40] VITALS: BP 173/92
[2018-06-17 14:16] VITALS: BP 158/86
[2018-06-17 19:27] VITALS: BP 169/80
[2018-06-18 07:51] VITALS: BP 186/89
[2018-06-18 10:52] VITALS: BP 186/89
[2018-06-18 15:43] VITALS: BP 179/83
[2018-06-18 19:04] VITALS: BP 170/82
[2018-06-19 03:25] VITALS: BP 154/94
[2018-06-19 04:31] LABS: CALCIUM 8.4 mg/dL (8.5-10.1); CREATININE 0.6 mg/dL (0.6-1.0)
[2018-06-19 04:44] LABS: HEMATOCRIT 43.5 % (37.0-47.0); HEMOGLOBIN 14.8 gm/dL (12.0-15.0)
[2018-06-19 07:10] VITALS: BP 180/100
[2018-06-19 08:42] VITALS: BP 181/100
[2018-06-19 08:43] VITALS: BP 188/91; BP 193/91
[2018-06-19 16:13] VITALS: BP 147/86
[2018-06-19 18:54] VITALS: BP 122/77
[2018-06-20 03:40] VITALS: BP 144/76
[2018-06-20 07:43] VITALS: BP 175/84
[2018-06-20 07:44] VITALS: BP 134/84; BP 150/86
[2018-06-20 10:17] LABS: CALCIUM 9.1 mg/dL (8.5-10.1); CREATININE 0.9 mg/dL (0.6-1.0); POTASSIUM 3.6 mmol/L (3.5-5.1)
[2018-06-20] MEDS ORDERED: MIDODRINE HCL 55 M1 PO (13:26)
[2018-06-20] MEDS ORDERED: ENOXAPARIN40 MG/0.1 SUBQ (13:26)
[2018-06-20] MEDS ORDERED: PACERONE 200 M200 M1 PO ×2 (13:28→13:29)
[2018-06-20] MEDS ORDERED: METOPROLOL SUCCINATE PO (13:29)
[2018-06-20] MEDS ORDERED: Tylenol 325MG Caplet PO (13:30)
[2018-06-20] MEDS ORDERED: FLORINEF ACETA0.1 MG PO (13:30)
[2018-06-20] MEDS ORDERED: POTASSIUM CHLORIDE E PO (13:30)
[2018-06-20] MEDS ORDERED: Prednisone 5 MG TAB PO ×2 (13:32)
[2018-06-20] MEDS ORDERED: VITAMIN B-1100 M2 PO (13:33)
[2018-06-20] MEDS ORDERED: Melatonin PO (13:33)
[2018-06-20] MEDS ORDERED: SYNTHROID 25 MCG PO (13:33)
[2018-06-20 17:10] VITALS: BP 175/84
== END 2018-06-20 17:30 | disposition home or self-care (01) | DRG 312 ==
LOC: ER 10:26 → EROBS 13:26 → 4W 13:26 → ENTRNSPT 06-20 17:32
PROVIDERS: Internal Medicine; Nurse Practitioner Gerontology; Physician Assistant
DX: I95.1 Orthostatic hypotension (principal); I50.32 Chronic diastolic (congestive) heart failure; E27.40 Unspecified adrenocortical insufficiency; I47.1 Supraventricular tachycardia; M81.0 Age-related osteoporosis without current pathological fracture; F32.9 Major depressive disorder, single episode, unspecified; K21.9 Gastro-esophageal reflux disease without esophagitis; I25.10 Atherosclerotic heart disease of native coronary artery without angina pectoris; E03.9 Hypothyroidism, unspecified; I27.20 Pulmonary hypertension, unspecified; G62.9 Polyneuropathy, unspecified; G43.909 Migraine, unspecified, not intractable, without status migrainosus; M35.3 Polymyalgia rheumatica; M19.042 Primary osteoarthritis, left hand; M19.041 Primary osteoarthritis, right hand; J38.01 Paralysis of vocal cords and larynx, unilateral; E87.6 Hypokalemia; Z60.2 Problems related to living alone; Z86.73 Personal history of transient ischemic attack (TIA), and cerebral infarction without residual deficits; Z87.81 Personal history of (healed) traumatic fracture; Z90.710 Acquired absence of both cervix and uterus; Z88.6 Allergy status to analgesic agent; Z88.8 Allergy status to other drugs, medicaments and biological substances; Z90.49 Acquired absence of other specified parts of digestive tract; Z98.49 Cataract extraction status, unspecified eye
CPT/HCPCS: 10045

== ENCOUNTER 2018-07-18 10:56 | Inpatient (IN) | payer OTHER ==
[~2018-07-18] VITALS: Ht 157.5 cm; Wt 56.7 kg
[~2018-07-18 10:56] MED LIST changes: +ENOXAPARIN40 MG/0.1 SUBQ; +METOPROLOL SUCCINATE PO; +MIDODRINE HCL 55 M1 PO; +Melatonin PO; +NORVASC5 MG PO; +PACERONE 200 M200 M1 PO; +POTASSIUM CHLO20 ME2 PO; +POTASSIUM CHLORIDE E PO; +Prednisone 5 MG TAB PO; +SYNTHROID 25 MCG PO; +SYNTHROID50 MCG PO; +TOPROL XL100 MG PO; +Tylenol 325MG Caplet PO
[2018-07-18 10:57] VITALS: BP 181/76
[2018-07-18] MEDS ORDERED: NEURONTIN 300300 M1 PO (12:38)
[2018-07-18 12:44] LABS: HEMATOCRIT 45.9 % (37.0-47.0); HEMOGLOBIN 15.7 gm/dL (12.0-15.0); MCH 32.7 pg (26.0-34.0); MCHC 34.1 g/dL (28.0-37.0); MCV 95.8 fL (80.0-100.0); RBC 4.8 mil/uL (4.20-5.00); RDW 14.2 % (10.5-14.5); WBC 15.5 thou/uL (4.0-11.0)
[2018-07-18 13:02] LABS: CALCIUM 8.8 mg/dL (8.5-10.1); CREATININE 0.7 mg/dL (0.6-1.0); POTASSIUM 3.4 mmol/L (3.5-5.1)
[2018-07-18 14:37] VITALS: BP 189/78
[2018-07-18 15:16] VITALS: BP 159/68
[2018-07-18 16:31] VITALS: BP 158/90
[2018-07-18 16:41] LABS: URINE BILIRUBIN NEGATIVE (Negative); URINE CLARITY CLEAR; URINE COLOR YELLOW; URINE GLUCOSE-RANDOM* NEGATIVE (Negative); URINE KETONES NEGATIVE (Negative); URINE PROTEIN (DIPSTICK) NEGATIVE (Negative); URINE SPECIFIC GRAVITY 1.015 (1.005-1.035)
[2018-07-18 16:42] LABS: URINE BLOOD 2+ (Negative); URINE LEUKOCYTES-REFLEX NEGATIVE (Negative); URINE NITRITE-REFLEX NEGATIVE (Negative); URINE UROBILINOGEN 0.2 E.U./dl (0.2-1.0)
[2018-07-18 16:52] LABS: AMORPHOUS PHOSPHATES Moderate /LPF (None Seen); BACTERIA-REFLEX None Seen /HPF (None Seen); CASTS None Seen /LPF (None Seen); SQUAMOUS None Seen /LPF (0-3); URINE RBC 3-10 Few /HPF (0-2); URINE WBC-REFLEX None Seen /HPF (0-5)
[2018-07-18 18:31] VITALS: BP 158/90
--- NOTE | 2018-07-18 18:55 | NUR ---
PT ARRIVED ON UNIT AT 1545 VS AND FLUIDS TAKEN AND STARTED ORDERED. ADMISSION PAPERWORK COMPLETED HAS SKIN TEAR TO LEFT FOREARM PICTURE AND TX COMPLETED. DR JOSEPH HERE TO SEE PATIENT PUT NEW ORDERS IN COMPUTER. FOR EKG AND X RAY.
[2018-07-18 19:13] VITALS: BP 174/76
[2018-07-19 04:49] VITALS: BP 143/59
--- NOTE | 2018-07-19 05:24 | NUR ---
ASSUMED CARE AT 1900, ASSESSMENT COMPLETED. PT REPORTED BACK PAIN WAS MUCH IMPROVED, REFUSED TO TAKE ANY PAIN MEDS. C/O NAUSEA AND STATED SHE WANTED TO MINIMIZE HER ORAL INTAKE, ESPECIALLY PILLS; GIVEN ZOFRAN WITH HS MEDS; SHE DID NOT HAVE EMESIS. WOULD ONLY USE BEDPAN FOR TOILETING, WILL NEED PT TO GET HER UP TODAY/INCREASE ACTIVITY. SLEPT REST OF NIGHT, NO OTHER CONCERNS, WILL CONTINUE TO MONITOR.
[2018-07-19 05:51] LABS: PROTIME 10.6 Seconds (9.3-11.4)
[2018-07-19 05:54] LABS: CREATININE 0.5 mg/dL (0.6-1.0); MAGNESIUM 1.9 mg/dL (1.8-2.4); POTASSIUM 3.2 mmol/L (3.5-5.1)
[2018-07-19 07:15] VITALS: BP 141/116
--- NOTE | 2018-07-19 08:18 | EKG ---
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: Colin HEARD : 1930 Requested By: Yoni Schreiber Order Number: [id number] MD: Israel Wheeler Measurements Intervals [place] Rate: 57 P: 39 [place]: 160 QRS: 18 QRSD: 86 T: 17 QT: 459 QTc: 447 Interpretive Statements Sinus rhythm Left ventricular hypertrophy Septal infarct, age indeterminate Compared to ECG 06/14/2018 10:44:38 No significant change was found Electronically Signed On 07-19-2018 8:18:08 FUEL CELL ASSEMBLER by Israel Wheeler [email or web address] <ELECTRONICALLY SIGNED> By: Israel Wheeler MD, [facility] 07/19/1818 32 32 Israel Wheeler MD, [facility] /EPI
--- NOTE | 2018-07-19 09:55 | NUR ---
kt visited with pt at bedside, she is a & o x 3, and able to make her needs know. intro to cm, dcp, post acute, and home health. pt reported " live alone in duplex at [facility]. have life alert necklace. no steps, not 1 step. use cane, manage own medication in pill box, most of them are in pill box. been to rehab at [facility]. still drive. do own laundry and cook little. go out to eat. ok if need home health or rehab at [facility]. if feels its needed then ok"/jose alfredo. will cont following as needed for dc needs.
[2018-07-19 11:26] VITALS: BP 141/116
--- NOTE | 2018-07-19 15:36 | NUR ---
FAXED REFERRAL TO [facility] SPOKE TO ZACK IN ADM. AND THEY WILL NOT HAVE A BED TIL SUNDAY. POSS DISCHARGE OVER WEEKEND. WILL F/U WITH [facility] ON SUNDAY IF PT. STILL ADMITTED. DCP TO FOLLOW.
--- NOTE | 2018-07-19 16:32 | NUR ---
PT URINATED 100 CC AND THEN PT WAS BLADDER SCANNED ON MALE SETTING PT HAS HAD HYSTERECTOMY WAS 170 ML FEMALE WAS 206
--- NOTE | 2018-07-19 16:50 | NUR ---
PTRESID[place] IN [place] APARTEMENT AT [facility]. PT HAD BEEN SKILLED AT [facility] IN THE PAST AND IS AGREEABLE TO POST ACUTE CARE STAY THERE IF RECOMMENDED. CARE TEAM IS RECOMMENDING POST ACUTE. [facility] SKILLED IS ABLE TO ACCEPT PT TOMORROW IF SHE IS MEDICALLY STABLE. CHART COPY ORDERED. REPORT TO BE CALLED TO ORDERS WILL NEED TO BE FAXED TO . CONTACT THE FACILITY FOR TRANSPORT IF UNABLE TO ARRANGE CALL [facility] AT .
--- NOTE | 2018-07-19 17:08 | NUR ---
H&P WILL NEED TO BE FAXED TO THE COMMUNTIY ONCE ENTERED AND THERAPY WILL NEED TO SEE PT AND EVALS WILL NEED TO BE FAXED ONCE COMPLETED
[2018-07-19 20:12] VITALS: BP 152/77
[2018-07-19] MEDS ORDERED: METOPROLOL SUCC50 MG PO (23:12)
[2018-07-19] MEDS ORDERED: K-DUR 20 MEQ T20 MEQ PO (23:13)
[2018-07-19] MEDS ORDERED: TRAMADOL 50 MG50 MG PO (23:13)
[2018-07-19] MEDS ORDERED: TYLENOL EXTRA500 MG PO (23:13)
[2018-07-19] MEDS ORDERED: PREDNISONE 10 M10 MG PO ×2 (23:15)
[2018-07-19] MEDS ORDERED: MELATONIN5 M1 PO (23:16)
[2018-07-19] MEDS ORDERED: SYNTHROID25 MC1 PO (23:16)
[2018-07-20] VITALS (7 sets, daily range): BP systolic 134–179; BP diastolic 67–81
--- NOTE | 2018-07-20 04:03 | NUR ---
Assumed care of pt at 1900. Pt alert and oriented x4. c/o lower back pain. States tylenol does not do anything about the pain. Dr notified and new orders noted. Pt refueses any opioids to be given. Fluids dc'd. Possible dc to [facility] in the am. sba to bedside commode. Fall precautions in place. Will continue to monitor.
--- NOTE | 2018-07-20 12:17 | H ---
[facility] [place] [address] HISTORY AND PHYSICAL Name: MARAH BUTTS Room #: 418-P [facility] IN M.R.#: [id number] Admission: 07/18/18 Attend Phys: Yoni Schreiber MD Discharge: Date of : 32 Report #: [id number] THIS REPORT FOR: //name// CC: Yoni Mcdonald MD DATE OF SERVICE: 07/18/2018 CHIEF COMPLAINT: Back pain. HISTORY OF PRESENT ILLNESS: The patient is an 88-year-old female who was at home in her duplex on the morning of admission and was bent over performing some activity at the sink and heard 2 pops and immediately developed low back pain. She did not fall or suffer any trauma. She was able to call for help and was brought to the [facility] Emergency Room at her request for further evaluation and treatment. Workup there failed to reveal any evidence of fracture, but the patient was clearly in a great deal of pain, unable to ambulate safely on her own and is admitted for further evaluation and treatment. I saw her the day prior to this admission because of problems with dizziness and at that time, I took her off of amlodipine and also decreased her metoprolol from 100 mg daily to 50 mg daily. PAST MEDICAL HISTORY: Includes recurrent hemiplegic migraines, severe orthostatic hypotension problems due to adrenal insufficiency. History of polymyalgia rheumatica, chronically treated with prednisone. She has had a pelvic fracture from a fall a couple of years ago. There is a history of osteoporosis. There is diastolic congestive heart failure diagnosed at [facility] about 10 years ago. It has not been clinically significant, otherwise. She has a history of hypothyroidism. She has a history of dysphagia and vocal cord paralysis. She has had aspiration pneumonia in the past. She has diverticulosis and has had diverticulitis in the past. She has a large hiatal hernia. She has mild peripheral neuropathy. She has had problems with recurrent and chronic urinary retention. She has minimal coronary artery disease without myocardial infarction in the past. She has had some depression in the past. She has also had some multifocal atrial tachycardia in the past. MEDICATIONS: At the time of admission include midodrine, prednisone, Florinef, amiodarone, metoprolol, Tylenol, potassium chloride for treatment of hypokalemia, levothyroxine, thiamine for migraine prophylaxis and melatonin. She also takes gabapentin at bedtime every night. ALLERGIES: REPORTED TO MORPHINE AND AMLODIPINE. However, those are both intolerances rather than true allergies. FAMILY HISTORY: Significant for dementia and longevity and stroke. 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 Jose Butts. She is a nonsmoker, nondrinker. REVIEW OF SYSTEMS: Includes recent problems with dizziness and lightheadedness, but no recent falls other than the ones on her left upper extremity with a skin tear on her left elbow at that time. No problems with worsening shortness of breath or chest pain or back pain prior to today's episode. Her bowel and bladder habits are unchanged from baseline. PHYSICAL EXAMINATION: VITAL SIGNS: In the Emergency Room, her temperature was 36.8 degrees centigrade, pulse 64, respirations 16, blood pressure 181/76 supine with pulse oximetry of 100% and reported weight of 120 pounds. GENERAL: The patient is a very pleasant, but clearly uncomfortable elderly white female. HEENT: Extraocular muscles are intact. Oropharynx is moist and pink without lesions or exudate. NECK: Supple. There is no adenopathy or thyromegaly or mass or JVD or bruit. LUNGS: Clear bilaterally. CARDIOVASCULAR: Reveals a distant, but regular rhythm. ABDOMEN: Soft. Bowel sounds are present, no visceromegaly or masses. No left lower quadrant tenderness. The left flank is somewhat tender, but no skin rash, or overt tenderness of the spine. She does have some spasms bilaterally, greater on the left than the right flank in the distal lumbar area. There is some mild tenderness of the left sacroiliac as well. EXTREMITIES: Without cyanosis or clubbing or peripheral edema. She has got some degenerative changes in her hands consistent with osteoarthritis. There is no evidence of effusions. Her peripheral pulses are good in all 4 distal extremities. NEUROLOGIC: The patient is alert. She is fully oriented, no hallucinations, no delusions. She is able to think abstractly with ease and has excellent memory. NEUROLOGIC: Cranial nerves 2-12 are intact. Cranial cerebellar exam: Reveals no Babinski sign on either side. Romberg was not tested. Deep tendon reflexes 2/4 in both patellae and ankles and biceps bilaterally. Generalized motor strength is actually pretty good in the upper extremities and diffusely to the lower extremities; however, she had increased pain with attempts at standing and ambulation and this was not further pursued. She does have good range of motion in both hip joints and both knee joints. She has swan-neck deformities both thumbs bilaterally with thenar atrophy bilaterally. She has stocking distribution sensory deficits in bilateral lower extremities to a mild degree. In the Emergency Room, she had a CBC that showed a white count that was elevated at 15,500, hemoglobin 15.7, hematocrit 45.9 and platelet count of 254,000, red blood cell indices were otherwise normal. Basic metabolic panel showed a sodium 140, potassium 3.4, chloride 102, bicarbonate 29, BUN of 24, creatinine 0.7. The anion gap was 9 and normal. The glucose was 103 nonfasting, calcium was 8.8 [facility] [address] [place] [address] HISTORY AND PHYSICAL Name: MARAH BUTTS Room #: 418-P [facility] IN [facility]#: [id number] Admission: 07/18/18 Attend Phys: Yoni Schreiber MD Discharge: Date of : 32 Report #: [id number] and the estimated GFR was 79. EKG done in the Emergency Room showed a sinus rhythm with left ventricular hypertrophy and age indeterminate septal infarct noted, but no significant change when compared to 06/14/2018 EKG. Urinalysis was basically normal with 2+ blood on dipstick reflected by 3-10 red blood cells per high power field on the microscopic, amorphous phosphates were also noted in a moderate degree in the microscopic evaluation. Specific gravity was 1.015 on the dipstick and the urine was yellow and clear. Radiographically evaluated in the Emergency Room with a CT scan of the lumbar spine that showed degenerative changes, stable L3 compression fracture with prior vertebroplasty noted there. She had bilateral pars defects at L4 and some anterolisthesis of L4 on L5, and L1 and L2 on L2, mildly. The abdominal aorta was atherosclerotic as well. CT of the pelvis showed lumbar scoliosis, degenerative changes as mentioned above. No fractures that was new. Degenerative changes in both hips and symphysis pubis as well as irregularity of the left inferior pubic ramus where she had a previous fracture and sigmoid diverticulosis was noted. ASSESSMENT AND PLAN: 1. Intractable low back pain. Given the patient's history of prior compression fracture and osteoporosis and need for vertebroplasty, I believe the patient would be best served by getting a lumbar spine MRI. Would get Interventional Radiology to see her if the scans reveal evidence of insufficiency fracture. The patient is quite adamant about not wanting narcotics as they make her feel sick and she is eager to avoid complications such as addiction. For now treating with Tylenol after dose of Toradol in the ER that seemed to be somewhat helpful. We will ask Physical and Occupational Therapy to evaluate her. She may benefit from some rehabilitation or [facility] after she is discharged from acute care. 2. Dizziness and presyncope recently. We will continue to monitor this. She just stopped the amlodipine and decreased the metoprolol, so it is a little soon to say if this is going to be of much benefit for her. I will not treat her elevated blood pressures aggressively since she has very well established orthostatic hypotension and aggressive blood pressure lowering carry significant risk for syncope, falls and fractures in this unfortunate patient. 3. 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 Continue current regimen with prednisone and Florinef. 4. Hypothyroidism -- stable. 5. History of diverticulosis, currently asymptomatic. [facility] [address] [place] [address] HISTORY AND PHYSICAL Name: MARAH BUTTS Room #: 418-P ADM IN M.R.#: [id number] Admission: 07/18/18 Attend Phys: Yoni Schreiber MD Discharge: Date of : 32 Report #: [id number] 6. History of dysphagia with unilateral vocal cord paralysis -- stable. 7. Rest of lengthy medical history are reviewed above. <ELECTRONICALLY SIGNED> By: Yoni Schreiber MD 07/20/18 1217 [id number] Yoni Schreiber MD /nt
--- NOTE | 2018-07-20 16:10 | NUR ---
PT ASSESSED AT START OF SHIFT. C/O PAIN IN THE LUMBAR SPINE BUT DECLINING NARCOTIC PAIN MED. CHANGING POSITIONS SLOWLY AND TOLERATING W/ SOME MINIMAL PAIN. DECLINED TO WALK W/ THERAPIST. C/O FEELING DIZZY THIS AM WHICH FELT LESS SO THIS AFTERNOON. ORTHOSTATIC VS CHECKED W/ 20 PT DROP NOTED. PT STATED SOME DIZZINESS BUT BETTER SINCE THE AM. DR. JOSEPH IN AND ORDERS TO TRANSFER PT FOR CARDIAC MONITORING. REPORT GIVEN TO RECEIVING RN AND PT TRANSFERRED TO [facility] PER W/O W/ ALL BELONGINGS.
--- NOTE | 2018-07-20 18:20 | NUR ---
PATIENT ARRIVED FROM 4E 1430 REQUIRING TELE MONITORING. A/OX4, PAIN MANAGED WITH REPOSTIONING AND MEDICATIONS, PT DOES NOT WANT TO TAKE NARCOTICS FOR PAIN. SHE IS REPORTS HAVING DIZZINESS TODAY AND TAKING BP MEDICATION WHICH DR JOSEPH REQUESTED PT TO MOVE TO TELE UNIT FOR CLOSER MONITORING. UP WITH MINIMAL ASSIST. BEDSIDE COMMODE. INDEPEDENT WITH MEALS. SALINE LOCK IV RIGHT FORARM. COMPLIANT WITH CARES. FROM [facility]. MAY DC BACK TO HOME WITH LAKSHMI ARGUELLO. CALL LIGHT IN REACH. BED LOCKED.
[2018-07-21 04:28] VITALS: BP 155/86
--- NOTE | 2018-07-21 05:34 | NUR ---
Pt. c/o back pain and did not want to take the tylenol as she felt she needed something stronger. Dr. Levin on the unit and made aware. See orders.
--- NOTE | 2018-07-21 05:36 | NUR ---
Pt. rested quietly at intervals during the night when checked on during frequent rounds. She c/o back pain and was given pain meds (see emar) with some relief of pain noted. Up to the bedside comode with assistance of one.
[2018-07-21 05:43] LABS: HEMATOCRIT 45.4 % (37.0-47.0); HEMOGLOBIN 15.5 gm/dL (12.0-15.0); MCH 32.5 pg (26.0-34.0); MCHC 34.1 g/dL (28.0-37.0); MCV 95.3 fL (80.0-100.0); RBC 4.77 mil/uL (4.20-5.00); RDW 14.3 % (10.5-14.5); WBC 8.9 thou/uL (4.0-11.0)
[2018-07-21 05:58] LABS: CALCIUM 8.4 mg/dL (8.5-10.1); CREATININE 0.5 mg/dL (0.6-1.0); POTASSIUM 3.3 mmol/L (3.5-5.1)
[2018-07-21 07:02] VITALS: BP 167/69
[2018-07-21 11:43] VITALS: BP 122/58
--- NOTE | 2018-07-21 13:00 | NUR ---
Assumed pt care at 0645. pt is a/ox4 but slow moving due to back pain. no concerns or issues at this time. will continue to monitor
[2018-07-21 15:31] VITALS: BP 147/80
[2018-07-21 20:40] VITALS: BP 187/71
--- NOTE | 2018-07-21 21:56 | EKG ---
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: : 1930 Requested By: Yoni Schreiber Order Number: [id number] : Garth Redd Measurements Intervals [place] Rate: 55 P: 49 [place]: 167 QRS: 11 QRSD: 81 T: 26 QT: 433 QTc: 415 Interpretive Statements Sinus rhythm Consider left atrial enlargement Left ventricular hypertrophy Anterior Q waves, possibly due to LVH Compared to ECG 07/18/2018 18:33:57 Q waves now present Myocardial infarct finding no longer present Electronically Signed On 07-21-2018 21:56:38 [employer] by Garth Redd [email or web address] <ELECTRONICALLY SIGNED> By: Garth Redd MD 07/21/18 2156 1318 1318 Garth Redd MD /[facility]
[2018-07-22 05:30] VITALS: BP 176/95
[2018-07-22 05:43] LABS: CALCIUM 8.7 mg/dL (8.5-10.1); CREATININE 0.6 mg/dL (0.6-1.0); POTASSIUM 4.2 mmol/L (3.5-5.1)
--- NOTE | 2018-07-22 06:30 | NUR ---
Pt. rested at short intervals during the night when checked on during frequent rounds. She c/o chronic back pain ecspecially upon movement. Lidocaine patch applied. Bp was high this am and Dr. Levin called and notified. New orders noted under nrsg. misc. Pt. assisted up to the bedside comode with one assist.
[2018-07-22 08:00] VITALS: BP 192/56
--- NOTE | 2018-07-22 10:59 | NUR ---
Assumed pt care at 0645. pt is a/o x4 with complaints of back pain. [facility]
--- NOTE | 2018-07-22 13:47 | NUR ---
WAS NOTIFIED BY ZACK IN ADM. AT [facility] THAT SHE STILL NEEDED H/P AND MOST RECENT THERAPY PT/OT NOTES FAXED. SPOKE WITH ZACK AND SHE RECEIVED CLINICAL UPDATE. DCP TO FOLLOW.
[2018-07-22 14:41] VITALS: BP 173/72
[2018-07-22 19:42] VITALS: BP 175/86
[2018-07-22] MEDS ORDERED: MOBIC15 MG PO (20:37)
[2018-07-22] MEDS ORDERED: VITAMIN B-1100 M2 PO (20:38)
[2018-07-22] MEDS ORDERED: MIDODRINE HCL 55 M1 PO (20:39)
[2018-07-22] MEDS ORDERED: LIDOPATCH1 EACH TRANSDERM (20:39)
[2018-07-22] MEDS ORDERED: ONDANSETRON HCL4 M1 IV PUSH (20:40)
[2018-07-22] MEDS ORDERED: NEURONTIN 300300 M1 PO (20:40)
[2018-07-22] MEDS ORDERED: PACERONE 200 M200 M1 PO (20:40)
[2018-07-22] MEDS ORDERED: FLORINEF ACETA0.1 MG PO (20:41)
--- NOTE | 2018-07-23 02:57 | NUR ---
Pt transferred from 4W at shift change,A/OX4 with forgetfulness noted.Up with Ax1/GB to [facility],states she uses a cane at home but not here,also reported that she cannot walk because of back pain. Only c/o back pain with movement and declined need for pain medication.Reports no BM since adm,BS hypoactive. here at ,order written for MOM and Dulcolax supp in AM if no results from MOM pt updated on the order and med administered before bedtime. Has a skin tear on Left forearm with a dressing on states it was from a dog scratch at the facility she resides at. Call ligght/personal items placed within reach and pt calling approp for assistance.
[2018-07-23 06:42] VITALS: BP 137/81
[2018-07-23 07:45] VITALS: BP 171/85
--- NOTE | 2018-07-23 10:58 | NUR ---
PATIENT CARE IS ASSUMED AT 0715.PATIENT IS ALERT AND ORIENTED X4.PATIENT HAS PAIN IN HER BACK, WILL GIVE PAIN MEDS WITH MORNING MEDS AND SEE IF PATIENT IS ABLE TO HAVE ADDITIONAL PAIN MEDS AND SOMETHING FOR BM.PATIENT IS ABLE TO MOVE TO [facility] X1 ASSIST.B/P IS ELEVATED WILL GIVE B/P MEDICATION.CALL LIGHT, PHONE, AND PERSONAL BELONGINGS ARE WITHIN REACH.WILL CONTINUE TO MONITOR PATIENT.
[2018-07-23 11:00] VITALS: BP 112/64
--- NOTE | 2018-07-23 15:21 | NUR ---
dp sent Laure/Peyton Johnson updated OT notes from today. DP texted Adela to let her know. DP to follow up.
[2018-07-23 21:03] VITALS: BP 151/83
--- NOTE | 2018-07-24 03:44 | NUR ---
Pt A/OX4,with some forgetfulness. Up with SBA to BSC.Denies pain on assessment states only hurts with movement. Pt stated she would like to dc home in the morning informed that all depends on what time the Dr. alvarez to see her. VSS. Resting quietly with eyes closed no distress noted. Call light/personal items within reach.
[2018-07-24 06:02] VITALS: BP 173/71
[2018-07-24 06:50] LABS: HEMOGLOBIN 16.6 gm/dL (12.0-15.0); MCH 32.3 pg (26.0-34.0); MCHC 33.2 g/dL (28.0-37.0); MCV 97.3 fL (80.0-100.0); PLATELET COUNT 282 thou/uL (150-400); RBC 5.14 mil/uL (4.20-5.00); RDW 14.6 % (10.5-14.5); WBC 9.7 thou/uL (4.0-11.0)
[2018-07-24 07:03] LABS: ALBUMIN 3.3 g/dL (3.4-5.0); CREATININE 0.8 mg/dL (0.6-1.0); POTASSIUM 4.3 mmol/L (3.5-5.1); TOTAL BILIRUBIN 0.7 mg/dL (<0.1-1.0); TOTAL PROTEIN 6.9 g/dL (6.4-8.2)
[2018-07-24 08:30] LABS: URINE CLARITY CLEAR; URINE COLOR YELLOW; URINE PROTEIN (DIPSTICK) NEGATIVE (Negative)
[2018-07-24 08:31] LABS: URINE BILIRUBIN NEGATIVE (Negative); URINE BLOOD 1+ (Negative); URINE GLUCOSE-RANDOM* NEGATIVE (Negative); URINE KETONES NEGATIVE (Negative); URINE LEUKOCYTES-REFLEX NEGATIVE (Negative); URINE NITRITE-REFLEX NEGATIVE (Negative); URINE UROBILINOGEN 0.2 E.U./dl (0.2-1.0)
[2018-07-24 08:34] LABS: ABSOLUTE NEUTROPHILS 6.4 thou/uL (1.4-8.2); ANISOCYTOSIS 1+; METAMYELOCYTES 1 %; MYELOCYTES 1 %
[2018-07-24 08:50] VITALS: BP 154/66
[2018-07-24 09:05] LABS: CASTS None Seen /LPF (None Seen); MUCUS 0-3 Light strn/LPF (None Seen); SQUAMOUS 0-3 Few /LPF (0-3); URINE WBC-REFLEX 0-5 Rare /HPF (0-5)
[2018-07-24 09:06] LABS: BACTERIA-REFLEX 1-9 Few /HPF (None Seen); CRYSTALS None Seen /LPF (None Seen); URINE RBC 0-2 Rare /HPF (0-2)
--- NOTE | 2018-07-24 11:06 | NUR ---
Assess for length of stay. Chart reviewed. Wts are stable close to usual trends 115-120 lb past year. Had been constipated, noted BM on 07/23. Possible discharge soon. Low nutrition risk
--- NOTE | 2018-07-24 16:01 | NUR ---
dp contacted [facility] and spoke with Adela, to let them know patient is short of breath, we can plan for dc tomorrow if patient improves. I
[2018-07-24 16:31] LABS: HCO3 25.1 mmol/L (22.0-26.0); PCO2 35.1 mmHg (35.0-45.0); PO2 74.7 mmHg (80.0-100.0); pH 7.473 (7.360-7.450); sO2 95.9 % (92.0-98.0)
[2018-07-24 18:12] VITALS: BP 154/88
--- NOTE | 2018-07-24 19:29 | NUR ---
ASSUMED CARE OF PATIENT AT 0715, PATIENT ALERT AND ORIENTED, BUT FORGETFUL. PATIENT UP WITH ASSIST X 1. PATIENT C/O PAIN WITH BACK AREA, PATIENT RECEIVED TYLENOL 500 MG THIS SHIFT, ALSO APPLIED LIDOCAINE PATICH TO BACK AREA. PHYSICAL THERAPY STATED PATIENT HAD SOA WHEN AMBULATING, SATS GREATER THAN 90%. DR JOSEPH HERE LATE THIS AFTERNOON, THIS RN REPORTED THE SOA WHEN PATIENT AMBULATING. DR JOSEPH ORDERED CXR, BLOOD GAS, AND CT SCAN OF CHEST, DR JOSEPH THINKS POSSIBLE PE, NOTIFY PER DIEM PHYSICAL THERAPIST ASSISTANT OF CT SCAN RESULT.THIS RN ATTEMPTED 20G, UNABLE TO GET ACCESS. REPORTED TO THE NIGHT NU/VERONIQUE WHO WILL TRY TO GET ACCESS. NOTIFIED HOUSE CANDIDO/CONCETTA AND CALLED IV TEAM NO RETURN CALL. JAIR T HAS LEFT FOREARM IV 22G, PATIENT NEEDS 20G. WILL CONTINUE TO MONITOR. MONITOR
--- NOTE | 2018-07-24 20:48 | NUR ---
Assumed pt care @ 191,pt needed an IV for CT. Attempted X2,able to start one on Left AC 20". Chest CT done at this time and negative for PE,has basilar atelectasis notified no new orders given. Pt updated as well and encouraged to do deep breathing exercises. Resting quietly in bed with no distress at this time.
--- NOTE | 2018-07-25 04:18 | NUR ---
Pt A/OX4,forgetful. Up with Ax1 to BSC.Denies pain while laying still only during movement. VSS.Pt had an episode of urine incontinence up to use BSC and had a medium hard formed BM.Encouraged to increase fluid intake and possibly drink prune juice everyday as well as get up more OOB verbalizes understanding stating she will try to do as recommended. Resting quietly eyes closed at this time.will continue to monitor pt.Call light/personal items placed within reach.
[2018-07-25 05:37] VITALS: BP 160/82
[2018-07-25 08:00] VITALS: BP 148/77
--- NOTE | 2018-07-25 08:00 | NUR ---
PATIENT CARE WAS ASSUMED AT 0715.PATIENT IS ALERT AND ORIENTED X4.PATIENT HAS NO COMPLAINS OF PAIN AT THIS TIME.PATIENT IS ABLE TO TRANSFER TO CHAIR OR BSC.IV IS INTACT SALINE LOCKED.VITALS ARE STABLE.CALL LIGHT, PHONE, AND PERSONAL BELONGINGS ARE WITHIN REACH.WILL CONTINUE TO MONITOR PATIENT.
--- NOTE | 2018-07-25 14:12 | NUR ---
DISCHARGE ORDERS RECEIVED. PATIENT DISCHARGING TO [facility]. CHART COPIED PER MOTION PICTURE CAMERA OPERATOR. ORDERS FAXED TO [facility] ADMISSIONS, VERIFIED RECEIVED. CALL RECEIVED FROM [facility], TRANSPORTATION SET UP FOR 1530 HOURS. DAUGHTER YARI NOTIFIED AND AGREEABLE TO ALL. UNIT RN NOTIFIED AND CONTACT NUMBER PROVIDED FOR REPORT. UNIT CM/SW AWARE.
--- NOTE | 2018-07-25 16:46 | NUR ---
PATIENT WAS DISCHARGED TO GO TO [facility].PT WAS PICKED UP VIA W/C.PAPERWORK WAS GIVEN TO TRANSPORTATION.IV WAS TAKEN OUT GAUZE WAS PLACED.PT WAS STABLE UPON D/C.REPORT WAS GIVN TO NURSE TAKING PATIENT AT [facility].
--- NOTE | 2018-07-26 11:53 | D ---
[facility] [place] [address] DISCHARGE SUMMARY Name: MARAH BUTTS Room #: 223-P [facility] IN ..#: [id number] Admission: 07/18/18 Attend Phys: Yoni Schreiber MD Discharge: 07/25/18 Date of : 32 Report #: [id number] THIS REPORT FOR: //name// CC: Peyton Schreiber DATE OF SERVICE: 07/25/2018 HOSPITAL COURSE: The patient is an 88-year-old female who presented with severe back pain and an associated fall and a left elbow skin tear, was admitted for further evaluation and treatment. She has an extensive past history of orthostatic hypotension and prior to that hypertension. She was found to be taking her amlodipine, which has been discontinued in the past as well as the metoprolol and amiodarone, which she takes for treatment of multifocal atrial tachycardia. The amlodipine was discontinued and the dizziness improved somewhat. The patient was subsequently given tramadol for treatment of her pain, as she is intolerant of narcotics. This unfortunately made her very dizzy for several days and was rapidly discontinued and the problem resolved. The patient has been maintained on midodrine as well as supplemental prednisone and Florinef for quite some time prior to this admission in order to prevent the hypotensive episodes. To my dismay, I unfortunately kept finding occurrences where the house staff would hold doses because her blood pressure, supine, was adequate instead of treating her with the medication so as to prevent the orthostatic problems that came later. For the patient's immediate safety that her midodrine be continued 3 times per day and not be held simply because the patient has elevated supine or seated blood pressure readings. Rather if the medication is ever to be withheld, it is in circumstances where blood pressure is significantly elevated both standing and reclining. I have explained this to the patient at length and advised her to be sure and ask staff about when changes are made intermittently in her prescribed regimen when she goes to a group home unit. The patient is being discharged to [facility], which is across the street from her home on that same campus. She will be needing physical and occupational therapy. Her pain is being controlled with nonsteroidal anti-inflammatory plus Tylenol plus topical lidocaine in addition to the anti-inflammatory effect of her daily prednisone doses. It is my sincere hope that she will be able to get off of the nonsteroidal anti-inflammatories as the left sacroiliitis related pain improves and hopefully resolve. In the event it does not, the patient has requested a consultation with a paint preparer, Dr. Tanmay Mcdonald at [facility]. [address] [address] DISCHARGE SUMMARY Name: MARAH BUTTS Room #: 223-P [facility].#: [id number] Admission: 07/18/18 Attend Phys: Yoni Schreiber MD Discharge: 07/25/18 Date of : 32 Report #: [id number] DISCHARGE DIAGNOSES: 1. Left lower back pain with sacroiliitis due to #2. 2. Fall. 3. Gait disturbance secondary to the back pain. 4. Severe orthostatic hypotension. 5. Multifocal atrial tachycardia history. 6. Hypothyroidism. 7. 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 8. Diverticulosis history. 9. Osteoarthritis, multiple sites. 10. Osteoporosis. 11. Adrenal insufficiency. 12. Polymyalgia rheumatica history. DISCHARGE MEDICATIONS: Prednisone 10 mg by mouth every morning and 5 mg by mouth every afternoon, Florinef 0.1 mg by mouth daily, metoprolol XL 50 mg by mouth daily, Tylenol 500 mg 2 tablets by mouth every 8 hours as needed for pain, lidocaine patch applied 12 hours out of 24 daily, potassium chloride 20 mEq by mouth twice daily for hypokalemia, levothyroxine 25 mcg by mouth daily, melatonin 5 mg by mouth nightly x 30 days only, thiamine 100 mg by mouth nightly for migraine prophylaxis, gabapentin 300 mg by mouth nightly, amiodarone 200 mg by mouth daily and midodrine 5 mg by mouth 3 times daily. The patient had a CT scan and MRI of her lumbar spine and CT of the pelvis, there was no evidence of acute fractures during this hospitalization. DISCHARGE INSTRUCTIONS: The patient will be discharged to group home unit at [facility] and I plan to see her in followup after she is discharged from [facility]. <ELECTRONICALLY SIGNED> By: Yoni Schreiber MD 07/26/18 1153 1126 1149 Yoni Schreiber MD /nt
== END 2018-07-25 16:30 | DRG 552 ==
LOC: ER 10:56 → 4E 13:16 → SICU 13:16 → EROBS 13:16 → 4E 15:16 → 4W 07-20 16:30 → SICU 07-22 18:55
PROVIDERS: Internal Medicine; Physician Assistant; ADMIT Internal Medicine
DX: M46.1 Sacroiliitis, not elsewhere classified (principal); E27.40 Unspecified adrenocortical insufficiency; M81.0 Age-related osteoporosis without current pathological fracture; F32.9 Major depressive disorder, single episode, unspecified; I50.9 Heart failure, unspecified; K21.9 Gastro-esophageal reflux disease without esophagitis; I25.10 Atherosclerotic heart disease of native coronary artery without angina pectoris; E03.9 Hypothyroidism, unspecified; M19.90 Unspecified osteoarthritis, unspecified site; G62.9 Polyneuropathy, unspecified; I27.20 Pulmonary hypertension, unspecified; E87.6 Hypokalemia; K59.00 Constipation, unspecified; I11.0 Hypertensive heart disease with heart failure; I95.1 Orthostatic hypotension; J38.01 Paralysis of vocal cords and larynx, unilateral; K57.90 Diverticulosis of intestine, part unspecified, without perforation or abscess without bleeding; G43.909 Migraine, unspecified, not intractable, without status migrainosus; Z86.73 Personal history of transient ischemic attack (TIA), and cerebral infarction without residual deficits; Z87.81 Personal history of (healed) traumatic fracture; Z88.6 Allergy status to analgesic agent; Z88.8 Allergy status to other drugs, medicaments and biological substances; Z90.710 Acquired absence of both cervix and uterus; Z81.8 Family history of other mental and behavioral disorders; Z82.3 Family history of stroke; Z79.52 Long term (current) use of systemic steroids
CPT/HCPCS: 10045; 10084; 15002

== ENCOUNTER 2018-08-15 09:04 | Inpatient (IN) | payer OTHER ==
[~2018-08-15] VITALS: Ht 154.9 cm; Wt 49.0 kg
--- NOTE | ~2018-08-15 | HC ---
[facility] [place] [address] CONSULTATION Name: MARAH BUTTS Room #: 224-P [facility] IN .R.#: [id number] Admission: 08/15/18 Attend Phys: Yoni Schreiber MD Discharge: Date of : 32 Report #: [id number] THIS REPORT FOR: //name// CC: Yoni Schreiber DATE OF SERVICE: 08/22/2018 HISTORY OF PRESENT ILLNESS: The patient is an 88-year-old white female, readmitted to [facility] after being at [facility]. She was admitted with left lower lobe pneumonia, noted to have oropharyngeal dysphagia, hypertension, and has left sacroiliitis with lumbar radiculopathy. We have been consulted regarding rehabilitation issues. PAST MEDICAL HISTORY: Includes oropharyngeal dysphagia due to a paralyzed vocal cord and has had prior aspiration pneumonia. She has a history of orthostatic hypotension, hypothyroidism, and polymyalgia rheumatica. She has chronic diastolic congestive heart failure. MEDICATIONS: Please see the medication listing. This includes vitamins, herbals, and supplements per report. SOCIAL HISTORY: She is , had been living in a duplex 1 level, although she was most recently admitted from the intermediate facility. HABITS: No history of tobacco or alcohol abuse. REVIEW OF SYSTEMS: No complaints of chest pain, current shortness of breath, and abdominal discomfort. She has the left lower extremity pain with the sacroiliitis, which has been a problem slowing her functional mobility. No other focal extremity pain complaints. PHYSICAL EXAMINATION: GENERAL: She is an 88-year-old white female, small statured slender, no obvious distress. The patient is alert. She is pleasant. VITAL SIGNS: Last recorded temperature 97.5, pulse 67, respirations 18, blood pressure 153/73. HEENT: Appeared to be benign. NEUROLOGIC: Cranial nerves grossly intact. Facies are symmetric. EXTREMITIES: She has functional range of motion of both upper extremities. Strength is grade 4-/5. DTRs are trace. Lower extremities, no focal calf swelling. Tends to favor that left lower extremity, some. Strength is probably grade 3+/5 to 4-/5, right lower extremity is more of a grade 4+ to 4/5. Tone appeared to be intact. She is mod assist with sit to stand. Gait is 80 feet min assist with a front-wheeled walker. ASSESSMENT: An 88-year-old white female with the following problem list: [address] [address] CONSULTATION Name: MARAH BUTTS Room #: 224-P [facility] IN [facility]#: [id number] Admission: 08/15/18 Attend Phys: Yoni Schreiber MD Discharge: Date of : 32 Report #: [id number] 1. Left lower lobe pneumonia. 2. Left sacroiliitis with lumbar radiculopathy. 3. 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 4. Hypertension with history of orthostatic hypotension. 5. Chronic urinary retention. PLAN: The patient came from the intermediate facility and I note that her insurance episcopal has already been contacted and are in the process of trying to obtain authorization for another intermediate facility stay. At this point, I would feel that that would be reasonable and would not attempt authorization for an acute [address] [place] [address] inpatient rehabilitation stay as well. In summary, I would be in agreement with the patient going for a intermediate facility stay as she further medically stabilizes and once insurance approves. Thank you for asking us to assist in this patient's care. We will be glad to follow along with you for the remainder of her care. By: 1315 [id number] Collins Forbes MD /[facility]
[~2018-08-15 09:04] MED LIST changes: +MELATONIN5 M1 PO; +MOBIC15 MG PO; +SYNTHROID25 MC1 PO
[2018-08-15 09:24] VITALS: BP 134/72
[2018-08-15 10:04] LABS: HEMATOCRIT 48.9 % (37.0-47.0); HEMOGLOBIN 16.9 gm/dL (12.0-15.0); MCH 32.7 pg (26.0-34.0); MCHC 34.5 g/dL (28.0-37.0); MCV 94.7 fL (80.0-100.0); PLATELET COUNT 272 thou/uL (150-400); RBC 5.16 mil/uL (4.20-5.00); WBC 18.3 thou/uL (4.0-11.0)
[2018-08-15 10:24] LABS: ANION GAP 11 mmol/L (7-16); BUN 17 mg/dL (7-18); CALCIUM 8.7 mg/dL (8.5-10.1); CHLORIDE 96 mmol/L (98-107); CO2 28 mmol/L (21-32); CREATININE 0.9 mg/dL (0.6-1.0); GLUCOSE 103 mg/dL (74-106); SODIUM 135 mmol/L (136-145)
[2018-08-15 10:26] LABS: POTASSIUM 2.9 mmol/L (3.5-5.1)
[2018-08-15 10:30] LABS: TROPONIN-I <0.06 ng/mL (<0.06)
[2018-08-15 11:04] LABS: ABSOLUTE NEUTROPHILS 15.7 thou/uL (1.4-8.2)
[2018-08-15 11:26] LABS: URINE BILIRUBIN NEGATIVE (Negative); URINE BLOOD 2+ (Negative); URINE CLARITY CLOUDY; URINE COLOR YELLOW; URINE GLUCOSE-RANDOM* NEGATIVE (Negative); URINE KETONES NEGATIVE (Negative); URINE LEUKOCYTES-REFLEX 2+ (Negative); URINE NITRITE-REFLEX POSITIVE (Negative); URINE PROTEIN (DIPSTICK) 1+ (Negative); URINE UROBILINOGEN 0.2 E.U./dl (0.2-1.0)
[2018-08-15 11:37] LABS: BACTERIA-REFLEX >30 Many /HPF (None Seen); CASTS None Seen /LPF (None Seen); CRYSTALS None Seen /LPF (None Seen); SQUAMOUS None Seen /LPF (0-3); URINE RBC 3-10 Few /HPF (0-2); WBC CLUMPS Few (None Seen)
[2018-08-15 11:52] LABS: BE(vivo) 1.5 mmol/L (-2 to +3); HCO3 24.6 mmol/L (22.0-26.0); PCO2 34.8 mmHg (35.0-45.0); PO2 57.4 mmHg (80.0-100.0); pH 7.468 (7.360-7.450); sO2 91.7 % (92.0-98.0)
[2018-08-15 12:44] VITALS: BP 152/62
[2018-08-15 12:47] VITALS: BP 164/84
[2018-08-15 14:00] VITALS: BP 173/91
--- NOTE | 2018-08-15 14:49 | NUR ---
ASSESSMENT-PT LIVES IN A [place] [facility] WHICH SHE SAYS IS LIKE A DUPLEX. PT CURRENTLY IS IN THE REHAB SECTION AT [facility] RECEIVING THERAPIES AND PLANS TO RETURN BACK THERE ONCE MEDICALLY STABLE. PT NEEDS ASSIST WITH ADLS PRESENTLY. PT USUALLY GETS AROUND WITH A CANE BUT REQUIRES WALKER AND WC NOW. FOLLOWING TO ASSIST WITH DC PLANNING.
--- NOTE | 2018-08-15 15:25 | EKG ---
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 : 1930 Requested By: Magnus Pozo Order Number: [id number] MD: Garth Redd Measurements Intervals [place] Rate: 75 P: 23 [place]: 160 QRS: 8 QRSD: 80 T: 7 QT: 382 QTc: 427 Interpretive Statements Sinus rhythm Atrial premature complex Left ventricular hypertrophy Anterior Q waves, possibly due to LVH Compared to ECG 07/20/2018 13:18:31 Atrial premature complex(es) now present Electronically Signed On 08-15-2018 15:25:37 BROADCAST CHIEF ENGINEER by Garth Redd [email or web address] <ELECTRONICALLY SIGNED> By: Garth Redd MD 08/15/18 1525 1019 1019 Garth Redd MD /[facility]
[2018-08-15] MEDS ORDERED: LIDODERM1 EACH TRANSDERM (15:33)
[2018-08-15 20:06] VITALS: BP 191/94
--- NOTE | 2018-08-16 00:31 | NUR ---
pt is alert and oriented x 4,needs one person assist with adls,denies pain at this time, on oxygen at 2l/nc at hs,uses bedpan,continent of bowel and bladder,last bm 08/15 continues of ivf,personal items within reach,able to make needs known.
[2018-08-16 06:44] LABS: ABSOLUTE NEUTROPHILS 10.5 thou/uL (1.4-8.2); BASOPHILS 0.1 % (0.0-2.0); EOSINOPHILS 0.3 % (0.0-3.0); HEMATOCRIT 44.8 % (37.0-47.0); HEMOGLOBIN 15.1 gm/dL (12.0-15.0); LYMPHOCYTES 11.4 % (24.0-44.0); MCH 32.3 pg (26.0-34.0); MCHC 33.8 g/dL (28.0-37.0); MCV 95.5 fL (80.0-100.0); MONOCYTES 3.3 % (1.0-8.0); PLATELET COUNT 256 thou/uL (150-400); POLYS 84.9 % (36.0-66.0); RBC 4.69 mil/uL (4.20-5.00); RDW 14.4 % (10.5-14.5); WBC 12.3 thou/uL (4.0-11.0)
[2018-08-16 06:59] LABS: ALBUMIN 2.6 g/dL (3.4-5.0); CALCIUM 8.3 mg/dL (8.5-10.1); CREATININE 0.6 mg/dL (0.6-1.0); DIRECT BILIRUBIN 0.2 mg/dL (<0.1-0.3); TOTAL BILIRUBIN 0.6 mg/dL (<0.1-1.0)
[2018-08-16 07:46] VITALS: BP 152/84
--- NOTE | 2018-08-16 10:10 | NUR ---
SW reviewed chart and spoke with nursing. Pt was transferred to [facility] from . Pt admitted from [facility]. Will need therapy evals and insurance authorization for pt to return to [facility]. process planner to fax clinical info to [facility] for review. MARYAN is following to assist as needed with discharge planning.
--- NOTE | 2018-08-16 11:22 | NUR ---
ASSUMED CARE OF PATIENT THIS MORNING. PATIENT IS A&OX4. SHE IS UP WITH 1 ASSIST WHEN AMBULATING, VOIDS PER BEDSIDE COMMODE. PATIENT HAS STRESS INCONTINENCE AT TIMES AND WEARS A BRIEF. SHE HAS COARSE AND DIMINISHED BREATH SOUNDS. SHE HAS ACTIVE BOWEL SOUNDS LAST BOWEL MOVEMENT WAS THIS MORNING, SMALL FORMED STOOL. DOES NOT CURRENTLY COMPLAIN OF ANY PAIN. PATIENT'S DIET WAS CHANGED AFTER MORNING VIDEO SWALLOW TO A REGULAR DIET BUT SPEECH THERAPIST RECOMMENDED A MECHANICAL SOFT CHOPPED DIET FOR EASIER DIGESTION . MEDICATION IS TO BE TAKEN EMBEDDED IN APPLE SAUCE. PATIENT IS CURRENTLY LYING IN BED WITH CALL LIGHT WITHIN REACH. FALL PRECAUTIONS IN PLACE.
--- NOTE | 2018-08-16 15:20 | H ---
[facility] [place] [address] HISTORY AND PHYSICAL Name: MARAH GUZMAN Room #: 224-P [facility] IN ..#: [id number] Admission: 08/15/18 Attend Phys: Yoni Schreiber MD Discharge: Date of : 32 Report #: [id number] THIS REPORT FOR: //name// CC: Yoni Shcreiber DATE OF SERVICE: 08/15/2018 CHIEF COMPLAINT: Malaise. HISTORY OF PRESENT ILLNESS: The patient is an 88-year-old white female who was recently hospitalized for problems related to back pain and debility after a fall at home. At last discharge, she was sent to [facility] to the geriatric skilled care unit. She did well with her care there and she was eventually transferred for continuing weakness to assisted living unit after the correction unit care. Actually that transfer was supposed to happen today, instead because of the patient having a creeping illness last several days and it became worse last night and she claims she only slept half an hour last night, she was thus sent to the Emergency Room for further evaluation and treatment today. She reports that she has been having a significant cough and feels short of breath at rest. She also has a slight headache. She was told in the Emergency Room she had a urinary tract infection as well. PAST MEDICAL HISTORY: Please see old chart. She has a history of oropharyngeal dysphagia due to a paralyzed vocal cord and she has had aspiration pneumonia in the past. She also has a history of orthostatic hypotension for which she takes steroids and midodrine. She has hypothyroidism and takes thyroid replacement hormones. She has a history of polymyalgia rheumatica and has adrenal insufficiency secondary to chronic steroid use. She has no code blue status as per our discussion. She has chronic diastolic congestive heart failure. MEDICATION: Regimen is as follows: She takes potassium chloride 20 mEq by mouth twice a day for chronic hypokalemia. She uses a lidocaine patch daily for 12 hours for low back pain, amiodarone 200 mg daily for treatment of multifocal atrial tachycardia in the past and prevention of it at present, p.r.n. tramadol for pain. Melatonin 5 mg nightly for insomnia. Meloxicam 15 mg by mouth daily for osteoarthritis. Midodrine 5 mg by mouth 3 times a day and thiamine 100 mg by mouth daily for migraine prophylaxis. SOCIAL HISTORY: She is from [place] [place] Gu[facility] about 3 years ago. She has 5 grown children and numerous grandchildren. She is pretty much a lifelong nonsmoker and has no other vices. REVIEW OF SYSTEMS: The patient reports a slight headache, chest congestion, productive cough with clear mucus and generalized malaise. A 14-point review is otherwise negative. [address] [address] HISTORY AND PHYSICAL Name: MARAH GUZMAN Room #: 224-P ADM IN M.R.#: [id number] Admission: 08/15/18 Attend Phys: Yoni Schreiber MD Discharge: Date of : 32 Report #: [id number] PHYSICAL EXAMINATION: The patient's vital signs on arrival today showed a temperature of 36.5 degrees centigrade, pulse 85, respirations 19 per minute, blood pressure 134/72 with an oxygen saturation of 92% on room air. Subsequent to my conversation with the Emergency Room physician's processing assistant, we obtained a blood gas that showed a pH of 7.468 slightly elevated, pCO2 of 34.8, slightly depressed, pO2 of 57.4 on room air, significantly depressed. Lactic acid levels in the blood gas of 1.05 and normal. Urinalysis shows some slight pyuria and clumps of white blood cells. NT-proBNP is elevated at 1562, which is significantly elevated compared to one she had in the last month. Her magnesium level was normal at 1.9. Lactic acid from a venous specimen was 2.4 and elevated. Sodium 135, potassium 2.9, chloride 96, bicarbonate of 28, BUN of 17, creatinine 0.9, anion gap 11, estimated GFR of 59. CBC showed white count of 18,300, hemoglobin 16.9, hematocrit 48.9, platelets of 272,000. Red cell indices were fairly normal. The manual differential suggested a slight left shift with 84% segs, 2% bands, 11% lymphs, 3% monos, no eos or basophils, and the absolute neutrophil count was 15,700, on oral steroids at home. Urine culture is pending at the time of admission. Chest x-ray done at the time of admission suggests no acute infiltrates, only large hiatal hernia again demonstrated. ASSESSMENT AND PLAN: 1. Aspiration pneumonia. We will start the patient on IV antibiotics and get breathing treatments and have Speech Therapy see her. She will be on an altered diet to help minimize risk of aspiration. All the workup is in progress. 2. Oropharyngeal dysphagia. As mentioned before, we will have the speech therapist see her. 3. History of unilateral paralyzed vocal cord. 4. Orthostatic hypotension, which is severe with history of falls. 5. Hypothyroidism. 6. History of polymyalgia rheumatica with adrenal insufficiency due to chronic steroid use. 7. Recent hospital stay for unrelated back pain due to a fall at home. 8. Code status is do not resuscitate. <ELECTRONICALLY SIGNED> By: Yoni Schreiber MD 08/16/18 1520 1613 1647 Yoni Schreiber MD /cristy
[2018-08-16 18:16] VITALS: BP 146/77
--- NOTE | 2018-08-17 05:52 | NUR ---
ASSUMED CARE OF PATIENT AT 1900. VSS. ASSESSMENT COMPLETED AT 2029 AND IS DOCUMENTED. HS MEDS GIVEN WHOLE IN APPLESAUCE. PT TOLERATED WELL WITH NO S/S OF ASPIRATION NOTED. RIGHT HAND PIV PATENT AND SALINE LOCKED. AT APPROXIMATELY 0415, PT C/O INABILITY TO URINATE. BLADDER WAS DISTENDED UPON PALPATION. BLADDER SCAN INDICATED 350 ML URINE IN BLADDER. PT WAS ASSISTED TO BSC TO ATTEMPT TO URINATE, BUT WAS UNSUCCESSFUL. BLADDER SCAN AFTER URINATION ATTEMPT SHOWED [address] JOSEPH NOTIFIED AND ORDER RECEIVED TO INSERT NAQVI CATHETER. ALSO ORDERED FLOMAX 0.4MG PO NO AND 0.4MG PO @ HS STARTING 08/17. NAQVI CATHETER INSERTED WITHOUT COMPLICATION. 500 ML URINE DRAINED. FLOMAX GIVEN PER ORDERED. PT STATED THAT "SHE FELT BETTER" AFTER NAQVI INSERTION. PT CURRENTLY RESTING SOUNDLY IN BED, IN NO ACUTE DISTRESS. CALL LIGHT WITHIN REACH. BED LOCKED AND IN LOWEST POSITION. WCTM.
--- NOTE | 2018-08-17 06:00 | NUR ---
THIS NURSE AGREES WITH ASSESSMENT AND NOTES OF KIL[employer] CAR REPAIRER DURING THE NIGHT.
[2018-08-17 06:51] LABS: CALCIUM 8.5 mg/dL (8.5-10.1); CREATININE 0.6 mg/dL (0.6-1.0); MAGNESIUM 2.1 mg/dL (1.8-2.4); POTASSIUM 3.5 mmol/L (3.5-5.1)
[2018-08-17 07:51] VITALS: BP 148/79
--- NOTE | 2018-08-17 07:56 | NUR ---
ASSUMED PT CARE AT 0700. ASSESSMENT COMPLETE AND IS CHARTED. VSS. O2 93% ON ROOM AIR. PT REPORTS NO OXYGEN AT HOME. WILL CONTINUE TO MONITOR ROOM AIR SAT. PT IS AWAKE, ALERT/ORIENTED X4. REPORTS PAIN RATED 5/10 IN HER BACK FOR WHICH SHE REFUSES PAIN MEDICATION AT THIS TIME. LOOSE COUGH NOTED. PT REPORTS IT IS NON-PRODUCTIVE. NAQVI TO DD DRAINING CLEAR YELLOW URINE. INSTRUCTED PT THAT SHE CAN HAVE REGULAR LIQUIDS BUT NO STRAW. PT VERBALIZES UNDERSTANDING. ALL STRAWS REMOVED FROM BEDSIDE. WILL CONTINUE CURRENT CARE.
--- NOTE | 2018-08-17 15:37 | NUR ---
PT PLACED BACK ON O2 BY RT WHO FOUND SAT TO BE UPPER 80'S ON ROOM AIR. PT NOW ON 1L O2. MOIST COUGH STILL NOTED BUT IS NON-PRODUCTIVE. WILL CONTINUE WITH CURRENT CARE.
[2018-08-17 19:45] VITALS: BP 153/78
--- NOTE | 2018-08-18 02:44 | NUR ---
ASSUMED CARE OF PATIENT AT 1900. VSS. ASSESSMENT COMPLETED AT 2020 AND IS DOCUMENTED. NAQVI CATHETER PATENT WITH YELLOW URINE DRAINING. PT EXPRESSED CONCERNS ABOUT CONSTIPATION. STATES SHE HAD A VERY SMALL BM ON 08/16, BUT HAS NOT HAD ANY SINCE MOVING TO THIS UNIT. ABD FLAT, SOFT, NONTENDER. RIGHT WRIST PIV PATENT AND SALINE LOCKED. PT CURRENTLY SLEEPING SOUNDLY IN BED, IN NO ACUTE DISTRESS. CALL LIGHT WITHIN REACH. BED LOCKED AND IN LOWEST POSITION. WCTM.
--- NOTE | 2018-08-18 05:50 | NUR ---
THIS NURSE AGREES WITH ASSESSMENT AND NOTES FROM [facility] HISTORY PROFESSOR ON THIS PATIENT.
[2018-08-18 07:45] VITALS: BP 154/77
[2018-08-18 19:59] VITALS: BP 171/103
--- NOTE | 2018-08-19 04:20 | NUR ---
PATIENT ALERT AND ORIENTED X4. HAS NAQVI WITH YELLOW URINE. C/O BACK PAIN BUT AT TIME OF ASSESSMENT DID NOT WANT ANYTHING FOR IT. RATED PAIN A 3. SLEPT MOST OF NIGHT.
[2018-08-19 06:42] LABS: HEMATOCRIT 40.1 % (37.0-47.0); HEMOGLOBIN 13.8 gm/dL (12.0-15.0); MCH 32.8 pg (26.0-34.0); MCHC 34.4 g/dL (28.0-37.0); MCV 95.6 fL (80.0-100.0); RBC 4.2 mil/uL (4.20-5.00); RDW 14.2 % (10.5-14.5); WBC 8.2 thou/uL (4.0-11.0)
[2018-08-19 07:58] VITALS: BP 157/89
--- NOTE | 2018-08-19 08:03 | NUR ---
ASSUMED PT CARE AT 0700. ASSESSMENT COMPLETE AND IS CHARTED. VITAL SIGNS STABLE WITH EXCEPTION OF AN ELEVATED BP. O2 96% ON 2L NC, REDUCED TO 1L TO ATTEMPT TITRATION. PT IS ALERT/ORIENTED X4. REPORTS PAIN IN BACK RATED 4/10. ALSO REPORTS HEAD FEELS "FUNNY". MOIST COUGH NOTED BUT PT REPORTS NO SPUTUM PRODUCTION. LUNGS CLEAR TO AUSCULTATION. NAQVI TO DD WITH CLEAR YELLOW URINE. WILL ATTEMPT TO WEAN O2 TODAY AND CONTINUE CURRENT CARE.
--- NOTE | 2018-08-19 10:29 | NUR ---
DP CALLED ZACK/NAHUM AT [facility], PATIENT WAS SKILLED THEN GOING TO ASSISSTED LIVING ONCE OUT OF HOSPITAL, HOWEVER IF SHE NEEDS SKILLED THEY CAN TAKE HER BACK SKILLED. DP WILL SEND REFERRAL TO [facility] FOR SKILLED.
--- NOTE | 2018-08-19 13:09 | NUR ---
MARYAN reviewed chart and spoke with nursing and attending physician. Pt is progressing towards goals for discharge. MARYAN met with pt at bedside to discuss discharge plans: returning to [facility] SNF [place]. [place]. Pt states her goal is to go home with services. Pt reports that she has always declined HH in the past, but would like to use [facility]. special events planner to fax clinical info to [facility] for review. Awaiting attending physician to see pt to determine discharge disposition. Update provided to admissions at [facility]. MARYAN is following to assist a needed with discharge planning.
--- NOTE | 2018-08-19 14:32 | NUR ---
PT TOLERATING ROOM AIR THIS SHIFT. SAT HAS REMAINED IN THE 90'S EVEN WITH ACTIVITY. PHYSICAL THERAPY WORKED WITH PT AFTER WHICH SHE SAT IN CHAIR FOR SEVERAL HOURS. CONSEQUENTLY SHE WAS WORN OUT AND NOT ABLE TO WORK WITH OT. PT IS CURRENTLY SLEEPING. PT ALSO REPORTS A POOR APPETITE. A MOIST COUGH IS STILL NOTED BUT PT UNABLE TO COUGH ANYTHING UP.
--- NOTE | 2018-08-19 17:16 | NUR ---
PT WAS PLACED BACK ON 02 AT 1L PER NC WHEN RT FOUND HER TO BE 88% DURING SLEEP. RT RECOMMENDED OVERNIGHT SAT STUDY. OBTAINED ORDER FROM PHYSICIAN FOR THIS. OTHERWISE NO NEW CONCERNS AT THIS TIME.
[2018-08-19 18:20] VITALS: BP 190/95
[2018-08-19 18:38] VITALS: BP 201/125; BP 214/120
[2018-08-19 21:20] VITALS: BP 206/114
[2018-08-20 00:45] VITALS: BP 186/102
--- NOTE | 2018-08-20 04:41 | NUR ---
ALERT AND ORIENTED X4. C/O HEADACHE AT BEGINNING OF SHIFT. TYLENOL AND LISINOPRIL GIVEN. BP WAS HIGH. BP RETAKEN AT 2120 AND IT WAS STILL UP AT 206/114. TAKEN AGAIN AT 0045. iT WAS STILL UP AT 186/102. DOCTOR AWARE OF BP. ORDERED MED . WILL RECHECK IN AM. HEADACHE GONE. SLEPT MOST OF NIGHT.
[2018-08-20 05:55] LABS: CALCIUM 8.7 mg/dL (8.5-10.1); CREATININE 0.6 mg/dL (0.6-1.0); POTASSIUM 3.2 mmol/L (3.5-5.1)
[2018-08-20 06:00] VITALS: BP 148/82
--- NOTE | 2018-08-20 06:08 | NUR ---
PATIENT BP DOWN THIS AM TO 148/82.
[2018-08-20 06:09] LABS: ADENOVIRUS Negative (Negative); INFLUENZA A Negative (Negative); INFLUENZA B Negative (Negative); METAPNEUMOVIRUS Positive (Negative); PARAINFLUENZA 1 Negative (Negative); PARAINFLUENZA 2 Negative (Negative); PARAINFLUENZA 3 Negative (Negative); RHINOVIRUS Negative (Negative); RSV A Negative (Negative); RSV B Negative (Negative)
[2018-08-20 07:10] VITALS: BP 173/93
--- NOTE | 2018-08-20 10:00 | NUR ---
SW reviewed chart and spoke with nursing. Attending physician recommends SNF placement for continued rehab services. merchandise planner to send clinical/therapy updates today to [facility]. Will need insurance authorization for admission to the skilled unit. Awaiting input from [facility] at this time. Chart copy ordered. MARYAN is following to assist as needed with discharge planning.
--- NOTE | 2018-08-20 11:50 | NUR ---
DP SENT UPDATES OF SARA/ADMISSIONS AT [facility].
--- NOTE | 2018-08-20 15:03 | NUR ---
ASSUMED CARE OF PATIENT THIS MORNING. PATIENT IS A&OX4. SHE IS UP WITH SBA TO BSC AND CHAIR. SHE HAS A NAQVI CATHETER, RETENTION. SHE COMPLAINS OF BEING TIRED TODAY. SHE WAS UP TO THE CHAIR THIS MORNING AND SHE RECEIVED THERAPY. PATIENT HAD DIMINISHED LUNG SOUNDS UPON AUSCULTATION. SHE WEARS 2L OF O2. ACTIVE BOWEL SOUNDS, LAST BOWEL MOVEMENT WAS 2/3. SHE CALLS OUT APPROPRIATELY FOR ASSISTANCE. PATIENT IS CURRENTLY LYING IN BED WITH CALL LIGHT WITHIN REACH.
--- NOTE | 2018-08-20 19:48 | NUR ---
I AGREE WITH NURSING ASSESSMENT DONE BY JUSTIN/MARLEN.
[2018-08-21] VITALS (7 sets, daily range): BP systolic 136–171; BP diastolic 72–101
--- NOTE | 2018-08-21 12:23 | NUR ---
DISCHARGE PLANNING. PER ATTENDING PHYSICIAN ANTICIPATED DISCHARGE FOR TOMORROW. POST ACUTE CARE, [facility]. [facility] ADMISSIONS NOTIFIED. FOLLOWING TO ASSIST WITH DISCHARGE.
--- NOTE | 2018-08-21 14:30 | NUR ---
ASSUMED CARE OF PATIENT THIS MORNING. PATIENT IS A&OX4. SHE IS UP WITH SBA TO THE CHAIR AND BSC. PATIENT COMPLAINS OF LEFT LOWER EXTREMITY PAIN. SHE WAS GIVEN TYLENOL WITH NO PAIN RELIEF. THEN LATER RECEIVED TRAMADOL FOR PAIN. PATIENT RECEIVED PT THIS MORNING AND WAS ABLE TO TOLERATE WALKING IN THE RANGEL WITH WALKER TO THE OTHER END OF THE UNIT. PATIENT'S BP WAS HIGH THIS MORNING. ORTHOSTATIC BP WAS TAKEN ON PATIENT THIS AFTERNOON. PATIENT IS A DAILY WEIGHT PER STANDING SCALE. PATIENT TOLERATES THIN LIQUIDS W/ NO STRAWS AND A MECHANICAL ALTERED CHOPPED DIET DR. JOSEPH ORDERED A NOCTURNAL DESAT TEST FOR TONIGHT. O2 SATURATION IS TO REMAIN ON THE SAME OXYGEN LEVEL PRIOR TO STARTING THE TEST FOR THE FIRST 6MINS WHEN THE ACTUAL DESAT CAN BE DETERMINED. PATIENT IS CURRENTLY LYING IN BED, WITH CALL LIGHT WITHIN REACH. PATIENT CALLS OUT APPROPRIATELY FOR ASSISTANCE.
--- NOTE | 2018-08-21 15:39 | NUR ---
I AGREE WITH NURSING ASSESSMENT DONE BY JUSTIN/MARLEN.
--- NOTE | 2018-08-22 04:37 | NUR ---
PATIENT ALERT AND ORIENTED X4. HAS NAQVI THAT IS PATENT OF CL YELLOW URINT. HAVING AN OVERNIGHT PULSE OX STUDY DONE. C/O PAIN, TYLENOL AND TRAMADOL GIVEN TOGETHER PER DR'S ORDERS. PATIENT SLEPT MOST OF NIGHT.
[2018-08-22 06:39] LABS: ALBUMIN 2.6 g/dL (3.4-5.0); CALCIUM 8.7 mg/dL (8.5-10.1); CREATININE 0.6 mg/dL (0.6-1.0)
[2018-08-22 08:18] VITALS: BP 153/73
--- NOTE | 2018-08-22 12:02 | NUR ---
MARYAN reviewed chart and spoke with attending physician. MARYAN received call from Mely at [facility] who states they do not have insurance authorization yet for pt to be admitted to their skilled unit. Need additional OT notes. [facility] from today. Attending physician ordered 5N to evaluate pt for inpt acute rehab. Awaiting input from JordynN at this time. MARYAN updated Mely at [facility]. No discharge today. MARYAN is following to assist as needed with discharge planning.
--- NOTE | 2018-08-22 14:23 | NUR ---
PATIENT CARE WAS ASSUMED AT 0715.PATIENT IS ALERT AND ORIENTED X4.PATIENT HAS A FLAT AFFECT.COMPLAINS OF PAIN IN BACK THAT IS CHRONIC PAIN,RATE PAIN 6/10.PATIENT WAS GIVEN PAIN MEDICATION.IV IS INTACT WITH FLUIDS INFUSING.PATIENT IS ABLE TO AMBULATE WITH X1 ASSIST.PATIENT HAS NAQVI PATENT D/D.CALL LIGHT,PHONE, AND PERSONAL BELONGINGS ARE WITHIN REACH.
[2018-08-22 19:45] VITALS: BP 160/88
[2018-08-23 00:39] LABS: URINE BILIRUBIN NEGATIVE (Negative); URINE BLOOD 1+ (Negative); URINE CLARITY CLEAR; URINE COLOR YELLOW; URINE GLUCOSE-RANDOM* NEGATIVE (Negative); URINE KETONES NEGATIVE (Negative); URINE LEUKOCYTES NEGATIVE (Negative); URINE NITRITE NEGATIVE (Negative); URINE PROTEIN (DIPSTICK) NEGATIVE (Negative); URINE UROBILINOGEN 0.2 E.U./dl (0.2-1.0)
[2018-08-23 00:49] LABS: BACTERIA None Seen /HPF (None Seen); CASTS None Seen /LPF (None Seen); CRYSTALS None Seen /LPF (None Seen); MUCUS 0-3 Light strn/LPF (None Seen); SQUAMOUS None Seen /LPF (0-3); URINE RBC 0-2 Rare /HPF (0-2); URINE WBC None Seen /HPF (0-5)
--- NOTE | 2018-08-23 03:59 | NUR ---
ASSUMED CARE OF PATIENT AT 1900. VSS. ASSESSMENT COMPLETED AT 2100 AND IS DOCUMENTED. PT UP TO BSC AROUND 1915, BUT WAS UNABLE TO URINATE AT THIS TIME. PT ATTEMPTED TO URINATE AGAIN AT 2300 WITHOUT RESULT. BLADDER SCAN SHOWED [address] JOSEPH NOTIFIED. NEW ORDERS TO INSERT NAQVI, UA W/ REFLEX CULTURE, AND TO INCREASE TAMSULOSIN 0.4 MG TO 2X DAILY RECEIVED AND IMPLEMENTED. NAQVI INSERTED @ 5 WITHOUT DIFFICULTY. 450 ML URINE COLLECTED IN NAQVI DRAINAGE BAG AFTER INSERTION. UA SENT TO LAB. RIGHT WRIST PIV PATENT AND SALINE LOCKED. PT CURRENTLY SLEEPING SOUNDLY IN BED IN NO ACUTE DISTRESS. CALL LIGHT WITHIN REACH. BED LOCKED AND IN LOWEST POSITION. [facility].
--- NOTE | 2018-08-23 06:46 | NUR ---
reviwed pt assessment in is in agreement with chava felix
[2018-08-23 08:00] VITALS: BP 175/85
[2018-08-23 08:23] VITALS: BP 175/85
--- NOTE | 2018-08-23 10:54 | NUR ---
PATIENT CARE WAS ASSUMED AT 0715.PATIENT IS ALERT AND ORIENTED X4.PATIENT IS RESTING IN BED.PT IS ABLE TO GET UP WITH ASSIST X1.PATIENT IS DAILY WEIGHT.STRICT I&O.PT HAS NAQVI FROM URINE RETENSION.CALL LIGHT, PHONE,AND PERSONAL BELONGINGS ARE WITHIN REACH.
[2018-08-23] MEDS ORDERED: CEFDINIR300 MG PO (11:46)
[2018-08-23] MEDS ORDERED: IPRAT-ALBUT 0.5-3 ML INH (11:46)
[2018-08-23] MEDS ORDERED: FLOMAX0.4 MG PO (11:47)
[2018-08-23] MEDS ORDERED: LISINOPRIL10 MG PO (11:48)
[2018-08-23] MEDS ORDERED: TRAMADOL 50 MG50 MG PO (11:49)
[2018-08-23] MEDS ORDERED: PANTOPRAZOLE SO40 M1 PO (11:50)
--- NOTE | 2018-08-23 12:05 | NUR ---
DISCHARGE NOTE: MARYAN reviewed chart and spoke with nursing. MARYAN notified by Mely in admissions at [facility] that insurance has authorized pt to go to their SNF. [facility] is able to accept pt today. MARYAN notified attending physician. Discharge orders written and faxed by MARYAN to [facility]. Awaiting transportation time. Chart copy ordered. Nursing provided with number to call report. MARYAN is following to finalize discharge plan.
[2018-08-23 12:20] LABS: CALCIUM 8.6 mg/dL (8.5-10.1); CREATININE 0.6 mg/dL (0.6-1.0)
--- NOTE | 2018-08-23 14:21 | NUR ---
PATIENT WAS DISCHARGED TO GO TO [facility].TRANSPORTATION ARRIVED AT 1415.PATIENT'S IV WAS TAKEN OUT,GAUZE WAS PLACED WITH TAPE.PATIENT HAS NAQVI D/D.PT HAS CLOTHES ON, AND ALL OF HER PERSONAL BELONGINGS.PT WAS TAKEN IN A W/C VAN.REPORT WAS CALLED IN TO NURSE AT [facility].
== END 2018-08-23 14:26 | DRG 178 ==
LOC: ER 09:04 → EROBS 11:51 → SICU 11:51 → 4E 12:48 → SICU 18:14
PROVIDERS: Internal Medicine; Nurse Practitioner; Nurse Practitioner Family; ADMIT Internal Medicine
DX: J69.0 Pneumonitis due to inhalation of food and vomit (principal); N39.0 Urinary tract infection, site not specified; I50.32 Chronic diastolic (congestive) heart failure; E87.1 Hypo-osmolality and hyponatremia; E27.40 Unspecified adrenocortical insufficiency; E44.0 Moderate protein-calorie malnutrition; G43.909 Migraine, unspecified, not intractable, without status migrainosus; M81.0 Age-related osteoporosis without current pathological fracture; F32.9 Major depressive disorder, single episode, unspecified; K21.9 Gastro-esophageal reflux disease without esophagitis; I25.10 Atherosclerotic heart disease of native coronary artery without angina pectoris; E03.9 Hypothyroidism, unspecified; M19.90 Unspecified osteoarthritis, unspecified site; G62.9 Polyneuropathy, unspecified; I27.20 Pulmonary hypertension, unspecified; E87.6 Hypokalemia; M46.1 Sacroiliitis, not elsewhere classified; M54.16 Radiculopathy, lumbar region; I11.0 Hypertensive heart disease with heart failure; R13.12 Dysphagia, oropharyngeal phase; R33.9 Retention of urine, unspecified; I95.1 Orthostatic hypotension; Z66 Do not resuscitate; B96.20 Unspecified Escherichia coli [E. coli] as the cause of diseases classified elsewhere; E86.0 Dehydration; E88.09 Other disorders of plasma-protein metabolism, not elsewhere classified; Z86.73 Personal history of transient ischemic attack (TIA), and cerebral infarction without residual deficits; Z87.81 Personal history of (healed) traumatic fracture; Z90.710 Acquired absence of both cervix and uterus; Z88.6 Allergy status to analgesic agent; Z88.8 Allergy status to other drugs, medicaments and biological substances; Z68.20 Body mass index [BMI] 20.0-20.9, adult
CPT/HCPCS: 15002

== ENCOUNTER 2018-10-03 11:42 | Inpatient (IN) | payer OTHER ==
[~2018-10-03] VITALS: Ht 154.9 cm; Wt 50.6 kg
[~2018-10-03 11:42] MED LIST changes: +CEFDINIR300 MG PO; +IPRAT-ALBUT 0.5-3 ML INH; +LIDODERM1 EACH TRANSDERM; +LISINOPRIL10 MG PO; +PANTOPRAZOLE SO40 M1 PO
[2018-10-03 11:52] VITALS: BP 80/51
[2018-10-03 12:19] LABS: ABSOLUTE NEUTROPHILS 7.7 thou/uL (1.4-8.2); BASOPHILS 0.4 % (0.0-2.0); EOSINOPHILS 0.5 % (0.0-3.0); HEMATOCRIT 41.9 % (37.0-47.0); HEMOGLOBIN 14.1 gm/dL (12.0-15.0); LYMPHOCYTES 13.7 % (24.0-44.0); MCH 33.5 pg (26.0-34.0); MCHC 33.6 g/dL (28.0-37.0); MCV 99.7 fL (80.0-100.0); MONOCYTES 11.4 % (1.0-8.0); PLATELET COUNT 318 thou/uL (150-400); RDW 16.1 % (10.5-14.5); WBC 10.5 thou/uL (4.0-11.0)
[2018-10-03 12:21] LABS: CALCIUM 8.5 mg/dL (8.5-10.1); CREATININE 0.8 mg/dL (0.6-1.0); POTASSIUM 4.1 mmol/L (3.5-5.1)
[2018-10-03 12:26] LABS: ALBUMIN 3.1 g/dL (3.4-5.0); TOTAL BILIRUBIN 0.3 mg/dL (<0.1-1.0); TOTAL PROTEIN 6.5 g/dL (6.4-8.2)
[2018-10-03 14:05] LABS: URINE BILIRUBIN NEGATIVE (Negative); URINE BLOOD 2+ (Negative); URINE CLARITY CLEAR; URINE COLOR YELLOW; URINE GLUCOSE-RANDOM* NEGATIVE (Negative); URINE KETONES TRACE (Negative); URINE PROTEIN (DIPSTICK) NEGATIVE (Negative); URINE UROBILINOGEN 0.2 E.U./dl (0.2-1.0)
[2018-10-03 14:06] LABS: URINE LEUKOCYTES-REFLEX 1+ (Negative); URINE NITRITE-REFLEX POSITIVE (Negative)
[2018-10-03 14:14] LABS: BACTERIA-REFLEX >30 Many /HPF (None Seen); CASTS None Seen /LPF (None Seen); CRYSTALS None Seen /LPF (None Seen); MUCUS >6 Heavy strn/LPF (None Seen); SQUAMOUS 0-3 Few /LPF (0-3); URINE RBC 3-10 Few /HPF (0-2); URINE WBC-REFLEX 0-5 Rare /HPF (0-5)
[2018-10-03 15:06] VITALS: BP 122/71
[2018-10-03 15:16] VITALS: BP 128/61
--- NOTE | 2018-10-03 15:44 | NUR ---
THIS CORE FEEDER SPEAKS WITeena JOSEPH. T/O: 8MG ZOFRAN ODT Q8H PRN
--- NOTE | 2018-10-03 18:07 | EKG ---
[address] [facility] [place] [address] ELECTROCARDIOGRAM REPORT Name: MARAH BUTTS Room #: 170-11 ADM IN M.R.#: [id number] ������������������ Admission: 10/03/18 ������������������ Attend Phys: Yoni Schreiber MD Discharge: ������������������ Date of : 32 Report #: [id number] ����������������������������������������������������������������� [id number] THIS REPORT FOR: //name// [facility] ED Test Date: 2018-10-03 Test Time: 13:23:33 Pat Name: MARAH BUTTS Department: Room: 170 Gender: F Research Support Specialist: SUNNY : 1930 Requested By: Rafael Granger Order Number: [id number] MD: Israel Wheeler Measurements Intervals [place] Rate: 70 P: 43 IL: 175 QRS: 21 QRSD: 87 T: 55 QT: 428 QTc: 462 Interpretive Statements Sinus rhythm Consider left ventricular hypertrophy Anterior Q waves, possibly due to LVH Compared to ECG 08/15/2018 10:19:21 Atrial premature complex(es) no longer present Electronically Signed On 10-03-2018 18:07:12 CDT by Israel Wheeler [email or web address] ��������������������������������������������� <ELECTRONICALLY SIGNED> ���������������������������������������� By: Israel Wheeler MD, [facility] ��������������������������������������������� 10/03/181806 1323 1323 Israel Wheeler MD, [facility] /EPI
[2018-10-03 22:55] VITALS: BP 146/72
[2018-10-04 05:56] VITALS: BP 154/89
[2018-10-04 06:10] VITALS: BP 154/89
[2018-10-04 06:35] VITALS: BP 148/77
--- NOTE | 2018-10-04 14:27 | NUR ---
met with patient who recently dc from [facility] Aug 23 to [facility] post acute care. Patient admits from home her Blanca at [facility] independent living. She has been out of post acute care for approx a couple of weeks. Dtr Azucena has been staying with patient assisting. Sp with Azucena who reports good and bad days. Sometimes patient will ambulate short distances with walker and other times she transfers from with assist. Dtr reports [facility] coming to home but feels patient needs more intense therapy. She reports therapy approx 2x a week. PT meliton recommends post acute care. Both patient and dtr in agreement. Patient with a setback with illness recently and would benefit from post acute care. Referral to [facility].
--- NOTE | 2018-10-04 15:08 | NUR ---
FAXED REFERRAL TO [facility] SPOKE WITH [facility] IN ADM. SHE WILL REVIEW REFERRAL WILL FAX OT NOTES ONCE AVAILABLE. DCP TO FOLLOW.
[2018-10-04 16:00] VITALS: BP 155/85
--- NOTE | 2018-10-04 17:24 | NUR ---
PT ADMITTED FROM ER. ADMISSION HX AND ASSESSMENT COMPLETED. VSS. SCHEDULED ABX GIVEN ORDERED. HAD LARGE BM THIS SHIFT. UN ABLE TO VOID. BLADDER SCAN SHOWED 450. DR VELARDE NOTIFIED. ORDERS GIVEN TO INSERT NAQVI. EVALUATED BY PT. CHECKED FREQUENTLY AND NEEDS MET. WILL CONTINUE TO MONITOR.
[2018-10-04 19:55] VITALS: BP 143/59
[2018-10-05] VITALS (7 sets, daily range): BP systolic 124–193; BP diastolic 59–90
--- NOTE | 2018-10-05 02:56 | NUR ---
ASSUMED PT CARE AT 1900. PT A/OX4, VITAL SISGNS STABLE, ASSESSMENT CHARTED. PT WAS NAUSEATED AND VOMITING/DRY HEEVING. ZOFRAN GIVEN WHICH SEEMED TO HELP TEMPORARILY. ANDOMINAL PAIN ADEQUATELY MANAGED WITH PAIN MEDICATION. FALL PRECAUTIONS IN PLACE. PT DID NOT REST WELL THROUGH THE NIGHT DUE TO NAUSEA AND VOMITING. ZOFRAN NEEDED. FOLLOWING PLAN OF CARE. WILL CONTINUE TO MONITOR.
[2018-10-05 04:36] LABS: HEMATOCRIT 37.8 % (37.0-47.0); HEMOGLOBIN 13.1 gm/dL (12.0-15.0); MCH 33.5 pg (26.0-34.0); MCHC 34.6 g/dL (28.0-37.0); MCV 96.8 fL (80.0-100.0); RBC 3.91 mil/uL (4.20-5.00); RDW 15.6 % (10.5-14.5); WBC 11.9 thou/uL (4.0-11.0)
[2018-10-05 04:51] LABS: CALCIUM 7.8 mg/dL (8.5-10.1); CREATININE 0.6 mg/dL (0.6-1.0); POTASSIUM 3.1 mmol/L (3.5-5.1)
--- NOTE | 2018-10-05 16:19 | NUR ---
PT CARE ASSUMED APPROX 0700. PT ALERT AND ORIENTED X4. DENIES PAIN AND SOA. VSS. PT NAUSEATED MOST OF DAY. DR VELARDE WAS PAGED REGARDING NAUSEA AND HE ORDERED NURSE TO CALL ABEL SIMS. ABEL SIMS WAS PAGED BUTNEVER RETURNED PHONE CALL. PT REPORTED THAT SHE FELT SOME RELIEF AFTER BM SO DRS WERE NEVER REPAGED. PT REFUSED P/T REPORTIGN TO FEEL TOO SICK. VOMITING ONLY SECRETIONS. NO BILE NOTED. FLOMAX ADDED TO POC. URINARY CATH PATENT. IVF CHANGED BUT REMAIN TO POC. IV ABT REMAIN TO POC. PT INCONT THIS SHIFT OF BM. FAMILY AT BEDSIDE FOR SHORT TIME THIS SHIFT AND RECEIVED CLINICAL UPDATE. FAMILY DENIES QUESTIONS AND CONCERNS AT THIS TIME REGARDING POC. NO ACUTE DISTRESS NOTED.
[2018-10-06 04:15] VITALS: BP 154/81
--- NOTE | 2018-10-06 04:18 | NUR ---
ASSUMED PT CARE AT 1900. PT A/OX4, SOMETIMES FORGETFUL. VITAL SIGNSS. SBP IN 190'S. PHYSICIAN INFORMED, ORDERS RECIEVED. PT WAS GIVEN LABETALOL WHICH SEEMED TO HELP. NAUSEA ADEQAUTELY MANAGED WITH ZOFRAN. PT WAS ABLE TO REST BETTER DURING SHIFT. ABDOMINL PAIN ADEQAUTELY MANAGED WITH PAIN. HOURLY ROUNDING COMPLETED. FALL PRECAUTIONS MAINTAINED. FOLLOWING PLAN OF CARE. WILL CONTINUE TO MONITOR.
[2018-10-06 04:29] LABS: CALCIUM 7.8 mg/dL (8.5-10.1); CREATININE 0.6 mg/dL (0.6-1.0); MAGNESIUM 1.5 mg/dL (1.8-2.4); POTASSIUM 3.7 mmol/L (3.5-5.1)
[2018-10-06 07:43] VITALS: BP 138/68
[2018-10-06 12:34] VITALS: BP 148/75
[2018-10-06 16:23] VITALS: BP 163/80
--- NOTE | 2018-10-06 16:23 | NUR ---
PT CARE ASSUMED APPROX 0700. PT ALERT AND ORIENTED X4. DENIES SOA. REPORTS INTERMITTENT ABD PAIN BUT THAT IT'S MUCH IMPROVED. VSS. DENIES NAUSEA AT REST BUT REPORTS WHEN MOBILIZING AND EATING. DIET WAS ADVANCED PER PT REQUEST. GI APPROVED BUT PT NOT EATING MUCH. IVF REMAINS TO POC. IV ABT REMAINS TO POC. FAMILY AT BEDSIDE AND RECEIVED CLINICAL UPDATE. ALL DENY QUESTIONS OR CONCERNS REGARDING POC. NO DISTRESS NOTED.
[2018-10-06 18:19] VITALS: BP 161/122
[2018-10-06 19:19] VITALS: BP 161/122
[2018-10-07 04:52] VITALS: BP 148/71
--- NOTE | 2018-10-07 08:23 | NUR ---
ASSESSMENT CHARTED. PATIENT CONTINUES TO HAVE INCONTINENT BOWEL MOVEMENTS WITH CONTINUOUS DIARRHEA. CURRENTLY GETTING METRONIDAZOLE. MEDS WITH YOGURT. BLOOD PRESSURE CAME DOWN ON ITS OWN OVER TIME. PLAN OF CARE TO CALM THE DIVERTICULITIS AND FIRM BOWEL MOVEMENTS. ON FALL PRECAUTIONS.
[2018-10-07 08:30] VITALS: BP 172/87
--- NOTE | 2018-10-07 15:18 | NUR ---
FAXED TODAY'S PT NOTES TO [facility] LEFT MSG WITH ADM. OF PT NOTES FAXED DCP TO FOLLOW.
--- NOTE | 2018-10-07 16:34 | NUR ---
PT CARE ASSUMED APPROX 0700. PT ALERT AND ORIENTED X4. MOOD IS GRUMPY.PT ADMITS SHE IS "JUST GRUMPY BECAUSE IM SICK." FAMILY IS AWARE. DENIES PAIN, SOA AND NAUSEA. REPORTS NOT HAVING MUCH OF AN APPETITE. MEALS ARE BARELY EATEN. VSS. PT UP TO CHAIR FOR 1.5 HRS. MAX ASSIST BACK TO BED. RIGHT HAND PIV REPLACED AFTER INFILTRATION. PLACED TO RIGHT HAND AGAIN. UOP IMPROVED AND ORDER TO PULL URINARY CATH BUT PT REFUSES. THIS NURSE REQUESTED 3X AND EDUCATED ON WHY IT SHOULD COME OUT. WILL NOTIFY DR ON ROUNDS IF SEEN TODAY. WILL PASS ON TO NOC NURSE TO NOTIFY DR IF HE ROUNDS LATER THIS EVENING. MULTIPLE LOOSE STOOLS NOTED THIS SHIFT. FLAGYL REMOVED FROM POC. NO LOOSE STOOLS SINCE THEN. IVF AND IC ABT REMAIN TO POC. NO DISTRESS NOTED.
[2018-10-07 16:57] VITALS: BP 147/52
[2018-10-07 20:11] VITALS: BP 177/90
--- NOTE | 2018-10-08 02:04 | NUR ---
ASSESSMENTS CHARTED. ONE DIARRHEA BOWEL MOVEMENT AT START OF SHIFT. DR. JOSEPH STOPPED BY AND GAVE AN ORDER THAT THE NAQVI COULD STAY UNTIL 0900 10/08/18. PATIENT STILL HAS NO APPITITE. PLAN OF CARE TO CONTINUE ANTIBIOTICS FOR DIVERTICULITIS THEN GO TO REHAB TO STRENGTHEN.
[2018-10-08 03:59] LABS: ALBUMIN 2.6 g/dL (3.4-5.0); CALCIUM 8.2 mg/dL (8.5-10.1); CREATININE 0.7 mg/dL (0.6-1.0); POTASSIUM 3.8 mmol/L (3.5-5.1); TOTAL BILIRUBIN 0.4 mg/dL (<0.1-1.0); TOTAL PROTEIN 5.3 g/dL (6.4-8.2)
[2018-10-08 04:16] LABS: HEMATOCRIT 37.4 % (37.0-47.0); HEMOGLOBIN 12.9 gm/dL (12.0-15.0); MCH 33.4 pg (26.0-34.0); MCHC 34.5 g/dL (28.0-37.0); MCV 96.9 fL (80.0-100.0); RBC 3.86 mil/uL (4.20-5.00); RDW 15.7 % (10.5-14.5); WBC 8.5 thou/uL (4.0-11.0)
[2018-10-08 04:19] VITALS: BP 146/78
[2018-10-08 07:10] VITALS: BP 166/86
--- NOTE | 2018-10-08 10:46 | NUR ---
spoke with admissions at [facility] they do have bed avail for post acute care. They are working on submitting for auth with [facility]. Updated patient and dtr who are in agreement with post acute care.
--- NOTE | 2018-10-08 11:40 | NUR ---
Assumed pt care at 7am.Pt in bed resting. Assessment completed.vss.Pt c/o nausea after breakfast.Zofran ivp given with relief. Complete bed bath given by occ.therapist.Pt will possibly transfer to senior suites later today if bed available.Will continue to monitor.
[2018-10-08 15:33] VITALS: BP 172/88
[2018-10-08 17:52] VITALS: BP 179/92
--- NOTE | 2018-10-08 20:08 | NUR ---
PATIENT TRANSFERRED FROM CCU, REPORT FROM RENNY/JESSICA. PATIENT ALERT AND ORIENTED X 4. PATIENT UP WITH ASSIST X 1 WITH WALKER. UPON ARRIVAL TO THE UNIT, RENNY/JESSICA REPORT PATIENT RECEIVED A SKIN TEAR TO LEFT LEG WHEN GETTING HER IN THE WHEELCHIR, RENNY/RN APPLIED TEGADERM TO AREA. PATIENT HAS RIGHT FOREARM IV WITH NS AT 80CC/HR. WILL CONTINUE TO MONITOR.
--- NOTE | 2018-10-08 21:45 | NUR ---
Pt A/OX4,denies pain on assessment. Pt has weakness to LLE and requires assist of 2 with transfers. here to see pt this evening order written for STAT CT scan of the head,CT done and no acute intracranial changes noted;chronic/age related changes noted. Results called in to . Pt educated on fall safety and agrees to call for help. Bed alarm on and call light within reach. Pt has a skin tear on left lateral alexandre with a tegaderm dsg in place. Will continue to monitor pt.
[2018-10-08 21:52] VITALS: BP 138/71
--- NOTE | 2018-10-09 10:17 | NUR ---
MARYAN reviewed chart and spoke with nursing. Pt was transferred to [facility] from . MARYAN discussed case with April in admissions at [facility], who states they do have insurance authorization and can accept pt today if she is ready for discharge. MARYAN updated attending physician. Chart copy requested. MARYAN is following to assist as needed with discharge planning.
--- NOTE | 2018-10-09 10:41 | NUR ---
Patient to discharge today to [facility]. Chart copy has been ordered.
--- NOTE | 2018-10-09 11:00 | NUR ---
PATIENT CARE WAS ASSUMED AT 0715.PATIENT IS ALERT AND ORIENTED X4.PATIENT IS MAX ASSIST.INCONTIENT OF BOWEL AND BLADDER.PT IS WEARING HER OWN BRIEFS FROM HOME.IV IS INTACT AND HAS FLUIDS INFUSING.PT NEEDS SET UP FOR ALL MEALS, AND HAS REQUESTED A SOFT TOUCH CALL LIGHT FOR BETTER ACCESS.PT HAS NO COMPLAINS OF PAIN AT THIS TIME.CALL LIGHT,PHONE, AND PERSONAL BELONGINGS ARE WITHIN REACH.
[2018-10-09 18:55] VITALS: BP 142/81
--- NOTE | 2018-10-10 04:52 | NUR ---
Pt A/OX4,pleasant. Denies pain on assessment.VSS. Pt is max assist with transfers d/t weakness to LLE. Incontinent of B&B,pericare done after each episode of incontinence. Pt has been NPO since midnight as ordered for intra-articular cortisone injection to Left hip. Pt's IV on left hand infiltrated at HS reinserted on right hand without problems. Fall precautions in place and pt calling approp for help.IV fluids dc'd as ordered. Resting quietly with eyes closed no distress will continue to monitor pt.
[2018-10-10 06:45] LABS: HEMATOCRIT 39.3 % (37.0-47.0); HEMOGLOBIN 13.2 gm/dL (12.0-15.0); MCH 32.8 pg (26.0-34.0); MCHC 33.6 g/dL (28.0-37.0); MCV 97.7 fL (80.0-100.0); RBC 4.03 mil/uL (4.20-5.00); RDW 16.3 % (10.5-14.5); WBC 8.2 thou/uL (4.0-11.0)
[2018-10-10 07:20] LABS: ALBUMIN 2.7 g/dL (3.4-5.0); ANION GAP 6 mmol/L (7-16); BUN 7 mg/dL (7-18); CALCIUM 8.6 mg/dL (8.5-10.1); CHLORIDE 104 mmol/L (98-107); CO2 28 mmol/L (21-32); CREATININE 0.7 mg/dL (0.6-1.0); DIRECT BILIRUBIN < 0.1 mg/dL (<0.1-0.3); GLUCOSE 97 mg/dL (74-106); MAGNESIUM 1.9 mg/dL (1.8-2.4); POTASSIUM 4.1 mmol/L (3.5-5.1); SGOT 23 U/L (15-37); SGPT 18 U/L (30-65); SODIUM 138 mmol/L (136-145); TOTAL BILIRUBIN 0.3 mg/dL (<0.1-1.0); TOTAL PROTEIN 5.4 g/dL (6.4-8.2)
[2018-10-10 07:30] VITALS: BP 133/64
--- NOTE | 2018-10-10 10:14 | NUR ---
MARYAN reviewed chart and spoke with nursing. Pt is currently off the unit having a cortisone injection to her left hip. Plan is for pt to d/c to [facility] later today. MARYAN faxed clinical updates to [facility] and notified April, in admission. Awaiting final discharge orders. Chart copy will need to be updated. MARYAN is following to assist as needed with discharge planning.
[2018-10-10] MEDS ORDERED: CIPRO500 MG PO (12:33)
[2018-10-10] MEDS ORDERED: ENOXAPARIN40 MG/0.1 SUBQ (12:34)
[2018-10-10] MEDS ORDERED: FLOMAX0.4 MG PO (12:34)
[2018-10-10] MEDS ORDERED: REMERON15 MG PO (12:36)
[2018-10-10] MEDS ORDERED: MAG OX PO (12:37)
[2018-10-10] MEDS ORDERED: ONDANSETRON HCL4 M1 IV PUSH (12:38)
[2018-10-10] MEDS ORDERED: Prednisone 5 MG TAB PO (12:38)
[2018-10-10 12:42] VITALS: BP 133/64
--- NOTE | 2018-10-10 14:59 | NUR ---
dp called to let patient's daughter Azucena know that her mother will be picked up today at 430pm to go to [facility].
--- NOTE | 2018-10-10 17:45 | NUR ---
PATIENT CARE WAS ASSUMED AT 0715.PATIENT IS ALERT AND ORIENTED X4, HAS SOME FORGETFULNESS.PT IS MAX ASSIST, WITH SET UP OF ALL MEALS.INCONTINENT OF BOWEL AND BLADDER.IV IS INTACT, PATENT.PT TAKES PILLS WITH APPLESAUCE.PT NSKIN IS THIN, AND HAS SKIN TEAR ON LEG COVERD WITH CLEAR BANDAGING.PT HAS NO COMPLAINS OF PAIN AT THIS TIME.CALL LIGHT, PHONE, AND PERSONAL BELONGINGS ARE WITHIN REACH.
--- NOTE | 2018-10-10 17:53 | NUR ---
PATIENT WAS DISCHARGED TO GO [facility]. DAUGHTER MADE ARRANGEMENTS TO MEET HER MOTHER THERE, AND TOOK HER A MAJORITY OF HER BELONGINGS. IV WAS TAKEN OUT.CLOTHES WERE PUT ON PATIENT, ALONG WITH A CLEAN BRIEF.PT WAS PLACED IN W/C BY TWO NURSES,AND SHE HAS THE REMAINDER OF HER BELONGINGS.PAPERWORK WAS GIVEN TO TRANSPORTATION.REPORT WAS CALLED INTO NURSE AT [facility].
== END 2018-10-10 16:45 | DRG 391 ==
LOC: ER 11:42 → EROBS 13:57 → 2N 13:57 → EROBS 19:16 → 2N 10-04 06:10 → SICU 10-08 17:50
PROVIDERS: Emergency Medicine; Internal Medicine; ADMIT Internal Medicine
PROC: 0S9B3ZZ Drainage of Left Hip Joint, Percutaneous Approach (ICD-10-PCS; principal; 2018-10-10)
DX: K57.92 Diverticulitis of intestine, part unspecified, without perforation or abscess without bleeding (principal); E43 Unspecified severe protein-calorie malnutrition; N39.0 Urinary tract infection, site not specified; E87.1 Hypo-osmolality and hyponatremia; M48.50XA Collapsed vertebra, not elsewhere classified, site unspecified, initial encounter for fracture; I50.32 Chronic diastolic (congestive) heart failure; G43.909 Migraine, unspecified, not intractable, without status migrainosus; M81.0 Age-related osteoporosis without current pathological fracture; K21.9 Gastro-esophageal reflux disease without esophagitis; I25.10 Atherosclerotic heart disease of native coronary artery without angina pectoris; M19.90 Unspecified osteoarthritis, unspecified site; G62.9 Polyneuropathy, unspecified; I27.20 Pulmonary hypertension, unspecified; E86.9 Volume depletion, unspecified; I95.9 Hypotension, unspecified; E03.9 Hypothyroidism, unspecified; I11.0 Hypertensive heart disease with heart failure; K59.00 Constipation, unspecified; K44.9 Diaphragmatic hernia without obstruction or gangrene; E87.6 Hypokalemia; E83.42 Hypomagnesemia; R33.9 Retention of urine, unspecified; K22.70 Barrett's esophagus without dysplasia; M35.3 Polymyalgia rheumatica; I48.0 Paroxysmal atrial fibrillation; I95.1 Orthostatic hypotension; M41.84 Other forms of scoliosis, thoracic region; M41.86 Other forms of scoliosis, lumbar region; E86.0 Dehydration; Z86.73 Personal history of transient ischemic attack (TIA), and cerebral infarction without residual deficits; Z87.81 Personal history of (healed) traumatic fracture; Z90.710 Acquired absence of both cervix and uterus; Z88.6 Allergy status to analgesic agent; Z88.8 Allergy status to other drugs, medicaments and biological substances; Z82.49 Family history of ischemic heart disease and other diseases of the circulatory system; Z87.11 Personal history of peptic ulcer disease; Z98.49 Cataract extraction status, unspecified eye; Z90.49 Acquired absence of other specified parts of digestive tract; Z79.899 Other long term (current) drug therapy
CPT/HCPCS: 10194; 15002

== ENCOUNTER 2019-02-10 13:42 | Inpatient (IN) | payer OTHER ==
[~2019-02-10] VITALS: Ht 157.5 cm; Wt 44.4 kg
[2019-02-10 11:30] VITALS: BP 151/79
[~2019-02-10 13:42] MED LIST changes: +ARICEPT 5 MG TAB5 MG PO; +LIDOCAINE PAIN1 EACH TOP; +MAG OX PO; +REMERON15 MG PO
[2019-02-10 13:43] VITALS: BP 143/76
[2019-02-10 14:01] LABS: URINE BILIRUBIN NEGATIVE (Negative); URINE BLOOD 2+ (Negative); URINE CLARITY SL CLOUDY; URINE COLOR YELLOW; URINE GLUCOSE-RANDOM* NEGATIVE (Negative); URINE KETONES NEGATIVE (Negative); URINE LEUKOCYTES 2+ (Negative); URINE NITRITE POSITIVE (Negative); URINE PROTEIN (DIPSTICK) NEGATIVE (Negative); URINE SPECIFIC GRAVITY 1.025 (1.005-1.035); URINE UROBILINOGEN 0.2 E.U./dl (0.2-1.0)
[2019-02-10 14:11] LABS: HEMATOCRIT 38.7 % (37.0-47.0); HEMOGLOBIN 12.2 gm/dL (12.0-15.0); MCH 32.4 pg (26.0-34.0); MCHC 31.6 g/dL (28.0-37.0); MCV 102.4 fL (80.0-100.0); PLATELET COUNT 340 thou/uL (150-400); RBC 3.78 mil/uL (4.20-5.00); RDW 19.1 % (10.5-14.5); WBC 11.4 thou/uL (4.0-11.0)
[2019-02-10 14:15] LABS: AMORPHOUS URATES Moderate /LPF (None Seen); CASTS None Seen /LPF (None Seen); SQUAMOUS 4-10 Moderate /LPF (0-3); URINE RBC 3-10 Few /HPF (0-2)
[2019-02-10 14:20] LABS: ALBUMIN 1.4 g/dL (3.4-5.0); ANION GAP 9 mmol/L (7-16); BUN 32 mg/dL (7-18); CHLORIDE 117 mmol/L (98-107); CO2 20 mmol/L (21-32); CREATININE 0.6 mg/dL (0.6-1.0); GLUCOSE 56 mg/dL (74-106); SGOT 20 U/L (15-37); SGPT 19 U/L (30-65); SODIUM 146 mmol/L (136-145); TOTAL BILIRUBIN < 0.1 mg/dL (<0.1-1.0); TOTAL PROTEIN 3.9 g/dL (6.4-8.2)
[2019-02-10 14:21] LABS: CALCIUM 5.3 mg/dL (8.5-10.1)
[2019-02-10 14:31] LABS: ABSOLUTE NEUTROPHILS 9.7 thou/uL (1.4-8.2); METAMYELOCYTES 1 %
[2019-02-10 14:32] LABS: ANISOCYTOSIS 1+; MACROCYTES 1+; POLYCHROMASIA OCCASIONAL
[2019-02-10 16:50] VITALS: BP 150/72
[2019-02-10] MEDS ORDERED: REMERON15 MG PO (17:55)
[2019-02-10] MEDS ORDERED: NAMENDA 10 MG T10 MG PO (17:57)
[2019-02-10] MEDS ORDERED: POTASSIUM20 PO (18:07)
[2019-02-10] MEDS ORDERED: PREDNISONE 10 M10 MG PO (18:28)
[2019-02-10] MEDS ORDERED: FLOMAX0.4 MG PO (18:29)
[2019-02-10] MEDS ORDERED: VITAMIN B-1100 M2 PO (18:29)
[2019-02-10] MEDS ORDERED: TRAMADOL 50 MG50 MG PO (18:30)
[2019-02-10] MEDS ORDERED: TYLENOL EXTRA500 MG PO (18:31)
[2019-02-10] MEDS ORDERED: WELLBUTRIN XL150 MG PO (18:32)
[2019-02-10] MEDS ORDERED: ONDANSETRON HCL4 M2 PO (18:32)
[2019-02-10 23:05] VITALS: BP 147/75
[2019-02-10 23:30] VITALS: BP 147/75
[2019-02-11 00:22] VITALS: BP 155/59
[2019-02-11 04:54] VITALS: BP 193/73
[2019-02-11 05:07] LABS: CREATININE 0.8 mg/dL (0.6-1.0); MAGNESIUM 2.1 mg/dL (1.8-2.4); PHOSPHORUS 2.8 mg/dL (2.5-4.9)
[2019-02-11 05:09] LABS: CALCIUM 8.4 mg/dL (8.5-10.1); POTASSIUM 4.8 mmol/L (3.5-5.1)
[2019-02-11 05:30] LABS: TSH 11.871 uIU/mL (0.358-3.740)
[2019-02-11 07:45] VITALS: BP 182/67
--- NOTE | 2019-02-11 08:29 | NUR ---
ASSUMED CARE OF PT AT 0000HRS. PT AOXT AN D LETS NEEDS BE KNOWN. PT WAS ORIENTED TO THE ROOM AND THE UNIT. FALL PRECAUTION IN PLACE. PT IS INCT FOR BLADDER. ORDERS STARTED PER MD ORDER. THE NIGHT PROGRESSED, PT WAS ABLE TO SLEEP. NO S/S OF ACUTE DISTRESS. MONITORING CONTINUED.
--- NOTE | 2019-02-11 08:42 | EKG ---
[address] [place] [address] ELECTROCARDIOGRAM REPORT Name: MARAH BUTTS Room #: 453-P ADM IN M.R.#: [id number] Admission: 02/10/19 Attend Phys: Yoni Schreiber MD Discharge: Date of : 34 Report #: [id number] THIS REPORT FOR: //name// [facility] ED Test Date: 2019-02-10 Test Time: 15:19:31 Pat Name: MARAH BUTTS Department: Room: 453 Gender: F Landmen: SUNNY : 1930 Requested By: Marlin Diallo Order Number: [id number] MD: Israel Wheeler Measurements Intervals [place] Rate: 68 P: 43 MN: 163 QRS: 18 QRSD: 89 T: 63 QT: 413 QTc: 440 Interpretive Statements Sinus rhythm Abnormal R-wave progression, early transition Consider left ventricular hypertrophy Anterior ST elevation, probably due to LVH Compared to ECG 10/03/2018 13:23:33 Early R-wave progression is now present Electronically Signed On 02-11-2019 8:42:37 CDT by Israel Wheeler [email or web address] <ELECTRONICALLY SIGNED> By: Israel Wheeler MD, [facility] 02/11/19 0842 1519 1519 Israel Wheeler MD, [facility] /EPI
[2019-02-11 14:18] VITALS: BP 139/63
--- NOTE | 2019-02-11 16:47 | NUR ---
PT ADMITTED RELATED TO LOSS OF APPETITE, UTI, WEAKNESS, WEIGHT LOSS. CM REVIEWED CHART AND SPOKE WITH CARE TEAM. CM MET WITH PT AT BEDSIDE THIS DAY. PT IS A&O X4. CM ROLE INTRODUCED. PT INDICATED SHE LIVES IN LTC AT [facility]. PT INDICATED SHE HAD TRANSITIONED TO [place] FROM [place] TWO MONTHS AGO. PT INDICATED SHE HAD BEEN USING A WC TO ASSIST WITH MOBILITY METAL DRESSER AND THAT SHE HAD BEEDED ASSIST WITH TRANSFERS METAL DRESSER. PT INDICATED SHE PLANS TO RETURN TO [facility] ONCE MEDICALLY STABLE. CM TO FOLLOW INDICATED WITH DC PLANNING.
[2019-02-11 19:25] VITALS: BP 160/72
--- NOTE | 2019-02-11 20:49 | NUR ---
PT A&OX4, VSS, DESCRIBES A DULL/THROBBING PAIN IN LEFT HIP. FLUIDS RAN ORDERED. PT HAS NOT C/O BURNING WITH URINATION. PATIENT HAS BEEN SLEEPING MOSTLY THROUGHOUT DAY. FAMILY AT BEDSIDE. WILL CONTINUE TO MONITOR.
--- NOTE | 2019-02-11 22:16 | H ---
[facility] [place] [address] HISTORY AND PHYSICAL Name: MARAH GUZMAN Room #: 453-P [facility] IN ..#: [id number] Admission: 02/10/19 Attend Phys: Yoni Schreiber MD Discharge: Date of : 34 Report #: [id number] THIS REPORT FOR: //name// CC: Marti Schreiber DATE OF SERVICE: 02/10/2019 CHIEF COMPLAINT: Poor appetite. HISTORY OF PRESENT ILLNESS: The patient is an 88-year-old female who presented to the Emergency Department with loss of appetite. This has been going on for several weeks. She is concerned about weight loss and particularly concerned that she can no longer walk. I last saw her about a month ago at which time she was on a [facility] unit and getting therapy and making slow if any progress. Subsequently, she transferred to a full level [facility] care and she came under the management of another physician at the facility. I was unaware of the aforementioned symptoms until this date of Emergency Room visit. The patient states that she has been treated for urinary tract infection with some intramuscular injections lately. She denies abdominal pain. According to the notes from the Emergency Department from conversation with the Emergency Medical Services folks, "family was discussing hospice as they left to come here." PAST MEDICAL HISTORY: The patient has a very extensive past medical history, this includes oropharyngeal dysphagia due to paralyzed vocal cord and chronic hoarseness. 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 She has had multiple falls in the remote past, but none that I am aware of recently, hypothyroidism. She has a history of polymyalgia rheumatica and was treated with chronic prednisone and developed adrenal insufficiency due to chronic steroid use. She has been evaluated multiple times at the [facility] for shortness of breath in the past and was diagnosed with diastolic congestive heart failure. She has had multiple lumbar spine compression fractures and has had a kyphoplasty in the past. She has scoliosis. She has had hysterectomy. She has had bilateral cataract surgeries in the past. She has osteoarthritis, gastroesophageal reflux disease. She sustained a pelvic fracture several years ago from a fall. 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 She has hypothyroidism. She has recurrent urinary retention problems. MEDICATIONS: List at the time of this admission was not provided to me, but according to the notes from the Emergency Department, her current list includes metoprolol succinate, Tylenol, potassium chloride, levothyroxine, thiamine, amiodarone, gabapentin, lisinopril, tramadol, ciprofloxacin, tamsulosin, [address] [address] HISTORY AND PHYSICAL Name: MARAH GUZMAN Room #: 453-P [facility] IN ..#: [id number] Admission: 02/10/19 Attend Phys: Yoni Schreiber MD Discharge: Date of : 34 Report #: [id number] Lovenox, mirtazapine, magnesium oxide, ondansetron, and prednisone. ALLERGIES: SHE HAS ALLERGIES TO AMLODIPINE AND MORPHINE IN THE PAST. FAMILY HISTORY: Significant for longevity. She had a brother who had a brain tumor in the last couple of years. SOCIAL HISTORY: The patient is from Dr. Jose Guzman, had 5 children I believe, and has a number of grandchildren. She is a nonsmoker and nondrinker, has no vices that I am aware of. REVIEW OF SYSTEMS: She denies headaches. She denies abdominal pain, but admits to significant loss of appetite without emesis or nausea. She denies chest pain. She does not notice the shortness of breath, which she previously complained of chronically upon exertion. She has not been walking for at least a couple of months. No recent falls. No complaints of urinary issues at this time. She denies constipation or diarrhea. No dizziness. No migraines. She does complain of left lower extremity stiffening and pain, especially in the hip area. (Please note she had left hip intra-articular steroid injection in September of this year). PHYSICAL EXAMINATION: VITAL SIGNS: In the Emergency Room, weight of 99 pounds, pulse of 69, temperature of 36.6 degrees centigrade, respirations of 18 on room air with a pulse oximetry of 96% and a blood pressure of 143/76 supine I believe. GENERAL: The patient is an exceedingly thin elderly white female, lying in [facility] in the Emergency Room, but otherwise in no distress. Her voice is more hoarse than usual. HEENT: Normocephalic. No evidence of trauma. Extraocular muscles intact. Sinuses are nontender. Hearing is grossly normal. Oropharynx is exceedingly dry, as are her lips. NECK: No adenopathy or thyromegaly or mass or bruit. JVD disappears when the patient sits upright. LUNGS: Fairly clear to auscultation bilaterally. CARDIAC: Regular with occasional extrasystole. ABDOMEN: Soft. Bowel sounds are present. Abdomen is flat, scaphoid. No overt hernia or masses or bruit noted. EXTREMITIES: Without cyanosis or clubbing or peripheral edema. There are no heel wounds or pressure sores on the feet or lower extremities. She does have significant ecchymoses in both upper extremities and both lower extremities, particularly on the left side. Left hip is tender to the touch laterally. The right hip is nontender. NEUROLOGIC: Her mental status is alert, oriented to person and place, but not time. No hallucinations or delusions today. She has generalized without focal motor weakness. She has stocking distribution sensory losses in both lower extremities. Deep tendon reflexes are present and brisk in both upper and both [facility] [address] [place] [address] HISTORY AND PHYSICAL Name: MARAH GUZMAN Room #: 453-P [facility] IN [facility]#: [id number] Admission: 02/10/19 Attend Phys: Yoni Schreiber MD Discharge: Date of : 32 Report #: [id number] lower extremities. Cranial nerves 2-12 are intact. No Babinski sign bilaterally. Romberg's was not tested. LABORATORY DATA: From the Emergency Department. CBC: Hemoglobin 12.2 with an elevated MCV of 102.4 and an RDW of 19.1, also elevated. Platelet count is 340,000. Differential of the 11,400 white blood cell count shows 82% segmented neutrophils, 3% bands, 10% lymphocytes, 3% monocytes, 1% eosinophils and 1% metamyelocytes. Absolute neutrophil count is slightly elevated at 9700 and the microscopic red cell examination shows 1+ macrocytosis and 1+ anisocytosis and occasional polychromasia. The urinalysis shows slightly cloudy yellow urine with specific gravity of 1.025 suggesting dehydration, pH of 5, negative for protein, glucose, ketones, bilirubin, while being positive for 2+ blood, 2+ leukocytes and the microscopic revealed 4-10 squamous epithelial cells, 16-25 white blood cells per high power field, 3-10 red blood cells per high power field, 10-30 bacteria per high power field and moderate amorphous urates. Comprehensive metabolic panel shows sodium 146, potassium 3.0, chloride 117, CO2 of 20, BUN of 32, creatinine 0.6 suggesting dehydration. The anion gap was 9, which is normal. Glucose was 56 nonfasting. The AST was 20, ALT was 3.9, total bilirubin was less than 0.1, calcium was 5.3 with an albumin of 1.4, total protein is 3.9. Lactic acid level was 1.2. Electrocardiogram was done in the Emergency Room showed a sinus rhythm and I do not have access to the rhythm strip, but the plastic jig and fixture builder statements from the device suggests abnormal R-wave progression, early transition, consideration for left ventricular hypertrophy, anterior ST segment elevation probably due to left ventricular hypertrophy and compared to an EKG from 10/03/2018, ST-T wave deviation now present and Q-waves are no longer present. Left hip x-ray and pelvis were obtained tonight. No acute fracture was seen. Lumbar spine did not show any acute fractures, but showed prior chronic changes of vertebroplasty on L3 and prior compression fracture of L1, both seen on the CT scan of September of this year. ASSESSMENT AND PLAN: 1. Severe malnutrition with anorexia, of unknown cause. The very severe hypoalbuminemia and electrolyte disturbances and prerenal azotemia confirm the patient's story. Given the report about hospice consideration that I did not see in the Emergency Room note until some hours after admission, I will need to discuss this further with her family and herself in the morning. Given the degree of malnutrition, the chance for meaningful recovery appears slim, despite the patient's protestations that she wants to "start walking again." Her general failure despite aggressive measures to help her in the past several months suggests the appropriateness of the discussion prior to her transfer to the hospital. The patient does have a no code blue status, which I have discussed with her at length in the past and will enter in the record. 2. Adrenal insufficiency with hypokalemia -- we will support the patient with [address] [address] HISTORY AND PHYSICAL Name: MARAH GUZMAN Room #: 453-P ADM IN [facility].#: [id number] Admission: 02/10/19 Attend Phys: Yoni Schreiber MD Discharge: Date of : 34 Report #: [id number] oral steroids and IV fluids for now. I believe this might stimulate her appetite a bit. 3. Urinary tract infection. We will continue antibiotics for now. 4. 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 5. Complex past medical history -- we will continue the patient's current medication regimen as outlined above and interview her children about treatment expectations. <ELECTRONICALLY SIGNED> By: Yoni Schreiber MD 02/11/19 2216 26 Yoni Schreiber MD /nt
--- NOTE | 2019-02-12 04:16 | NUR ---
ASSUMED CARE AROUND 1900. AXOX3 WITH FATIGUE. ELEVATED BP ADDRESSED TO . MONITOR FOR NOW. RECEIVED ORDER TO POST VOID BLADDER SCAN PT, NOTED AT 225CC. CALLED PHYSICIAN AND RECEIVED A NEW ORDER FOR FLOMAX TO START THIS AM. IVF INFUSING AND INCONTINENCE NOTED THIS AM. NO S/S ACUTE DISTRESS NOTED OR REPORTED AT THIS TIME. WILL CONT TO MONITOR FOR ANY CHANGES IN CONDITION.
[2019-02-12 06:03] LABS: ALBUMIN 2.1 g/dL (3.4-5.0); CALCIUM 7.9 mg/dL (8.5-10.1); CREATININE 0.7 mg/dL (0.6-1.0); TOTAL BILIRUBIN 0.2 mg/dL (<0.1-1.0); TOTAL PROTEIN 5.1 g/dL (6.4-8.2)
[2019-02-12 06:05] LABS: POTASSIUM 5.4 mmol/L (3.5-5.1)
[2019-02-12 07:24] VITALS: BP 175/63
--- NOTE | 2019-02-12 12:10 | NUR ---
0700: REPORT REC FROM NOC SHIFT, CARE ASSUMED. [id number]: HOB ELEVATED FOR A.M. MEAL, PT ORIENTED TO NAME AND PLACE, RATES PAIN TO LT HIP "3" ON -10 NUMERICAL PAIN SCALE. REASSESSMENT COMPLETED, TAKES PILLS WHOLE WITH APPLESAUCE W/O DIFFICULTY, FEEDS SELF WITH SET UP ASSIST. FALL RISK INTERVENTIONS IN PLACE, NS WITH 20MEQ K+, RATE 80ML/HR, IV SITE TO LFA W/O EDEMA OR REDNESS. CONTINUES ON ROCEPHIN FOR UTI, NO ADVERSE REACTIONS NOTED.
--- NOTE | 2019-02-12 14:00 | NUR ---
DISCHARGE PLANNING. ANTICIPATED DISCHARGE PLANNED FOR SUNDAY. POST ACUTE RECOMMENDED AT DISCHARGE. REFERRAL FAXED TO [facility] PER PATIENT REQUEST. [facility] [place] NOT[facility]. AWAITING RESPONSE FROM THEM. FOLLOWING TO ASSIST WITH DISCHARGE.
[2019-02-12 14:55] VITALS: BP 174/76
--- NOTE | 2019-02-12 15:25 | NUR ---
TOWARDS POC PT REMAINED STABLE THE REST OF THE SHIFT. WILL CONTINUE TO MONITOR.
--- NOTE | 2019-02-12 16:10 | NUR ---
CM SPOKE WITH PT'S DTR YARI THIS AM. SHE INDICATED THAT SHE WAS RECEPTIVE TO PT GOING BACK SKILLED FOR A TIME AT [facility] BUT INDICATED THAT SHE HAD DONE THAT BEFORE AND QUICKLY INDICATES SHE DOESN'T WANT TO PARTICIPATE. CM DISCUSSED HOSPICE SERVICES AND SHE INDICATED THAT THEY MIGHT BE A GOOD OPTION IN THE FUTURE. DC FINANCIAL SALES REPRESENTATIVE FAXED REFERRAL TO [facility] FOR REVIEW. [place] INDICATED HE VISITED WITH PT AND WAS GOING TO FOLLOW UP WITH DTR ABOUT JUST ELECTING HOSPICE UPON DC. CM TO FOLLOW INDICATED WITH DC PLANNING.
[2019-02-12 19:22] VITALS: BP 171/67
[2019-02-13 03:57] VITALS: BP 185/69
--- NOTE | 2019-02-13 07:22 | NUR ---
A/O, calm and pleasant; BP elevated, denied headache. Morning BP medication was given. afebrile. bed rest.
[2019-02-13 08:02] VITALS: BP 185/77
--- NOTE | 2019-02-13 13:46 | NUR ---
TOWARDS POC PT VSS THROUGHOUT SHIFT. DENIES PAIN, NO NV. PT HAD FAIR APETITE. WILL CONTINUE TO MONITOR.
[2019-02-13 15:55] VITALS: BP 165/66
[2019-02-13 19:25] VITALS: BP 187/74
--- NOTE | 2019-02-14 01:12 | NUR ---
ASSESSMENT: PT REMAIN ALERT AND ORIENT TIMES THREE, FORGETFUL AT TIMES. INCONT WEARS BRIEFS. VSS, AFEBRILE. DENIES PAIN, SOB AND N/V. NOTED BRUSING AND RIGHT FORE ARM SKIN TEAR. ORDER WRITTEN FOR ORTHO'S BP TIMES THREE DAYS IN THE AM. SLOW PROGRESS TOWARDS DC GOALS. WILL CONTINUE TO MONITOR.
[2019-02-14 05:28] LABS: ALBUMIN 2.4 g/dL (3.4-5.0); CALCIUM 8.5 mg/dL (8.5-10.1); CREATININE 0.7 mg/dL (0.6-1.0); POTASSIUM 4.1 mmol/L (3.5-5.1)
[2019-02-14 07:48] VITALS: BP 189/81
[2019-02-14 08:55] VITALS: BP 185/92
[2019-02-14 14:37] VITALS: BP 149/65
--- NOTE | 2019-02-14 16:16 | NUR ---
CARE TEAM INDICATED THAT PT IS PROGRESSING TOWARD GOAL OF DC. DR. JOSEPH INDICATED THAT HE IS WORKING WITH PT AND DTR AND DISCUSSING POSSIBLE HOSPICE SERVICES UPON HER RETURN TO [facility]. CM AWAITING DIRECTION FOR DISCHARGE PLANNING. CM TO FOLLOW INDICATED WITH DC PLANNING.
[2019-02-14 19:46] VITALS: BP 167/78
--- NOTE | 2019-02-14 20:02 | NUR ---
PT A&OX4, VSS, C/O DULL PAIN IN LEFT HIP. FAMILY AT BEDSIDE. PATIENT HAS BEEN TURNED OFTEN. PATIENT HAS EATEN 10% OF EACH MEAL AND APPROX. 50% OF ENSURE SHAKE AND PUDDING. PATIENT HAD CT COMPLETED TODAY. WILL CONTINUE TO MONITOR.
[2019-02-14 23:42] VITALS: BP 168/78
[2019-02-15 03:30] VITALS: BP 184/80
--- NOTE | 2019-02-15 04:12 | NUR ---
ASSUMED CARE OF PT AT 1900HRS. PT AOX4 AND LETS NEEDS BE KNOWN. FALL PRECAUTION IN PLACE. PT WAS ABLE TO SLEEP PART OF THE SHIFT. NO COMPLAINTS OF PAIN OR N/V THIS SHIFT. NO S/S OF ACUTE DISTRESS. WILL CONTINUE TO MONITOR.
[2019-02-15 07:17] VITALS: BP 166/84
[2019-02-15 14:30] VITALS: BP 136/69
--- NOTE | 2019-02-15 17:55 | NUR ---
PT A&OX4, VSS, DENIES PAIN. PATIENT HAS EATEN MORE TODAY. MIRALAX ORDERED FOR CONSTIPATION AND GIVEN. PATIENT REMAINS STABLE, FAMILY AT BEDSIDE. WILL CONTINUE TO MONITOR.
[2019-02-15 18:15] VITALS: BP 125/54
--- NOTE | 2019-02-15 18:34 | NUR ---
PT C/O OF DIZZINESS APPROX. 1830, DENIES HEADACHE, SOA, CHEST PAIN. HOB RAISED, VITALS RECHECKED AND STABLE. WILL CONTINUE TO MONITOR.
[2019-02-15 19:30] VITALS: BP 129/64
--- NOTE | 2019-02-16 03:31 | NUR ---
ASSUMED CARE AROUDN 1900. AXOX3. C/O DIZZINESS. O2 SAT AT 92%. APPLIED 2L O2 FOR COMFORT AND CALLED . GEL COATER FOR . RECEIVED AN ORDER FOR MECLIZINE REDUCED DOSE. NO S/S ACUTE DISTRESS NOTED OR REPORTED AT THIS TIME. WILL CONT TO MONITOR FOR ANY CHANGES IN CONDITION.
[2019-02-16 08:03] VITALS: BP 171/75
--- NOTE | 2019-02-16 15:20 | NUR ---
PT A&OX4. IV INTACT IN L FA. REQUIRES ASSIST TO EAT. VERY WEAK. INCONT. OF BLADDER. TAKES MEDS WHOLE WITH APPLESAUCE AND WATER. INCONT OF BLADDER, HAS PAIN TO L HIP WHEN TURNED. POOR APPETITE DOES DRINK SUPPLEMENTS. BED ALARM ON. WILL CONT POC.
[2019-02-16 16:03] VITALS: BP 130/54
[2019-02-16 19:43] VITALS: BP 126/65
--- NOTE | 2019-02-17 02:04 | NUR ---
PATIENT AOX3 MAKES NEEDS KNOWN. PATIENT ENCOURAGED SUPPLEMENT AND TOOK 50% OF ENSURE. PATIENT INCONTINENT THIS SHIFT, PERICARE AND BARRIER CREAM APPLIED NEEDED.PATIENT BEEN NPO SINCE MIDNIGHT. PATIENT TURED Q 2 HOURS. PATIENT DENIED PAIN OR DISCOMFORT. PATIENT IN BED ASLEEP AT THIS TIME BREATHING REGULAR AND UNLABOURED.
[2019-02-17 05:49] LABS: HEMATOCRIT 40.2 % (37.0-47.0); HEMOGLOBIN 13.2 gm/dL (12.0-15.0); MCH 32.4 pg (26.0-34.0); MCHC 32.9 g/dL (28.0-37.0); MCV 98.7 fL (80.0-100.0); PLATELET COUNT 306 thou/uL (150-400); RBC 4.07 mil/uL (4.20-5.00); RDW 17.8 % (10.5-14.5); WBC 12.7 thou/uL (4.0-11.0)
[2019-02-17 06:03] LABS: ALBUMIN 2.4 g/dL (3.4-5.0); CALCIUM 8.5 mg/dL (8.5-10.1); CREATININE 0.8 mg/dL (0.6-1.0); TOTAL BILIRUBIN 0.2 mg/dL (<0.1-1.0)
[2019-02-17 06:35] LABS: ABSOLUTE NEUTROPHILS 10.9 thou/uL (1.4-8.2)
[2019-02-17 06:36] LABS: ANISOCYTOSIS 1+; PLATELET ESTIMATE NORMAL; POIKILOCYTOSIS 1+
[2019-02-17 07:10] VITALS: BP 166/70
[2019-02-17 07:26] VITALS: BP 150/59
--- NOTE | 2019-02-17 13:50 | NUR ---
Nutrition Follow Up: Calorie Count was ordered over the weekend, 02/14-02/16. Calorie Count not completed- no meal slips/results on door or anywhere in room for RD to assess/analyze. Pt ate 50% of 2 meals on 02/15, no meals recorded at all in EMR 02/16. Pt reports completing 100% of both supplements, but EMR indicates 50-75% completion. 02/16 nursing notes state poor appetite, but does drink supplements. Pt NPO all morning for test, back on diet for lunch eating cream of chicken soup and at least 1/2 milk carton. Encouraged pt to call kitchen to change items as needed to increase interest/palatability to help PO. Continue supplements BID for potential 700 kcals/day (50% needs). Pt feels constipated; has prn Miralax, encouraged pt to ask RN. Next f/up 02/20.
[2019-02-17 15:42] VITALS: BP 138/51
[2019-02-17 19:03] VITALS: BP 120/53
--- NOTE | 2019-02-17 20:26 | NUR ---
A&OX4, VSS, DENIES PAIN. PATIENT STABLE DENIES SOA AND CHEST PAIN. EGD COMPLETED TODAY. DIET ADVANCED BACK UP TO REGULAR AND PT TOLERATING WITHOUT ISSUE. INCONTINENCE CARE GIVEN. WILL CONTINUE TO MONITOR.
--- NOTE | 2019-02-18 05:16 | NUR ---
Assumed pt care at 1900. Pt A/OX4,denied pain on assessment. Questions why she can't walk and she was yesterday? Pt has increased weakness poor appetite, fluids encouraged without success. Pt is incontinent of bladder,reported no BM for a couple days Miralax administered at HS no results yet. Pt had a gagging episode after taking Nystatin switch & swallow and stated she'll not take it again informed the importance of the medication but hesistant to, will attempt this morning. Fall precautions in place.
[2019-02-18 07:49] VITALS: BP 150/85
[2019-02-18 16:06] VITALS: BP 111/59
--- NOTE | 2019-02-18 16:06 | PATH ---
[facility] [place] [address] PATHOLOGY RPT PROCEDURE Name: MARAH BUTTS Room #: 453-P ADM IN M.R.#: [id number] Admission: 02/10/19 Date of : 34 Discharge: Report #: [id number] Path Case #: [id number] [facility] Accession Number: [id number] . 01 Material submitted: . PART A: stomach - ANTRUM PART B: esophagus - ESOPHAGUS . 01 Clinician provided ICD-10: E 27.40 E43 . 01 Clinical history: . Pre-OP DX: GERD, anorexia Post-OP DX: Esoph. Melanie, gastric diverticulosis, hiatal hernia Unspecified adrenocortical insufficiency, unspecified severe protein-calorie malnutrition . 02 Diagnosis: A. Gastric mucosa, antrum, rule out H. pylori, endoscopic biopsy: - Mild chronic gastritis with features of reactive gastropathy. - Negative for intestinal metaplasia or atrophia. - Negative for Helicobacter pylori (properly controlled immunohistochemical stain performed). . B. Squamous mucosa, esophagus, rule out Melanie, endoscopic biopsy: - Mild active esophagitis. - Properly controlled GMS fungal special stain showing fungal hyphal elements present compatible with fungal etiology. (IUV:pit; 02/18/2019) QTP/02/18/2019 . 02 Electronically signed: . Rosmery Mario MD, Pathologist NPI- [id number] . 01 Gross description: . A. Received in formalin labeled "Marah Butts, FRANCA antrum, rule out H. pylori," is a single segment of auguste soft tissue measuring 0.6 cm in maximum dimension. The specimen is entirely submitted in cassette A1. . B. Received in formalin labeled "Marah Butts BX esophagus, rule out melanie," is a single segment of auguste soft tissue measuring 0.3 cm in maximum dimension. The specimen is entirely submitted in cassette B1. (TSD; 02/17/2019) TOB/TOB . 02 [place] [address] PATHOLOGY RPT PROCEDURE Name: MARAH BUTTS Room #: 453-P [facility] IN M.R.#: [id number] Admission: 02/10/19 Date of : 34 Discharge: Report #: [id number] Path Case #: [id number] Pathologist provided ICD-10: K31.9, K20.9 . 02 CPT . 628392, [id number], [id number], [id number] Specimen Comment: A courtesy copy of this report has been sent to Specimen Comment: [phone]. Specimen Comment: Report sent to ,DR JOSEPH / DR RADER Performed at: [address], [place] [id number] MD Jonathan Squires MD Phone: [phone] Performed at: [address] [id number] MD Rosmery Mario MD Phone: [phone]
--- NOTE | 2019-02-18 18:47 | NUR ---
AAOX4 PLEASANT AND COOPERATIVE. SOMEWHAT FORGETFUL. DAUGHTER VISITED TODAY. FAIR APPETITE FOR MEALS. INCONTINET OF URINE. C/0 LEFT HIP PAIN LIDOCAIN GEL APPLIED. IV LEFT FOREARM. RIGHT EYE RED NO DRAINAGE AND DENIES PAIN. WORKED WITH PT AND OT. TAKES MEDS WHOLE IN APPLESAUCE.
[2019-02-18 20:12] VITALS: BP 150/61
--- NOTE | 2019-02-19 03:58 | NUR ---
Assumed pt care at 1900. Pt is A/PAUL4,VSS. Denied pain on assessment. Reports she got up with PT and sat on the chair for a couple hours and tolerated well looking forward to dc back to [facility] today.Incontinent of B&B,barrier cream applied with each incontinent episode. Fall precautions in place,resting quietly with no distress noted at this time will continue to monitor pt.
[2019-02-19 07:27] VITALS: BP 181/63
[2019-02-19] MEDS ORDERED: FLUCONAZOLE 10100 MG PO (13:00)
[2019-02-19] MEDS ORDERED: FLOMAX0.4 MG PO (13:01)
[2019-02-19] MEDS ORDERED: BENAZEPRIL HCL20 MG PO (13:02)
[2019-02-19] MEDS ORDERED: TYLENOL EXTRA500 MG PO (13:03)
[2019-02-19] MEDS ORDERED: REMERON 30 MG T30 M1 PO (13:03)
[2019-02-19] MEDS ORDERED: MIRALAX17 GM PO (13:04)
[2019-02-19] MEDS ORDERED: PREDNISONE 20 M20 M1 PO (13:05)
[2019-02-19] MEDS ORDERED: SYNTHROID100 MC1 PO (13:06)
[2019-02-19] MEDS ORDERED: LIDOCAINE35.44 GM TOP (13:07)
[2019-02-19] MEDS ORDERED: PANTOPRAZOLE SO40 M1 PO (13:12)
[2019-02-19 13:50] VITALS: BP 125/60
--- NOTE | 2019-02-19 15:50 | NUR ---
CARE TEAM INDICATED THAT PT IS MEDICALLY STABLE TO DC TO [facility] THIS DAY. UPDATED CLINICAL WAS SENT TO THE FACTY FOR THEM TO SEEK AUTH. WE ARE AWAITING AUTH.
--- NOTE | 2019-02-19 16:51 | NUR ---
PT ALERT AND ORIENTED TIMES FOUR. VSS. PT DENIES PAIN/SOA. PT TOLERATES MEDS AND MEALS. POSSIBLE PLANS FOR DISCHARGE TODAY. PT PROGRESSING TOWRADS POC GOALS.
[2019-02-19 20:07] VITALS: BP 157/66
--- NOTE | 2019-02-20 05:16 | NUR ---
Assumed pt care at 1900.Pt A/OX4,VSS.Denies pain on assessment. Pt is incontinent of bladder,pericare done as needed. put order for pt to have a gastric emptying study;pt informed about it and agreeable to be NPO from midnight.Looking forward to dc today. Fall precautions in place. Resting quietly in bed w/o distress noted will continue to monitor pt.
[2019-02-20 07:24] VITALS: BP 185/67
[2019-02-20 13:00] VITALS: BP 156/63
[2019-02-20 14:49] VITALS: BP 144/74
--- NOTE | 2019-02-20 17:19 | NUR ---
PT ALERT AND ORIENTED TIMES FOUR. VSS, PT DENIES PAIN/SOA. PT TOLERATES MEDS AND DINNER. PT TURNED FREQUENTLY THIS SHIFT. PT SLOWLY PROGRESSING TOWRADS POC GOALS.
[2019-02-20 19:43] VITALS: BP 152/71
--- NOTE | 2019-02-21 06:34 | NUR ---
Assumed pt care at 1900. A/OX4,VSS. Denies pain on assessment.Pt informed about order to get an Ultrasound of liver/gallbladder in Am. Agreeable to being NPO from midnight. Pt is incontinent of bladder,pericare done as needed. Fall precautions in placed,resting quietly with eyes closed no distress will continue to monitor.
[2019-02-21 08:30] VITALS: BP 199/68
[2019-02-21 11:05] VITALS: BP 161/64
--- NOTE | 2019-02-21 14:19 | NUR ---
INSURANCE DENIED SKILLED FOR PT THIS DAY. CM NOTIFIED PHYSICAIN AND PT'S FAMILY AND BOTH ARE CONFORTABLE WITH PT RETURNING TO [facility] THIS DAY. CHART COPY ORDERED. ORDERS WERE FAXED. WHEELCHAIR VAN TRASNPORT ARRANGED FOR 0695. REPORT TO BE CALLED TO . NO OTHER CM INTERVENTION INDICATED. CASE CLOSED.
[2019-02-21 15:19] VITALS: BP 113/58
--- NOTE | 2019-02-21 17:57 | NUR ---
Assumed pt care this am, pt is a max assists of 2, pain was noted on her left hip lido cream placed. Pt verbalized she needed to have a bowel movement prior to dc since she not had one in a few days. Hydration promoted, food and suppliment intake encouraged and educated. Yola care done, fleet enema 2x done, pt had a large formed bm. VS stable, no other signs of distress or verbalizations have been noted. Called report to Fern kimble in [facility], pt is now dc.
== END 2019-02-21 18:05 | DRG 368 ==
LOC: ER 13:42 → EROBS 15:42 → 4W 15:42 → EROBS 16:05 → 4W 23:54
PROVIDERS: Emergency Medicine; Internal Medicine; ADMIT Internal Medicine
PROC: 0DB58ZX Excision of Esophagus, Via Natural or Artificial Opening Endoscopic, Diagnostic (ICD-10-PCS; principal; 2019-02-17)
PROC: 0DB68ZX Excision of Stomach, Via Natural or Artificial Opening Endoscopic, Diagnostic (ICD-10-PCS; principal; 2019-02-17)
DX: B37.81 Candidal esophagitis (principal); E43 Unspecified severe protein-calorie malnutrition; E27.40 Unspecified adrenocortical insufficiency; N39.0 Urinary tract infection, site not specified; Z68.1 Body mass index [BMI] 19.9 or less, adult; I50.32 Chronic diastolic (congestive) heart failure; G43.409 Hemiplegic migraine, not intractable, without status migrainosus; F32.9 Major depressive disorder, single episode, unspecified; K21.9 Gastro-esophageal reflux disease without esophagitis; I25.10 Atherosclerotic heart disease of native coronary artery without angina pectoris; E03.9 Hypothyroidism, unspecified; G62.9 Polyneuropathy, unspecified; I27.20 Pulmonary hypertension, unspecified; R68.81 Early satiety; E87.6 Hypokalemia; E88.09 Other disorders of plasma-protein metabolism, not elsewhere classified; M16.12 Unilateral primary osteoarthritis, left hip; M47.896 Other spondylosis, lumbar region; M35.3 Polymyalgia rheumatica; I95.1 Orthostatic hypotension; F43.20 Adjustment disorder, unspecified; R10.13 Epigastric pain; I11.0 Hypertensive heart disease with heart failure; K44.9 Diaphragmatic hernia without obstruction or gangrene; K29.70 Gastritis, unspecified, without bleeding; R62.7 Adult failure to thrive; R13.12 Dysphagia, oropharyngeal phase; J38.00 Paralysis of vocal cords and larynx, unspecified; T43.8X5A Adverse effect of other psychotropic drugs, initial encounter; T43.295A Adverse effect of other antidepressants, initial encounter; T39.395A Adverse effect of other nonsteroidal anti-inflammatory drugs [NSAID], initial encounter; Z88.6 Allergy status to analgesic agent; Z88.8 Allergy status to other drugs, medicaments and biological substances; Z98.42 Cataract extraction status, left eye; Z98.41 Cataract extraction status, right eye; Z86.73 Personal history of transient ischemic attack (TIA), and cerebral infarction without residual deficits; Z87.81 Personal history of (healed) traumatic fracture; Z80.8 Family history of malignant neoplasm of other organs or systems; Z82.49 Family history of ischemic heart disease and other diseases of the circulatory system; Z79.52 Long term (current) use of systemic steroids; Y92.89 Other specified places as the place of occurrence of the external cause; K59.00 Constipation, unspecified
CPT/HCPCS: 10040; 62110; 62900; 70005